=== PATIENT | male | born 1935 ===

== ENCOUNTER 2017-03-13 12:55 | Inpatient (IN) | payer MEDICARE, BC ==
[2017-03-13 12:55] VITALS: PULSE 80
[2017-03-13 13:01] VITALS: BMI 27.3
--- NOTE | 2017-03-13 13:16 | ED PDOC ---
Arrival/HPI - General Time Seen by Provider: 03/13/17 12:58 Historian: Patient - History of Present Illness Narrative History of Present Illness (Text): 03/13/17 13:10 A 82 year old male, whose past medical history includes diabetes, hypertension, hyperlipidemia, atrial fibrillation, pacemaker, CHF on lasix, CVA, GI bleeds and hypothyroidism, presents to the emergency department complaining of midsternal chest pain for approximately 45 minutes. Patient is unable to describe his pain and denies any radiation. Patient notes fatigue but denies any fever, chills, nausea, vomiting, abdominal pain, hematouria, hematochezia, shortness of breath, cough, numbness or any other complaints. Son notes constipation for 2 days. Denies any recent travel. Daughter reports patient was seen by urologist in [facility] yesterday for abdominal pain and urinary symptoms. Aspirin 325 mg was given by EMS prior to arrival. PMD: Dr. Hussein Time/Duration: Other (Approximately 45 minutes) Symptom Course: Unchanged Quality: Other Context: Home Past Medical History - Provider Review Nursing Documentation Reviewed: Yes - Infectious Disease Hx of Infectious Diseases: None - Tetanus Immunization Tetanus Immunization: Unknown - Cardiac Hx Cardiac Disorders: Yes Hx Hypertension: Yes Hx Internal Defibrillator: Yes Hx Pacemaker: Yes - Pulmonary Hx Respiratory Disorders: No - Neurological Hx Neurological Disorder: Yes HX Cerebrovascular Accident: Yes - HEENT Hx HEENT Disorder: Yes Hx Glaucoma: Yes - Renal Hx Renal Disorder: No - Endocrine/Metabolic Hx Endocrine Disorders: Yes Hx Diabetes Mellitus Type 1: Yes (using insulin pump) - Hematological/Oncological Hx Blood Disorders: Yes Hx Anemia: Yes - Integumentary Hx Dermatological Disorder: No - Musculoskeletal/Rheumatological Hx Musculoskeletal Disorders: Yes Hx Arthritis: Yes Hx Falls: No - Gastrointestinal Hx Gastrointestinal Disorders: Yes Other/Comment: recent nausea and diarrhea - Genitourinary/Gynecological Hx Genitourinary Disorders: No - Psychiatric Hx Psychophysiologic Disorder: No Hx Anxiety: No Hx Bipolar Disorder: No Hx Depression: No Hx Emotional Abuse: No Hx Hallucinations: No Hx Panic Disorder: No Hx Post Traumatic Stress Disorder: No Hx Psychosis: No Hx Physical Abuse: No Hx Schizophrenia: No Hx Sexual Abuse: No Hx Substance Use: No - Surgical History Other/Comment: cardiac stent, pacemaker - Anesthesia Hx Anesthesia: Yes Hx Anesthesia Reactions: No Hx Malignant Hyperthermia: No - Suicidal Assessment Feels Threatened In Home Enviroment: No Family/Social History - Physician Review Nursing Documentation Reviewed: Yes Family/Social History: No Known Family HX Smoking Status: Never Smoked Hx Alcohol Use: No Hx Substance Use: No Hx Substance Use Treatment: No Allergies/Home Meds Allergies/Adverse Reactions: Allergies No Known Allergies Allergy (Verified 12/10/16 18:43) Home Medications: Home Meds Medication Instructions Recorded Confirmed Allopurinol 300 mg PO DAILY 05/17/15 12/10/16 Carvedilol [Coreg] 12.5 mg PO BID 05/17/15 12/10/16 Furosemide [Lasix] 40 mg PO DAILY 05/17/15 12/10/16 Insulin Aspart, Recombinant 18 unit SC DAILY 05/17/15 12/10/16 [Novolog] Insulin Detemir [Levemir] 10 unit SC DAILY 05/17/15 12/10/16 Levothyroxine Sodium [Synthroid] 0.075 mg PO DAILY 05/17/15 12/10/16 Meclizine HCl [Meclizine] 25 mg PO TID 05/17/15 12/10/16 Nitroglycerin [Nitrostat] 0.4 mg SL PRN PRN 05/17/15 12/10/16 Cholecalciferol (Vitamin D3) 1,000 iu PO DAILY 07/30/15 12/10/16 [Vitamin D3] Aspirin [Adult Low Dose Aspirin EC] 81 mg PO DAILY 12/10/16 12/10/16 Atorvastatin [Lipitor] 20 mg PO DAILY 12/10/16 12/10/16 Digoxin [Lanoxin] 0.125 mg PO DAILY 12/10/16 12/10/16 Valsartan [Diovan] 80 mg PO DAILY 12/10/16 12/10/16 Review of Systems - Physician Review All systems were reviewed & negative as marked: Yes - Review of Systems Constitutional: Fatigue. absent: Fevers, Night Sweats Respiratory: absent: SOB, Cough Cardiovascular: Chest Pain Gastrointestinal: Constipation. absent: Abdominal Pain, Nausea, Vomiting, Hematochezia Genitourinary Male: absent: Hematuria Neurological: absent: Focal Weakness (/numbness) Physical Exam Vital Signs Reviewed: Yes Vital Signs Temp Pulse Resp BP Pulse Ox 03/13/17 15:03 79 18 121/90 98 03/13/17 13:31 98.1 F 75 16 132/70 99 03/13/17 13:26 98.1 F 75 16 132/70 99 03/13/17 13:01 98.2 F 75 18 109/70 97 Temperature: Afebrile Blood Pressure: Normal Pulse: Regular Respiratory Rate: Normal Appearance: Positive for: Non-Toxic, Comfortable, Other (Weak and pale appearing ) Pain Distress: None Mental Status: Positive for: Alert and Oriented X 3 - Systems Exam Head: Present: Atraumatic, Normocephalic Pupils: Present: PERRL Extroacular Muscles: Present: EOMI Conjunctiva: Present: Normal Mouth: Present: Moist Mucous Membranes Respiratory/Chest: Present: Clear to Auscultation, Good Air Exchange. No: Respiratory Distress, Accessory Muscle Use Cardiovascular: Present: Regular Rate and Rhythm, Normal S1, S2. No: Murmurs Abdomen: Present: Normal Bowel Sounds. No: Tenderness, Distention, Peritoneal Signs Rectal: Present: Normal Rectal Tone, Other (Brown stool, guaiac negative). No: Occult Blood, Rectal Tenderness, Gross Blood Upper Extremity: Present: Normal Inspection. No: Cyanosis, Edema Lower Extremity: Present: Normal Inspection, NORMAL PULSES. No: Edema, CALF TENDERNESS Neurological: Present: GCS=15, CN II-XII Intact, Speech Normal, Motor Func Grossly Intact, Normal Sensory Function, Normal Cerebellar Funct, Norm Deep Tendon Reflexes Skin: Present: Warm, Dry, Pale. No: Rashes Psychiatric: Present: Alert, Oriented x 3, Normal Insight, Normal Concentration Medical Decision Making ED Course and Treatment: 03/13/17 13:10 Impression: A 82 year old male with midsternal chest pain. Pale and weak on exam. Differential Diagnosis included but are not limited to: Chest pain, rule out ACS vs. Musculoskeletal vs. Anemia vs. Dissection Plan: -- Chest xray -- EKG -- Labs -- Urine culture and Urinalysis -- Aspirin -- Reassess and disposition Prior Visits: Notes and results from previous visits were reviewed. Patient last seen in the ED on 12/10/16 for YATES, abdominal pain and fatigue. Patient was hospitalized for abdominal pain and congestive heart failure. Progress Notes: EKG shows paced rhythm at 75 BPM with morphological changes compared to EKG from 12/10/16. Interpreted by me. 03/13/17 13:[address] Hi, who requested a copy of current EKG to compare to prior. Report Date : 03/13/2017 13:52:48 Procedure: Chest xray Dictator : Desmond Hernandez MD IMPRESSION: No active disease. 03/13/17 14:02 Rectal exam performed by me, chaperoned by EMT Amelie, showed normal tone, brown stool, guaiac negative. 03/13/17 14:[address] Hussein, who states to admit patient under the hospitalist. 03/13/17 14:[address] Hi, who recommends Nitroglycerin. States he will evaluate patient today. 03/13/17 15:16 Case handed off to Dr. Carrillo, hospitalist, to be admitted under his service. 03/13/17 15:35 Patient now complaining of feeling lightheaded but daughter also says he's been dizzy all week. Neuro exam repeat: No NFD; CN2-12intact, 5/5 MS, Sensation intact and equal; good finger to nose exam. Patient states at times he takes meclizine for this but it's not making him feel better. CT head ordered and case discussed again with Dr. Ulysses Gold who will f/u on CT results. - Critical Care Critical Care Minutes: 30 minutes - Lab Interpretations Lab Results: 03/13/17 13:00 03/13/17 13:00 Lab Results 03/13/17 13:40: Blood Type O POSITIVE, Antibody Screen Negative, BBK History Checked Patient has bt 03/13/17 13:21: Urine Color Yellow, Urine Appearance Sl cloudy, Urine pH 6.0, Ur Specific [place] >= 1.030, Urine Protein >=300 H, Urine Glucose (UA) 500 H, Urine Ketones Negative, Urine Blood Trace-intact H, Urine Nitrate Negative, Urine Bilirubin Negative, Urine Urobilinogen 1.0 H, Ur Leukocyte Esterase Negative, Urine RBC 0 - 2, Urine WBC 2 - 5, Ur Epithelial Cells 1 - 3, Urine Bacteria Mod 03/13/17 13:00: Digoxin 0.6 L 03/13/17 13:00: TSH 3rd Generation 4.81 H 03/13/17 13:00: PT 12.2 H, INR 1.13 H, APTT 24.7 03/13/17 13:00: Sodium 135, Potassium 4.9, Chloride 96 L, Carbon Dioxide 30, Anion Gap 14, BUN 27 H, Creatinine 1.2, Est GFR ( Amer) > 60, Est GFR ( Non-Af Amer) 58, Random Glucose 388 H* D, Calcium 9.2, Magnesium 2.3 H, Total Bilirubin 1.2, AST 39, ALT 43, Alkaline Phosphatase 164 H, Lactate Dehydrogenase 519, Total Creatine Kinase 81, Troponin I 0.06 D, NT-Pro-B Natriuret Pep 2620 H, Total Protein 7.0, Albumin 4.0, Globulin 3.1, Albumin/ Globulin Ratio 1.3 03/13/17 13:00: WBC 5.2 D, RBC 3.98, Hgb 11.9 L, Hct 36.9 L, MCV 92.7, MCH 29.9 , MCHC 32.2, RDW 15.0 H, Plt Count 105 L, MPV 11.2 H, Gran % 72.9 H, Lymph % ( Auto) 18.2 L, [place] % (Auto) 7.9 H, Eos % (Auto) 0.6 L, Baso % (Auto) 0.4, Gran # 3.81, Lymph # 1.0 L, [place] # 0.4, Eos # 0.0, Baso # 0.02 I have reviewed the lab results: Yes Interpretation: Abnormal lab values (glucose elevated and treated with insulin) - RAD Interpretation Radiology Orders: 03/13/17 13:11 CHEST PORTABLE [RAD] Stat Seed Specialist: Radiologist - Medication Orders Current Medication Orders: Discontinued Medications Aspirin (Aspirin) 325 mg PO STAT STA Stop: 03/13/17 13:10 Last Admin: 03/13/17 13:36 Dose: Insulin Human Regular (Humulin R) 7 units IVP STAT STA Stop: 03/13/17 14:05 Last Admin: 03/13/17 14:53 Dose: 7 units Nitroglycerin (Nitro-Bid 2% Oint) 1 ea TOP STAT STA Stop: 03/13/17 14:22 Last Admin: 03/13/17 15:00 Dose: 1 ea Ondansetron HCl (Zofran Inj) 4 mg IVP STAT STA Stop: 03/13/17 13:22 Last Admin: 03/13/17 15:01 Dose: 4 mg Ondansetron HCl (Zofran Inj) Confirm Administered Dose 4 mg .ROUTE .STK-MED ONE Stop: 03/13/17 13:24 Last Admin: 03/13/17 13:36 Dose: 4 mg Ondansetron HCl (Zofran Inj) 4 mg IVP STAT STA Stop: 03/13/17 14:47 Last Admin: 03/13/17 15:02 Dose: 4 mg NIHSS Scale ([place]) Time Performed: 12:59 - How Severe is the Stoke Baseline Level of Consciousness: 0=Alert LOC to Questions: 0=Both comments correct LOC to commands: 0=Obeys both correctly Best Gaze: 0=Normal Visual: 0=No visual loss Facial: 0=Normal Motor Arm - Left: 0=No drift Motor Arm - Right: 0=No drift Motor Leg - Left: 0=No drift Motor Leg - Right: 0=No drift Limb Ataxia: 0=Absent Sensory: 0=Normal Best Language: 0=No aphasia Dysarthia: 0=Normal articulation Extinction & Inattention (Neglect): 0=Normal, no object Score: 0 Risk Level: No Stroke Risk - Scribe Statement The provider has reviewed the documentation as recorded by the Shannon Quezada Provider Scribe Attestation: All medical record entries made by the Scribe were at my direction and personally dictated by me. I have reviewed the chart and agree that the record accurately reflects my personal performance of the history, physical exam, medical decision making, and the department course for this patient. I have also personally directed, reviewed, and agree with the discharge instructions and disposition. Disposition/Present on Arrival - Present on Arrival Any Indicators Present on Arrival: No History of DVT/PE: No History of Uncontrolled Diabetes: No Urinary Catheter: No History Surgical Site Infection Following: None - Disposition Have Diagnosis and Disposition been Completed?: Yes Diagnosis: Chest pain Disposition: HOSPITALIZED Disposition Time: 15:35 Patient Plan: Observation Condition: FAIR
[2017-03-13 13:30] LABS: ADD MANUAL DIFF? NO
[2017-03-13 13:40] LABS: BASO # 0.02 K/mm3 (0.0-2.0); BASO % 0.4 % (0.0-3.0); EOS % 0.6 % (1.5-5.0); GRAN # 3.81 (1.4-6.5); GRAN % 72.9 % (50.0-68.0); HEMATOCRIT 36.9 % (42.0-52.0); LYMPH % 18.2 % (22.0-35.0); MEAN CELL VOLUME 92.7 fL (80.0-105.0); MEAN CORPUSCULAR HEMOGLOBIN 29.9 pg (25.0-35.0); MEAN CORPUSCULAR HGB CONC 32.2 g/dl (31.0-37.0); MEAN PLATELET VOLUME 11.2 fl (7.0-11.0); MONO # 0.4 (0.1-0.6); MONO % 7.9 % (1.0-6.0); PLATELET COUNT 105 10^3/uL (120.0-450.0); WHITE BLOOD COUNT 5.2 10^3/ul (4.5-11.0)
[2017-03-13 13:46] LABS: ALB/GLOB RATIO 1.3 (1.1-1.8); ALKALINE PHOSPHATASE 164 U/L (38-133); ALT/SGPT 43 U/L (7-56); AST/SGOT 39 U/L (15-59); BILIRUBIN,TOTAL 1.2 mg/dL (0.2-1.3); BLOOD UREA NITROGEN 27 mg/dL (7-21); CALCIUM 9.2 mg/dL (8.4-10.5); CARBON DIOXIDE 30 mmol/L (21-33); CHLORIDE 96 mmol/L (98-107); GFR AFRICAN-AMERICAN > 60; INR 1.13 (0.93-1.08); MAGNESIUM 2.3 mg/dL (1.7-2.2); PARTIAL THROMBOPLASTIN TIME 24.7 Seconds (23.7-30.8); POTASSIUM 4.9 mmol/L (3.6-5.0); SODIUM 135 mmol/L (132-148)
--- NOTE | 2017-03-13 13:54 | RAD ---
HISTORY: chest pain COMPARISON: 12/08/2016 FINDINGS: LUNGS: No active pulmonary disease. PLEURA: No significant pleural effusion identified, no pneumothorax apparent. CARDIOVASCULAR: Moderate cardiomegaly. Single lead pacemaker OSSEOUS STRUCTURES: No significant abnormalities. VISUALIZED UPPER ABDOMEN: Normal. OTHER FINDINGS: Single lead pacemaker IMPRESSION: No active disease.
[2017-03-13 13:58] LABS: GLUCOSE,RANDOM 388 mg/dL (70-110); TROPONIN I 0.06 ng/mL
[2017-03-13 14:04] LABS: URINE BILIRUBIN NEGATIVE (NEGATIVE); URINE BLOOD TRACE-INTACT (NEGATIVE); URINE GLUCOSE (UA) 500 mg/dL (NEGATIVE); URINE KETONE NEGATIVE (NEGATIVE); URINE LEUKOCYTE ESTERASE NEGATIVE Leu/uL (NEGATIVE); URINE PROTEIN >=300 mg/dL (<30 mg/dL)
[2017-03-13] MEDS ORDERED: Insulin Regular 1 UNITS/0.01 ML ML IVP STA ×2 (14:04→16:14)
[2017-03-13 14:06] LABS: URINE APPEARANCE SL CLOUDY (CLEAR); URINE COLOR YELLOW (YELLOW)
[2017-03-13 14:14] LABS: URINE BACTERIA MOD (NEG); URINE RBC 0 - 2 /hpf (0-2)
[2017-03-13] MEDS ORDERED: Nitroglycerin 2% Ointment Foilpak UD TOP STA (14:21)
--- NOTE | 2017-03-13 17:00 | CT ---
PROCEDURE: CT HEAD WITHOUT CONTRAST. HISTORY: dizzy vs lightheaded for a week COMPARISON: Noncontrast head CT performed 12/12/16 TECHNIQUE: Axial computed tomography images were obtained through the head/brain without intravenous contrast. Radiation dose: Total exam DLP = 725.84 mGy-cm. This CT exam was performed using one or more of the following dose reduction techniques: Automated exposure control, adjustment of the mA and/or kV according to patient size, and/or use of iterative reconstruction technique. FINDINGS: HEMORRHAGE: No intracranial hemorrhage. BRAIN: Diffuse atrophy with prominence of the ventricles and sulci noted. No mass effect or edema. Dense intracranial atherosclerotic calcifications. Bilateral basal ganglia calcifications. Chronic right parietal occipital lobe encephalomalacia. Mild scattered white matter hypodensities, which are nonspecific, but often seen with chronic microvascular ischemic disease. Please note that MRI with diffusion imaging is more sensitive in the detection of acute ischemic event. VENTRICLES: No hydrocephalus. CALVARIUM: Unremarkable. PARANASAL SINUSES: Mucosal thickening left sphenoid sinus. Trace fluid/mucosal thickening, right maxillary sinus. MASTOID AIR CELLS: Unremarkable as visualized. No inflammatory changes. OTHER FINDINGS: None. IMPRESSION: Generalized atrophy. Dense intracranial atherosclerotic calcifications. Chronic right parieto-occipital lobe encephalomalacia. Mild scattered nonspecific white matter changes. Please note that MRI with diffusion imaging is more sensitive in the detection of acute ischemic event. Mucosal thickening of the left sphenoid sinus. Trace fluid/mucosal thickening, right maxillary sinus.
--- NOTE | 2017-03-13 17:31 | CP.PCM.HP ---
<Carlitos Angeles - Last Filed: 03/13/17 20:22> History of Present Illness - History of Present Illness History of Present Illness: A 82 year old male, whose past medical history includes diabetes, hypertension, hyperlipidemia, atrial fibrillation, pacemaker, CHF on lasix, CVA, GI bleeds and hypothyroidism, presents to the emergency department complaining of constant left and right sided, non-radiating 9/10 chest pain since this morning. Prior to to the chest pain, the pt. took Keflex for a UTI that had been diagnosed the previous day at [facility]. Pt. also complained of dizziness , nausea, vomiting, and consitpation from the previous day and dysuria. Pt. denies any fever, chills, hematouria, hematochezia, shortness of breath, cough, numbness or any other complaints. Daughter reports patient was seen by urologist in [facility] yesterday for abdominal pain and urinary symptoms. Aspirin 325 mg was given by EMS prior to arrival. PMD: Dr. Hussein Urologist: Dr. Hahn Telephoto Installer: Dr. Taylor PMH: Diabetes HTN HLD Afib, s/p pacemaker CHF CVA GI Bleeds Hypothyroidism Denies any recent travel Denies sick contacts Tob: denies Alc: denies Drug: denies All: NKDA Present on Admission - Present on Admission Any Indicators Present on Admission: No Review of Systems - EENT Eyes: absent: Change in Vision Ears: Dizziness Nose/Mouth/Throat: absent: Sore Throat, Neck Pain - Cardiovascular Cardiovascular: Chest Pain, Chest Pain at Rest. absent: Edema, Pain Radiating to Arm/Neck/Jaw, Leg Edema, Pedal Edema - Respiratory Respiratory: absent: Hemoptysis, Dyspnea on Exertion, Wheezing, Pain on Inspiration, Chest Congestion - Gastrointestinal Gastrointestinal: Abdominal Pain, Constipation, Nausea, Vomiting (Non Bloody). absent: Coffee Ground Emesis, Diarrhea, Dysphagia, Hematemesis, Hematochezia - Genitourinary Genitourinary: Dysuria. absent: Flank Pain - Integumentary Integumentary: absent: Rash, Skin Pain, Wounds - Neurological Neurological: Dizziness. absent: Abnormal Hearing, Abnormal Movements, Headaches - Psychiatric Psychiatric: Anxiety, Irritability - Endocrine Endocrine: Heat Intolorance. absent: Cold Intolorance, Polydipsia, Polyphagia, Polyuria Past Patient History - Infectious Disease Hx of Infectious Diseases: None - Tetanus Immunizations Tetanus Immunization: Unknown - Past Social History Smoking Status: Never Smoked Drugs: Denies Home Situation {Lives}: With Family - CARDIAC Hx Cardiac Disorders: Yes Hx Hypertension: Yes Hx Internal Defibrillator: Yes Hx Pacemaker: Yes - PULMONARY Hx Respiratory Disorders: No - NEUROLOGICAL Hx Neurological Disorder: Yes HX Cerebrovascular Accident: Yes - HEENT Hx HEENT Problems: Yes Hx Glaucoma: Yes - RENAL Hx Chronic Kidney Disease: No - ENDOCRINE/METABOLIC Hx Endocrine Disorders: Yes Hx Diabetes Mellitus Type 1: Yes (using insulin pump) - HEMATOLOGICAL/ONCOLOGICAL Hx Blood Disorders: Yes Hx Anemia: Yes - INTEGUMENTARY Hx Dermatological Problems: No - MUSCULOSKELETAL/RHEUMATOLOGICAL Hx Musculoskeletal Disorders: Yes Hx Arthritis: Yes Hx Falls: No - GASTROINTESTINAL Hx Gastrointestinal Disorders: Yes Other/Comment: recent nausea and diarrhea - GENITOURINARY/GYNECOLOGICAL Hx Genitourinary Disorders: No - PSYCHIATRIC Hx Psychophysiologic Disorder: No Hx Anxiety: No Hx Bipolar Disorder: No Hx Depression: No Hx Emotional Abuse: No Hx Hallucinations: No Hx Panic Symptoms: No Hx Post Traumatic Stress Disorder: No Hx Psychosis: No Hx Physical Abuse: No Hx Schizophrenia: No Hx Sexual Abuse: No Hx Substance Use: No - SURGICAL HISTORY Other/Comment: cardiac stent, pacemaker - ANESTHESIA Hx Anesthesia: Yes Hx Anesthesia Reactions: No Hx Malignant Hyperthermia: No Meds Home Medications: Home Medication List Medication Instructions Recorded Confirmed Type Cholecalciferol [Vitamin D 1000 IU] 1,000 iu PO DAILY tab 03/15/17 Rx Insulin Human Regular-MED [HumuLIN 0 units SC ACHS ml 03/15/17 Rx R MED] Zolpidem [Ambien] 5 mg PO HS PRN tab 03/15/17 Rx Allergies/Adverse Reactions: Allergies Allergy/AdvReac Type Severity Reaction Status Date / Time No Known Allergies Allergy Verified 12/10/16 18:43 Physical Exam - Constitutional Appears: Non-toxic, No Acute Distress - Head Exam Head Exam: ATRAUMATIC, NORMOCEPHALIC - Eye Exam Eye Exam: EOMI, Normal appearance - ENT Exam ENT Exam: Mucous Membranes Moist - Neck Exam Neck exam: Positive for: Normal Inspection - Respiratory Exam Respiratory Exam: Clear to Auscultation Bilateral, NORMAL BREATHING PATTERN - Cardiovascular Exam Cardiovascular Exam: REGULAR RHYTHM, RRR, +S1, +S2. absent: Systolic Murmur - GI/Abdominal Exam GI & Abdominal Exam: Hypoactive Bowel Sounds, Normal Bowel Sounds, Soft. absent : Distended, Firm, Guarding, Rebound, Rigid, Tenderness - Extremities Exam Extremities exam: Positive for: full ROM, pedal pulses present. Negative for: joint swelling - Back Exam Back exam: NORMAL INSPECTION. absent: CVA tenderness (L), CVA tenderness (R), rash noted, tenderness, vertebral tenderness - Neurological Exam Neurological exam: Alert, CN II-XII Intact, Oriented x3 - Psychiatric Exam Psychiatric exam: Agitated, Normal Affect - Skin Skin Exam: Dry, Intact, Normal Color, Warm Results - Vital Signs Recent Vital Signs: Last Vital Signs Temp 98.1 F 03/13/17 13:31 Pulse 76 03/13/17 15:54 Resp 16 03/13/17 15:54 BP 94/50 L 03/13/17 15:54 Pulse Ox 100 03/13/17 15:54 - Labs Result Diagrams: 03/13/17 13:00 03/13/17 13:00 Assessment & Plan - Assessment and Plan (Free Text) Assessment: 82M with complaints of chest pain, dizziness, and UTI Plan: Chest Pain Trop #1 negative at .06 Trop #2 positive at 1.16 EKG shows paced rhythm at 75 BPM with morphological changes compared to EKG from 12/10/16. -needs official read CXR No Active Disease, Moderate Cardiomegaly Cardiology Consult - Dr. Taylor - appreciate recs Nitroglycerin prn ASA 81mg daily Lipitor 20mg daily Coreg 12.5 BID CHF(systolic) Continue Digoxin .125mg Continue Lasix 40mg Echo 11/2016 shows EF 30% BNP 2620 UTI diagnosed at [facility] 1 day prior to admission UA positive for protein, glucose possible adverse reaction to Keflex 1gm IV Ceftriaxone given ID Consult - Dr. Vasques - appreciate recs Dizziness Meclizine 25mg CT Head - please read full report -Gen atrophy, dense intracranial atherosclerotic calcifications -Chronic right parieto-occipital lobe encephalomalacia Diabetes ISS Med HgA1C ordered Hypothyroidism TSH 4.81 mildly elevated continue Synthroid 75mcg Hx of GI Bleed Stool Guaiac negative - Date & Time Date: 03/13/17 Time: 15:00 <Mehrdad Gold - Last Filed: 03/15/17 13:49> Results - Vital Signs Recent Vital Signs: Last Vital Signs Temp 97.7 F 03/15/17 06:00 Pulse 75 03/15/17 09:05 Resp 18 03/15/17 06:00 BP 119/77 03/15/17 09:05 Pulse Ox 98 03/15/17 06:00 - Labs Result Diagrams: 03/15/17 07:00 03/15/17 07:00 Labs: Laboratory Results - last 24 hr 03/14/17 03/14/17 03/14/17 16:13 18:47 19:00 WBC RBC Hgb Hct MCV MCH MCHC RDW Plt Count MPV Gran % Lymph % (Auto) [place] % (Auto) Eos % (Auto) Baso % (Auto) Gran # Lymph # [place] # Eos # Baso # APTT 48.5 H Sodium Potassium Chloride Carbon Dioxide Anion Gap BUN Creatinine Est GFR ( Amer) Est GFR (Non-Af Amer) POC Glucose (mg/dL) 269 H Random Glucose Calcium Total Bilirubin AST ALT Alkaline Phosphatase Total Protein Albumin Globulin Albumin/Globulin Ratio Ur Random Creatinine 135 Ur Random Sodium 13 Ur Random Potassium 91.4 Ur Random Urea Nitrogn 363 03/14/17 03/15/17 03/15/17 21:06 02:45 07:00 WBC 14.1 H D RBC 4.14 Hgb 12.2 L Hct 37.4 L MCV 90.3 MCH 29.5 MCHC 32.6 RDW 15.4 H Plt Count 119 L MPV 12.6 H Gran % 82.7 H Lymph % (Auto) 7.6 L [place] % (Auto) 9.6 H Eos % (Auto) 0.0 L Baso % (Auto) 0.1 Gran # 11.69 H Lymph # 1.1 L [place] # 1.4 H Eos # 0.0 Baso # 0.01 APTT 85.7 H* Sodium Potassium Chloride Carbon Dioxide Anion Gap BUN Creatinine Est GFR ( Amer) Est GFR (Non-Af Amer) POC Glucose (mg/dL) 189 H Random Glucose Calcium Total Bilirubin AST ALT Alkaline Phosphatase Total Protein Albumin Globulin Albumin/Globulin Ratio Ur Random Creatinine Ur Random Sodium Ur Random Potassium Ur Random Urea Nitrogn 03/15/17 07:00 WBC RBC Hgb Hct MCV MCH MCHC RDW Plt Count MPV Gran % Lymph % (Auto) [place] % (Auto) Eos % (Auto) Baso % (Auto) Gran # Lymph # [place] # Eos # Baso # APTT Sodium 132 Potassium 4.4 Chloride 99 Carbon Dioxide 17 L Anion Gap 20 BUN 67 H Creatinine 2.7 H Est GFR ( Amer) 28 Est GFR (Non-Af Amer) 23 POC Glucose (mg/dL) Random Glucose 183 H Calcium 8.3 L Total Bilirubin 1.2 AST 1194 H ALT 886 H Alkaline Phosphatase 162 H Total Protein 6.6 Albumin 3.9 Globulin 2.8 Albumin/Globulin Ratio 1.4 Ur Random Creatinine Ur Random Sodium Ur Random Potassium Ur Random Urea Nitrogn Attending/Attestation - Attestation I have personally seen and examined this patient.: Yes I have fully participated in the care of the patient.: Yes I have reviewed all pertinent clinical information: Yes Notes (Text): I have seen and examined patient at bedside. Agree with the above note with the following additions/ exceptions: This is 82 year old male with history of DM-2 hypertension, hyperlipidemia, chronic atrial fibrillation, pacemaker, CHF due to systolic dysfunction (EF~30%) on lasix, CVA, GI bleeds and hypothyroidism, recently diagnosed with UTI on keflex who came for evaluation of chest pain and found to have IA. EKG showed paced rhythm. Initial trop borderline however second trop was elevated. Telephoto Installer on board. He was started on lovenox. CXR negative. Patient also has partially treated UTI. Will give one dose of rocephin and will consult ID. One of the BP reading was low. Will hold his bp meds today and will give IVF for few hours. Patient reports that at home he was dizzy and his packaging materials inspector recommended to stop taking valsartan. He didnt take any bp meds today and still BP is on the lower side. He appears volume depleted. Urine output also low. Dr Mehrdad Gold
[2017-03-13] MEDS ORDERED: cefTRIAXone 1 gm 1 GM/100 ML BAG IVPB STA (17:44)
[2017-03-13] MEDS: Sodium Chloride 0.9% 100 ML IV SCH ×2 (18:56→22:31)
--- NOTE | 2017-03-13 20:18 | CARD ---
APPROVED REPORT EKG Measurement Heart [id number] <Conclusion> Electronic ventricular pacemaker
[2017-03-13] MEDS ORDERED: Pneumococcal 23-Valent Vaccine IM ONE (21:20)
[2017-03-13] MEDS: Insulin Reg-MEDIUM-Coverage SC SCH (22:07)
[2017-03-13] MEDS: Enoxaparin 80 mg Syringe SC SCH (22:08)
[2017-03-14 06:57] LABS: ADD MANUAL DIFF? NO
[2017-03-14 07:06] LABS: BASO # 0.01 K/mm3 (0.0-2.0); BASO % 0.1 % (0.0-3.0); GRAN # 8.35 (1.4-6.5); GRAN % 80.3 % (50.0-68.0); HEMATOCRIT 40.3 % (42.0-52.0); LYMPH # 1.1 (1.2-3.4); MEAN CORPUSCULAR HEMOGLOBIN 29.5 pg (25.0-35.0); MEAN PLATELET VOLUME 11.9 fl (7.0-11.0); MONO # 0.9 (0.1-0.6); MONO % 8.6 % (1.0-6.0); PLATELET COUNT 114 10^3/uL (120.0-450.0); WHITE BLOOD COUNT 10.4 10^3/ul (4.5-11.0)
[2017-03-14 07:14] LABS: ALB/GLOB RATIO 1.5 (1.1-1.8); BILIRUBIN,TOTAL 1.6 mg/dL (0.2-1.3); CALCIUM 8.9 mg/dL (8.4-10.5)
[2017-03-14 07:37] LABS: POTASSIUM 6.2 mmol/L (3.6-5.0)
[2017-03-14] MEDS ORDERED: Sodium Chloride 0.9% 1,000 ML IV SCH ×3 (07:45→15:53)
[2017-03-14] MEDS ORDERED: Insulin Lispro (humaLOG) MEDIUM Coverage SC STA (08:01)
[2017-03-14] MEDS ORDERED: Dextrose 50% SYRINGE Inj (50 ml) IVP ONE (08:03)
[2017-03-14] MEDS: Insulin Reg-MEDIUM-Coverage SC SCH ×4 (08:22→21:28)
--- NOTE | 2017-03-14 09:46 | CP.PCM.PN ---
<Carlitos Angeles - Last Filed: 03/14/17 20:29> Subjective - Date & Time of Evaluation Date of Evaluation: 03/14/17 Time of Evaluation: 07:00 - Subjective Subjective: 82 year old male, whose pmh includes recent UTI, DM, HTN, CAD, HLD, Afib w/ pacemaker, CHF on lasix, CVA, GI bleeds and hypothyroidism presented to the ED complaining of constant left and right sided, non-radiating 9/10 chest pain. Today, he still complains of chest pain, but denies any other symptoms including headache, fever, chills, shortness of breath, N/V/D, or any dysuria. Objective - Vital Signs/Intake and Output Vital Signs (last 24 hours): Temp Pulse Resp BP Pulse Ox 97 F L 75 20 129/82 97 03/14/17 06:00 03/14/17 06:00 03/14/17 06:00 03/14/17 06:00 03/14/17 06:00 Intake and Output: 03/14/17 03/14/17 06:59 18:59 Intake Total 380 Output Total 400 Balance -20 - Medications Medications: Current Medications Aspirin (Ecotrin) 81 mg PO DAILY [facility] Last Admin: 03/13/17 17:43 Dose: Not Given Atorvastatin Calcium (Lipitor) 20 mg PO DAILY [facility] Last Admin: 03/13/17 22:08 Dose: 20 mg Carvedilol (Coreg) 12.5 mg PO BID [facility] Cholecalciferol (Vitamin D) 1,000 iu PO DAILY [facility] Digoxin (Lanoxin) 0.125 mg PO 1400 [facility] Enoxaparin Sodium (Lovenox) 70 mg SC Q12H [facility] PRN Reason: Protocol Last Admin: 03/13/17 22:08 Dose: 70 mg Furosemide (Lasix) 40 mg PO DAILY [facility] Sodium Chloride (Sodium Chloride 0.9%) 1,000 mls @ 100 mls/hr IV .Q10H [facility] Last Admin: 03/14/17 08:49 Dose: 100 mls/hr Insulin Human Regular (Humulin R Med) 0 units SC ACHS [facility] PRN Reason: Protocol Last Admin: 03/14/17 08:22 Dose: 8 units Levothyroxine Sodium (Synthroid) 75 mcg PO DAILY [facility] Lorazepam (Ativan) 0.5 mg IVP Q6 PRN; Protocol PRN Reason: Anxiety Last Admin: 03/13/17 20:26 Dose: 0.5 mg Meclizine HCl (Antivert) 25 mg PO TID PRN PRN Reason: Dizziness Last Admin: 03/13/17 17:49 Dose: 25 mg Nitroglycerin (Nitrostat Sl Tab) 0.4 mg SL Q5M PRN PRN Reason: CHEST PAIN - Labs Labs: 03/14/17 06:15 03/14/17 06:15 PT 12.2 Seconds (9.9-11.8) H 03/13/17 13:00 INR 1.13 (0.93-1.08) H 03/13/17 13:00 APTT 24.7 Seconds (23.7-30.8) 03/13/17 13:00 - Constitutional Appears: Non-toxic, No Acute Distress - Head Exam Head Exam: ATRAUMATIC, NORMOCEPHALIC - Eye Exam Eye Exam: EOMI - ENT Exam ENT Exam: Mucous Membranes Dry - Neck Exam Neck Exam: Full ROM, Normal Inspection. absent: Lymphadenopathy - Respiratory Exam Respiratory Exam: Clear to Ausculation Bilateral, NORMAL BREATHING PATTERN. absent: Rhonchi, Wheezes - Cardiovascular Exam Cardiovascular Exam: REGULAR RHYTHM, RRR - GI/Abdominal Exam GI & Abdominal Exam: Soft, Normal Bowel Sounds. absent: Tenderness - Extremities Exam Extremities Exam: Full ROM, Normal Capillary Refill. absent: Joint Swelling - Back Exam Back Exam: Full ROM, NORMAL INSPECTION. absent: CVA tenderness (L), CVA tenderness (R), rash noted, tenderness - Neurological Exam Neurological Exam: Alert, Awake, CN II-XII Intact, Oriented x3 - Psychiatric Exam Psychiatric exam: Normal Affect, Normal Mood - Skin Skin Exam: Dry, Intact, Normal Color, Warm Assessment and Plan - Assessment and Plan (Free Text) Assessment: 82 year old male, presented to the emergency department complaining of constant left and right sided, non-radiating 9/10 chest pain with acute renal failure. Plan: Chest Pain Trop #1 negative at .06 Trop #2 positive at 1.16 Trop #3 positive at 18.30 Trop #4 positive at 36.20 EKG shows paced rhythm at 75 BPM Electronic ventricular pacemaker CXR No Active Disease, Moderate Cardiomegaly Nitroglycerin prn ASA 81mg daily Lipitor 20mg daily ON HOLD due to elevated LFTs Coreg 12.5 BID Cardiology Consult - Dr. Taylor - appreciate recs -ECHO - needs official read preliminary reading EF of 27% -possible transfer to [facility] -HOLD Digoxin -HOLD Lasix Acute Renal Failure BUN/Cr 55/2.3 Pt. did not make urine last night Pt. appears dehydrated and has dry mucuos membranes Renal Consult -Dr. Jalloh, appreciate recs -currently oliguric in the setting of decreased PO intake and having been on renin-angiotensin system blockade which inhibit renal autoregulation and predispose to prerenal azotemia. -IV fluids 100ml/hr, however monitor respiratory status, will stop fluids if pt. becomes congested -one dose of Kaexylate due to K+ of 6.2 -one dose of Lasix 40mg -Urine Studies to confirm prerenal etiology Na 13 K+ 91.4 Urea 363 Cr 135 -Renal Ultrasound to assess renalvascular disease -please see full report -1.9cm left upper pole renal cortical cyst. Otherwise unremarkable Serum BUN(55) & Cr (2.3) is high, BUN/Cr >20 (24), FeNA < 1 (.16), Ur/Serum Cr ( 59) >40, which increases likelihood of prerenal azotemia CHF(systolic) Digoxin .125mg HOLD per cardio Lasix 40mg HOLD per cardio but received one dose per Renal Echo 11/2016 shows EF 30% BNP 2620 UTI diagnosed at [place] 1 day prior to admission UA positive for protein, glucose possible adverse reaction to Keflex 1gm IV Ceftriaxone given ID Consult - Dr. Vasques - appreciate recs cont IV Ceftrixone PSA levels Follow urine cultures Dizziness Meclizine 25mg CT Head - please read full report -Gen atrophy, dense intracranial atherosclerotic calcifications -Chronic right parieto-occipital lobe encephalomalacia Diabetes ISS Med HgA1C 7.7 Hypothyroidism TSH 4.81 mildly elevated continue Synthroid 75mcg Hx of GI Bleed Stool Guaiac negative <Mehrdad Gold - Last Filed: 03/18/17 10:49> Objective - Vital Signs/Intake and Output Vital Signs (last 24 hours): Temp Pulse Resp BP Pulse Ox 97.7 F 75 18 119/77 98 03/15/17 06:00 03/15/17 09:05 03/15/17 06:00 03/15/17 09:05 03/15/17 06:00 - Labs Labs: 03/15/17 07:00 03/15/17 07:00 PT 12.2 Seconds (9.9-11.8) H 03/13/17 13:00 INR 1.13 (0.93-1.08) H 03/13/17 13:00 APTT 85.7 Seconds (23.7-30.8) H* 03/15/17 02:45 Attending/Attestation - Attestation I have personally seen and examined this patient.: Yes I have fully participated in the care of the patient.: Yes I have reviewed all pertinent clinical information, including history, physical exam and plan: Yes Notes (Text): I have seen and examined patient at bedside. 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 EKG showed paced rhythm. Troponins are elevated. Kier Pleater on board. He was started on heparin and stopped lovenox due to renal insufficiency. CXR negative. Echo showed EF of 27%. Also has worsening of acute renal failure currently oliguric in the setting of decrease PO intake and was on valsartan which was stopped. Continue IVF for now. Will carefully monitor patient clinically for any fluid overload. For hyperkalemia, insulin and kayexelate was given. Renal ultrasound showed cortical cyst. Digoxin and lasix on hold for now. Patient also has partially treated UTI. Will continue rocephin as per ID. Also has transaminitis which is also most likely due to hypoperfusion. Will like to obtain GI consult however patient is being transferred to [facility] for further care. Dr Mehrdad Gold
[2017-03-14] MEDS: Levothyroxine 75 MCG TAB PO SCH (10:37)
[2017-03-14] MEDS ORDERED: Heparin25000 units/250ml 1/2NS 25,000 UNITS/250 ML BAG IV PRN (10:46)
[2017-03-14] MEDS ORDERED: Sod Polystyrene Sulf 15 gm/60 ml Oral Susp PO ONE ×2 (11:07→19:53)
--- NOTE | 2017-03-14 11:11 | CON ---
DATE: 03/14/2017 INDICATIONS: Chest pain, myocardial infarction. HISTORY OF PRESENT ILLNESS: This is an 82-year-old man, known to our practice, admitted yesterday through the Emergency Room when he complained of chest discomfort which was severe. It was present for several hours. It was associated with nausea and dizziness, subsequently admitted and has positive troponins. He is on telemetry. His creatinine bumped to 2.0. His potassium is 6.2 this morning. He is being evaluated by renal. He has been given IV insulin. He is resting comfortably in bed. There is a milder form of residual chest discomfort, but it is not severe. There is no shortness of breath, orthopnea, PND, syncope, presyncope, vertigo, edema or claudication. There is no fever, chills, cough, sputum production, hemoptysis. There is no abdominal pain reported. PAST MEDICAL HISTORY: Complex. He has known coronary artery disease with a remote myocardial infarction many years ago with severe LV dysfunction. He has undergone an ICD implant more recently and at that time, a cardiac catheterization disclosed coronary artery disease and he was treated medically. He has a history of atrial fibrillation and GI bleeding, so he is not on anticoagulation chronically. He has a history of diabetes, hypertension, hyperlipidemia, mitral regurgitation, hypothyroidism, gout, cataracts gallstones. His platelet count is low. There is no history of rheumatic fever, stroke, TIA. MEDICATIONS: At the time of admission included aspirin, allopurinol, Coreg, Keflex, digoxin, furosemide, Lipitor, meclizine, nitroglycerin p.r.n., insulin, and thyroid replacement. ALLERGIES: There are no medication allergies. SOCIAL HISTORY: He lives at home. He does not smoke. He does not drink. FAMILY HISTORY: Noncontributory. REVIEW OF SYSTEMS: A 10-point review of systems is otherwise unremarkable except as noted above. PHYSICAL EXAMINATION: GENERAL: He is a well-developed elderly male lying in bed in no acute distress. His rhythm is V-paced. VITAL SIGNS: He is afebrile. Blood pressure 129/82. Earlier, he had systolic blood pressures in the 90s. IV fluids were given. Respirations 20, O2 sat 97- 100% on nasal cannula. HEENT: Reveals no neck vein distention, thyromegaly, or carotid bruits. Mucous membranes moist. Conjunctivae are pink. NECK: Supple. CHEST: Lung greene clear. HEART: Revealed normal first and second heart sounds. There is a soft systolic murmur along the left sternal border. PMI is laterally displaced. ABDOMEN: Soft. Bowel sounds are present. No mass, organomegaly, tenderness, rebound, guarding, CVA tenderness or palpable abdominal aortic aneurysm. EXTREMITIES: Revealed no cyanosis, clubbing, or edema. NEUROLOGIC: He was awake, alert and oriented. PSYCHIATRIC: Normal as to mood and affect. SKIN: Warm and dry. No rash or cellulitis. LABORATORY AND IMAGING: A chest x-ray reveals no active disease. A CT scan of the head reveals generalized atrophy, dense intracranial atherosclerotic calcifications, chronic right parietooccipital lobe encephalomalacia. White count normal, platelet count low at 114,000, hemoglobin 12.9, hematocrit 40.3, PT 12.2, INR 1.13, PTT 24.7. Electrolytes initially unremarkable. Repeat potassium 6.2, BUN 27, creatinine 1.2, repeat 48 and 2.0, blood sugar is in the 300 range. LFTs elevated. CK 81 initially. Troponin 0.06 initially, repeat 1.16 and 18.3. BNP 2620. TSH 4.81. Digoxin level 0.6. IMPRESSION: The patient is an 82-year-old man who suffered a myocardial infarction, probably yesterday morning. His troponins are elevated. EKG is a paced rhythm. This morning, his labs are abnormal as noted above. His creatinine has risen to 2.0. His potassium to 6.2. This is being addressed. A renal consultation is underway. He got IV fluids for a short period of hypotension. He is getting aspirin, Coreg and Lipitor. I would hold digoxin and Lasix for the time being. He got nitro paste and Rocephin. He is on Synthroid, vitamin D. I have discussed his case with Dr. Taylor who follows him in the office. He is discussing with the family whether or not a transfer to [facility] would be appropriate. In the meantime, he is being evaluated by renal. He is on telemetry. We will monitor I's and O's, stool for occult blood and labs. I advise a dose of Kayexalate if renal agrees. I would be cautious with IV fluids given his known LV dysfunction and current acute myocardial infarction. He is on telemetry. He can be out of bed to a chair. I would start him on a heparin drip. I will follow along with you. I will make additional recommendations based on his clinical course. I have also ordered an echocardiogram. Ramakrishna Weiner MD cc: [id number] TT: 03/14/2017 11:10:25 Confirmation # [id number] Dictation # [id number] tn MTDD
--- NOTE | 2017-03-14 12:14 | CON ---
DATE: 03/14/2017 An 82-year-old male with past medical history of diabetes, hypertension, hyperlipidemia, AFib, not on anticoagulation, status post pacemaker, CHF with systolic dysfunction, status post CVA and status po st GI bleeds and hypothyroidism. Presented yesterday with chest pain since yesterday morning, found to have acute [place]. Labs done today consistent with acute renal failure with hyperkalemia. Nephrology being consulted for the same. Per patient and family, who are at bedside, patient started having decreased urine output last week a long with some mild dysuria and pain in right abdomen. He denies any foul-smelling urine. However, family took him to [facility], where he was diagnosed with a UTI 2 days ago . The patient was given a dose of IV antibiotics (name unknown) and discharged on cephalexin. The p atient's urine output only mildly improved, has been having decreased p.o. intake with poor appetite over these past few days. Otherwise, also reports vertigo that is chronic. Denies any shortness of breath or palpitations. Denies any leg swelling. The patient is usually very active, going to the [facility] every day and walking slowly on treadmill without any shortness of breath. Denies any chronic ach es or pains and denies using any pain medications. PAST MEDICAL HISTORY: As above. SOCIAL HISTORY: Denies smoking. FAMILY HISTORY: . REVIEW OF SYSTEMS: GENERAL: Decreased appetite as noted above, otherwise previous to recent UTI, had been feeling well, eating well. HEENT: Reports visual disturbance that is chronic. Reports being told that diabetes affected his ey es. Denies any cold-like symptoms. Denies any difficulty swallowing. CARDIOVASCULAR: As mentioned in HPI. RESPIRATORY: No dyspnea on exertion. GASTROINTESTINAL: Denies any nausea, vomiting, but has been having constipation lately. Denies any blood in stool. GENITOURINARY: As mentioned in HPI. Denies any flank pain. SKIN: Denies any itching or rashes. NEUROLOGIC: Vertigo. Denies any headaches. PSYCHIATRIC: Denies any depression or anxiety. HEMATOLOGIC: Denies any easy bruising or bleeding. PHYSICAL EXAMINATION: VITAL SIGNS: This morning, blood pressure 129/82, heart rate 75, respirations 20, O2 sat 97% via arlin al cannula, temperature 97 degrees. Lowest reported blood pressure yesterday 94/50 at about 4 p.m. GENERAL: No distress, conversing coherently, in full sentences. HEENT: Moist mucous membranes, nonicteric. NECK: Normal neck inspection. RESPIRATORY: Lungs clear to auscultation bilaterally, no rales, no rhonchi, no wheezes. CARDIOVASCULAR: S1, S2 normal, no murmurs, no gallops, no rubs. Peripheral pulses: Good bilateral dorsalis pedis pulses. No femoral bruit, no abdominal bruit, no carotid bruit. GASTROINTESTINAL: Abdomen soft, nontender, nondistended. GENITOURINARY: No bladder distention. No flank tenderness. EXTREMITIES: Mild bilateral lower leg edema. SKIN: Warm, no cyanosis. Good capillary refill. MUSCULOSKELETAL: No spinal tenderness. PSYCHIATRIC: Normal mood, normal affect. NEUROLOGIC: 5/5 bilateral upper and lower extremity motor strength. LABORATORIES: This morning, CBC: WBC 10.4, hemoglobin 12.9, hematocrit 40.3, platelets 114. Chemis try panel: Sodium 135, potassium 6.2, chloride 97, bicarb 23, BUN 48, creatinine 2.0, glucose 305, c alcium 8.9, magnesium 1.6, AST 300, ALT 187, alk phos 188, albumin 4.2. Troponin 18.3. UA from yest erday: Specific gravity greater than 1.030, urine protein greater than 300 mg/dL, glucose 500, trace blood, 0-2 RBCs, 2-5 WBCs per high power field, moderate bacteria. Chest x-ray, directly visualized, no pulmonary vascular congestion noted. ASSESSMENT: 1. Acute renal failure, acute kidney injury on chronic kidney disease stage IIIA. The patient curre ntly oliguric in the setting of decreased p.o. intake and having been on renin-angiotensin system blo ckade, which would inhibit renal autoregulation and predispose to prerenal azotemia, which is the mos t likely cause of patient's acute renal failure. However, cannot rule out superimposed progression t o acute tubular necrosis, which can occur with prolonged prerenal state and especially with patient alexandro welsh dropped his blood pressure on 1 occasion yesterday as well as with underlying background of sep sis from urinary tract infection. Currently with moderate hyperkalemia, which has been treated medic ally with insulin and dextrose. However, so long as patient remains oliguric, will need not simply t o shift potassium into cells, but to remove from his body. Therefore, will give 1 dose of Kayexalate 30 grams stat. Recommend to continue IV fluids for now and monitor carefully. Will check urine krystina ro once available. Agree with obtaining urine lytes, urine sodium, urea and creatinine to help to co nfirm prerenal etiology. Obtain renal ultrasound to look for any possible hydronephrosis and obstruc tion. Obtain CT abdomen/pelvis report from [facility] (per patient's son, this was done with only p.o. contrast, but should be confirmed). 2. Hyperkalemia. As mentioned above, in the setting of oligoanuria. Until patient starts urinating , need to treat with removal via exchange resin. 3. Acute myocardial infarction. The patient showing no signs of being in cardiogenic shock, no sign s of cyanosis or impaired organ perfusion. However, he did suffer mild hypotension yesterday. Saima nue to monitor. Follow up with cardiology. At this point, if cath is not considered urgent, would h old off in the setting of acute renal failure in order to avoid further renal insults. 4. Congestive heart failure with systolic dysfunction. No signs of being in failure currently. Nee d to achieve volume repletion with IV fluids. Need to monitor respiratory status carefully and stop IV fluids if patient shows signs of getting volume overloaded and is not urinating. 5. Chronic kidney disease. Etiology appears to be nonproteinuric disease with previous urinalyses s howing no proteinuria earlier this year. Therefore, most likely etiology is likely renovascular dise ase. Renal ultrasound may help for better evaluation. Yohan Jalloh MD cc: [id number] TT: 03/14/2017 12:14:06 Confirmation # [id number] Dictation # [id number]
--- NOTE | 2017-03-14 13:11 | US ---
PROCEDURE: Ultrasound of the Kidneys HISTORY: Acute renal failure, r/o hydronephrosis COMPARISON: None available. TECHNIQUE: Sonogram of the kidneys. FINDINGS: RIGHT KIDNEY: Measures: 10.7 cm. Normal in size, contour and echogenicity. No stone, solid mass lesion or hydronephrosis visualized. LEFT KIDNEY: Measures: 11.4 cm. Normal in size, contour and echogenicity. Upper pole simple cortical cyst, 1.6 x 1.8 x 1.9 cm. No solid mass. No calculus or hydronephrosis. OTHER FINDINGS: None. IMPRESSION: 1.9 cm simple left upper pole renal cortical cyst. Otherwise unremarkable.
[2017-03-14 13:30] LABS: ALB/GLOB RATIO 1.4 (1.1-1.8); BILIRUBIN,TOTAL 1.4 mg/dL (0.2-1.3); CALCIUM 9.2 mg/dL (8.4-10.5); POTASSIUM 5.4 mmol/L (3.6-5.0); TOTAL PROTEIN 7.1 g/dL (5.8-8.3)
[2017-03-14 13:37] LABS: TROPONIN I 36.2 ng/mL
[2017-03-14] MEDS ORDERED: Digoxin 125 mcg (0.125 mg) Tab PO SCH (14:00)
--- NOTE | 2017-03-14 14:37 | CP.PCM.CON ---
History of Present Illness - History of Present Illness History of Present Illness: 82 year old male with PMH of HTN, DM, dyslipidemia, atrial fibrillation, CAD, chronic CHF, S/P pacemaker placement, history of CVA, S/P GI bleed, hypothyroidism was recently in [facility] because of complaints of burning on urination. He was started on unrecalled antibiotics at the hospital and then was discharged on Keflex, which he has only taken a dose of. A day after discharge, he started complaining of chest pain with associated shortness of breath. He denies fever or chills, no nausea or vomiting, no headache or dizziness, no abdominal pain, has some fatigue, no rhinorrhea, no sore throat, no dysphagia. He is noted to have acute renal failure as well as elevation in Troponins. Infectious Diseases consult is requeste to manage the patient's probable UTI. Review of Systems - Review of Systems All systems: reviewed and no additional remarkable complaints except (as per HPI ) Past Patient History - Infectious Disease Hx of Infectious Diseases: None - Tetanus Immunizations Tetanus Immunization: Unknown - Past Social History Smoking Status: Never Smoked - CARDIAC Hx Cardiac Disorders: Yes (cad) Hx Cardia Arrhythmia: Yes Hx Hypercholesterolemia: Yes Hx Hypertension: Yes Hx Internal Defibrillator: Yes Hx Pacemaker: Yes - PULMONARY Hx Respiratory Disorders: No - NEUROLOGICAL Hx Neurological Disorder: Yes HX Cerebrovascular Accident: Yes Hx Dizziness: Yes (vertigo) - HEENT Hx HEENT Problems: Yes Hx Glaucoma: Yes - RENAL Hx Chronic Kidney Disease: No - ENDOCRINE/METABOLIC Hx Endocrine Disorders: Yes Hx Diabetes Mellitus Type 1: Yes - HEMATOLOGICAL/ONCOLOGICAL Hx Blood Disorders: Yes Hx Anemia: Yes - INTEGUMENTARY Hx Dermatological Problems: No - MUSCULOSKELETAL/RHEUMATOLOGICAL Hx Falls: No - GASTROINTESTINAL Hx Gastrointestinal Disorders: Yes (gi bleed) Other/Comment: recent nausea and diarrhea - GENITOURINARY/GYNECOLOGICAL Hx Genitourinary Disorders: No - PSYCHIATRIC Hx Substance Use: No - SURGICAL HISTORY Hx Coronary Stent: Yes Other/Comment: cardiac stent, pacemaker - ANESTHESIA Hx Anesthesia: Yes Hx Anesthesia Reactions: No Hx Malignant Hyperthermia: No Meds Allergies/Adverse Reactions: Allergies Allergy/AdvReac Type Severity Reaction Status Date / Time No Known Allergies Allergy Verified 12/10/16 18:43 - Medications Medications: Current Medications Aspirin (Ecotrin) 81 mg PO DAILY [facility] Last Admin: 03/13/17 17:43 Dose: Not Given Atorvastatin Calcium (Lipitor) 20 mg PO DAILY [facility] Last Admin: 03/13/17 22:08 Dose: 20 mg Carvedilol (Coreg) 12.5 mg PO BID [facility] Cholecalciferol (Vitamin D) 1,000 iu PO DAILY [facility] Digoxin (Lanoxin) 0.125 mg PO 1400 [facility] Enoxaparin Sodium (Lovenox) 70 mg SC Q12H [facility] PRN Reason: Protocol Last Admin: 03/13/17 22:08 Dose: 70 mg Furosemide (Lasix) 40 mg PO DAILY [facility] Insulin Human Regular (Humulin R Med) 0 units SC ACHS [facility] PRN Reason: Protocol Last Admin: 03/13/17 22:07 Dose: 2 units Levothyroxine Sodium (Synthroid) 75 mcg PO DAILY [facility] Lorazepam (Ativan) 0.5 mg IVP Q6 PRN; Protocol PRN Reason: Anxiety Last Admin: 03/13/17 20:26 Dose: 0.5 mg Meclizine HCl (Antivert) 25 mg PO TID PRN PRN Reason: Dizziness Last Admin: 03/13/17 17:49 Dose: 25 mg Nitroglycerin (Nitrostat Sl Tab) 0.4 mg SL Q5M PRN PRN Reason: CHEST PAIN Physical Exam - Constitutional Appears: Non-toxic, No Acute Distress - Head Exam Head Exam: NORMAL INSPECTION - ENT Exam ENT Exam: Mucous Membranes Moist - Neck Exam Neck exam: Negative for: Lymphadenopathy, Meningismus - Respiratory Exam Respiratory Exam: Decreased Breath Sounds - Cardiovascular Exam Cardiovascular Exam: +S1, +S2 - GI/Abdominal Exam GI & Abdominal Exam: Soft. absent: Tenderness Results - Vital Signs Recent Vital Signs: Last Vital Signs Temp 97 F L 03/14/17 06:00 Pulse 75 03/14/17 06:00 Resp 20 03/14/17 06:00 BP 129/82 03/14/17 06:00 Pulse Ox 97 03/14/17 06:00 - Labs Result Diagrams: 03/14/17 06:15 03/14/17 12:45 Labs: Laboratory Results - last 24 hr 03/13/17 19:32 Troponin I 1.16 H* D Assessment & Plan - Assessment and Plan (Free Text) Plan: Assessment Consider lower urinary tract infection Probable acute myocardial infarction HTN DM dyslipidemia atrial fibrillation CAD chronic CHF S/P pacemaker placement history of CVA S/P GI bleed hypothyroidism Plan Started patient on Rocephin; check urine cx although it may be cleared because the patient had been on Keflex; will check PSA levels Will follow clinically and follow Cardiology plans
[2017-03-14] MEDS: cefTRIAXone 1 gm 1 GM/100 ML BAG IVPB SCH (15:01)
[2017-03-14] MEDS: Heparin25000 units/250ml 1/2NS 25,000 UNITS/250 ML BAG IV PRN (20:26)
[2017-03-14] MEDS: Enoxaparin 80 mg Syringe SC SCH (21:03)
[2017-03-14] MEDS: Sodium Chloride 0.9% 1,000 ML IV SCH (22:50)
[2017-03-15 00:52] VITALS: RESP 18
[2017-03-15] MEDS: Sodium Chloride 0.9% 1,000 ML IV SCH (02:00)
[2017-03-15 06:12] VITALS: TEMP 97.7; O2SAT 98
[2017-03-15 07:45] LABS: ADD MANUAL DIFF? NO
[2017-03-15 07:57] LABS: BASO # 0.01 K/mm3 (0.0-2.0); BASO % 0.1 % (0.0-3.0); GRAN # 11.69 (1.4-6.5); GRAN % 82.7 % (50.0-68.0); HEMATOCRIT 37.4 % (42.0-52.0); LYMPH # 1.1 (1.2-3.4); LYMPH % 7.6 % (22.0-35.0); MEAN CELL VOLUME 90.3 fL (80.0-105.0); MEAN CORPUSCULAR HEMOGLOBIN 29.5 pg (25.0-35.0); MEAN CORPUSCULAR HGB CONC 32.6 g/dl (31.0-37.0); MEAN PLATELET VOLUME 12.6 fl (7.0-11.0); MONO # 1.4 (0.1-0.6); MONO % 9.6 % (1.0-6.0); PLATELET COUNT 119 10^3/uL (120.0-450.0); RED CELL DISTRIBUTION WIDTH 15.4 % (11.5-14.5); WHITE BLOOD COUNT 14.1 10^3/ul (4.5-11.0)
[2017-03-15] MEDS: Insulin Reg-MEDIUM-Coverage SC SCH (08:01)
[2017-03-15 08:11] LABS: ALB/GLOB RATIO 1.4 (1.1-1.8); BILIRUBIN,TOTAL 1.2 mg/dL (0.2-1.3); CALCIUM 8.3 mg/dL (8.4-10.5); POTASSIUM 4.4 mmol/L (3.6-5.0); TOTAL PROTEIN 6.6 g/dL (5.8-8.3)
[2017-03-15] MEDS ORDERED: Sodium Chloride 0.9% 1,000 ML IV SCH (09:00)
[2017-03-15] MEDS: Levothyroxine 75 MCG TAB PO SCH (09:05)
[2017-03-15 09:08] VITALS: BP 119/77; PULSE 75
[2017-03-15] MEDS: Heparin25000 units/250ml 1/2NS 25,000 UNITS/250 ML BAG IV PRN (09:08)
--- NOTE | 2017-03-15 09:20 | CP.PCM.DIS ---
<Mehrdad Gold - Last Filed: 03/18/17 10:51> Provider - Provider Date of Admission: 03/14/17 14:40 Attending physician: Mehrdad Gold MD Primary care physician: Moy Hussein MD [facility] Course - Lab Results Lab Results: Most Recent Lab Values WBC 14.1 10^3/ul (4.5-11.0) H D 03/15/17 07:00 RBC 4.14 10^6/uL (3.5-6.1) 03/15/17 07:00 Hgb 12.2 gm/dL (14.0-18.0) L 03/15/17 07:00 Hct 37.4 % (42.0-52.0) L 03/15/17 07:00 MCV 90.3 fL (80.0-105.0) 03/15/17 07:00 MCH 29.5 pg (25.0-35.0) 03/15/17 07:00 MCHC 32.6 g/dl (31.0-37.0) 03/15/17 07:00 RDW 15.4 % (11.5-14.5) H 03/15/17 07:00 Plt Count 119 10^3/uL (120.0-450.0) L 03/15/17 07:00 MPV 12.6 fl (7.0-11.0) H 03/15/17 07:00 Gran % 82.7 % (50.0-68.0) H 03/15/17 07:00 Lymph % (Auto) 7.6 % (22.0-35.0) L 03/15/17 07:00 Robertson % (Auto) 9.6 % (1.0-6.0) H 03/15/17 07:00 Eos % (Auto) 0.0 % (1.5-5.0) L 03/15/17 07:00 Baso % (Auto) 0.1 % (0.0-3.0) 03/15/17 07:00 Gran # 11.69 (1.4-6.5) H 03/15/17 07:00 Lymph # 1.1 (1.2-3.4) L 03/15/17 07:00 Robertson # 1.4 (0.1-0.6) H 03/15/17 07:00 Eos # 0.0 (0.0-0.7) 03/15/17 07:00 Baso # 0.01 K/mm3 (0.0-2.0) 03/15/17 07:00 PT 12.2 Seconds (9.9-11.8) H 03/13/17 13:00 INR 1.13 (0.93-1.08) H 03/13/17 13:00 APTT 85.7 Seconds (23.7-30.8) H* 03/15/17 02:45 Sodium 132 mmol/L (132-148) 03/15/17 07:00 Potassium 4.4 mmol/L (3.6-5.0) 03/15/17 07:00 Chloride 99 mmol/L (95-110) 03/15/17 07:00 Carbon Dioxide 17 mmol/L (21-33) L 03/15/17 07:00 Anion Gap 20 (10-20) 03/15/17 07:00 BUN 67 mg/dL (7-21) H 03/15/17 07:00 Creatinine 2.7 mg/dL (0.5-1.4) H 03/15/17 07:00 Est GFR ( Amer) 28 03/15/17 07:00 Est GFR (Non-Af Amer) 23 03/15/17 07:00 POC Glucose (mg/dL) 202 mg/dL (65-110) H 03/15/17 07:26 Random Glucose 183 mg/dL (70-110) H 03/15/17 07:00 Hemoglobin A1c 7.7 % (4.2-6.5) H 03/14/17 06:15 Calcium 8.3 mg/dL (8.4-10.5) L 03/15/17 07:00 Magnesium 2.3 mg/dL (1.7-2.2) H 03/13/17 13:00 Total Bilirubin 1.2 mg/dL (0.2-1.3) 03/15/17 07:00 AST 1194 U/L (15-59) H 03/15/17 07:00 ALT 886 U/L (7-56) H 03/15/17 07:00 Alkaline Phosphatase 162 U/L (38-133) H 03/15/17 07:00 Lactate Dehydrogenase 519 U/L (333-699) 03/13/17 13:00 Total Creatine Kinase 81 U/L (35-230) 03/13/17 13:00 Troponin I 36.20 ng/mL H* D 03/14/17 12:45 NT-Pro-B Natriuret Pep 2620 pg/mL (0-450) H 03/13/17 13:00 Total Protein 6.6 g/dL (5.8-8.3) 03/15/17 07:00 Albumin 3.9 g/dL (3.0-4.8) 03/15/17 07:00 Globulin 2.8 gm/dL 03/15/17 07:00 Albumin/Globulin Ratio 1.4 (1.1-1.8) 03/15/17 07:00 Procalcitonin 0.34 NG/ML (0.19-0.49) 03/14/17 06:15 TSH 3rd Generation 4.81 mIU/mL (0.46-4.68) H 03/13/17 13:00 Urine Color Yellow (YELLOW) 03/13/17 13:21 Urine Appearance Sl cloudy (CLEAR) 03/13/17 13:21 Urine pH 6.0 (4.7-8.0) 03/13/17 13:21 Ur Specific [place] >= 1.030 (1.005-1.035) 03/13/17 13:21 Urine Protein >=300 mg/dL (<30 mg/dL) H 03/13/17 13:21 Urine Glucose (UA) 500 mg/dL (NEGATIVE) H 03/13/17 13:21 Urine Ketones Negative mg/dL (NEGATIVE) 03/13/17 13:21 Urine Blood Trace-intact (NEGATIVE) H 03/13/17 13:21 Urine Nitrate Negative (NEGATIVE) 03/13/17 13:21 Urine Bilirubin Negative (NEGATIVE) 03/13/17 13:21 Urine Urobilinogen 1.0 E.U./dL (<1 E.U./dL) H 03/13/17 13:21 Ur Leukocyte Esterase Negative Fartun/uL (NEGATIVE) 03/13/17 13:21 Urine RBC 0 - 2 /hpf (0-2) 03/13/17 13:21 Urine WBC 2 - 5 /hpf (0-6) 03/13/17 13:21 Ur Epithelial Cells 1 - 3 /hpf (0-5) 03/13/17 13:21 Urine Bacteria Mod (NEG) 03/13/17 13:21 Ur Random Creatinine 135 mg/dL 03/14/17 19:00 Ur Random Sodium 13 meq/L 03/14/17 19:00 Ur Random Potassium 91.4 meq/L 03/14/17 19:00 Ur Random Urea Nitrogn 363 mg/dL 03/14/17 19:00 Digoxin 0.6 ng/mL (0.8-2.0) L 03/13/17 13:00 Blood Type O POSITIVE 03/13/17 13:40 Antibody Screen Negative 03/13/17 13:40 BBK History Checked Patient has bt 03/13/17 13:40 Discharge Plan - Follow Up Plan Condition: FAIR Disposition: Trans to Other Acute Care Hosp Instructions: Heart Failure (DC), Heart Failure (GEN), Chest Pain (ED), Chest Pain (DC), Chest Pain (GEN), Pacemaker (DC), Pacemaker (GEN), Pulmonary Edema ( DC), Pulmonary Edema (GEN), Acute Kidney Injury (DC), Ascites (DC), Ascites (GEN ) Additional Instructions: Patient is medically stable for discharge to [facility] for higher level of care. Thank you for allowing us to take part in your care. Referrals: Moy Hussein MD [Primary Care Provider] - Ramakrishna Weiner MD [Staff Provider] - Attending/Attestation - Attestation I have personally seen and examined this patient.: Yes I have fully participated in the care of the patient.: Yes I have reviewed all pertinent clinical information, including history, physical exam and plan: Yes Notes (Text): I have seen and examined patient at bedside. 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 EKG showed paced rhythm. Troponins are elevated. Tread Cutter on board. He was started on heparin and stopped lovenox due to renal insufficiency. CXR negative. Echo showed EF of 27%. Also has worsening of acute renal failure currently oliguric in the setting of decrease PO intake and was on valsartan and lasix which was stopped. Continue IVF for now. Gave IV lasix one time dose yesterday. Will carefully monitor patient clinically for any fluid overload. For hyperkalemia, insulin and kayexelate was given which resulted in diarrhea. Renal ultrasound showed cortical cyst. Digoxin is on hold for now. Patient also has partially treated UTI. Will continue rocephin as per ID. Also has transaminitis which is also most likely due to hypoperfusion. Will like to obtain GI consult however patient is being transferred to [facility] for higher level of care. Upon discharge patient will follow up with Dr Hussein. Dr Mehrdad Gold <Carlitos Angeles - Last Filed: 03/18/17 16:51> Provider - Provider Date of Admission: 03/14/17 14:40 Attending physician: Mehrdad Gold MD Primary care physician: Moy Hussein MD Time Spent in preparation of Discharge (in minutes): 35 Diagnosis - Discharge Diagnosis (1) Acute kidney failure Status: Acute (2) Chest pain Status: Acute (3) Congestive heart failure (CHF) Status: Acute Hospital Course - Lab Results Lab Results: Most Recent Lab Values WBC 14.1 10^3/ul (4.5-11.0) H D 03/15/17 07:00 RBC 4.14 10^6/uL (3.5-6.1) 03/15/17 07:00 Hgb 12.2 gm/dL (14.0-18.0) L 03/15/17 07:00 Hct 37.4 % (42.0-52.0) L 03/15/17 07:00 MCV 90.3 fL (80.0-105.0) 03/15/17 07:00 MCH 29.5 pg (25.0-35.0) 03/15/17 07:00 MCHC 32.6 g/dl (31.0-37.0) 03/15/17 07:00 RDW 15.4 % (11.5-14.5) H 03/15/17 07:00 Plt Count 119 10^3/uL (120.0-450.0) L 03/15/17 07:00 MPV 12.6 fl (7.0-11.0) H 03/15/17 07:00 Gran % 82.7 % (50.0-68.0) H 03/15/17 07:00 Lymph % (Auto) 7.6 % (22.0-35.0) L 03/15/17 07:00 Robertson % (Auto) 9.6 % (1.0-6.0) H 03/15/17 07:00 Eos % (Auto) 0.0 % (1.5-5.0) L 03/15/17 07:00 Baso % (Auto) 0.1 % (0.0-3.0) 03/15/17 07:00 Gran # 11.69 (1.4-6.5) H 03/15/17 07:00 Lymph # 1.1 (1.2-3.4) L 03/15/17 07:00 Robertson # 1.4 (0.1-0.6) H 03/15/17 07:00 Eos # 0.0 (0.0-0.7) 03/15/17 07:00 Baso # 0.01 K/mm3 (0.0-2.0) 03/15/17 07:00 PT 12.2 Seconds (9.9-11.8) H 03/13/17 13:00 INR 1.13 (0.93-1.08) H 03/13/17 13:00 APTT 85.7 Seconds (23.7-30.8) H* 03/15/17 02:45 Sodium 132 mmol/L (132-148) 03/15/17 07:00 Potassium 4.4 mmol/L (3.6-5.0) 03/15/17 07:00 Chloride 99 mmol/L (95-110) 03/15/17 07:00 Carbon Dioxide 17 mmol/L (21-33) L 03/15/17 07:00 Anion Gap 20 (10-20) 03/15/17 07:00 BUN 67 mg/dL (7-21) H 03/15/17 07:00 Creatinine 2.7 mg/dL (0.5-1.4) H 03/15/17 07:00 Est GFR ( Amer) 28 03/15/17 07:00 Est GFR (Non-Af Amer) 23 /24/17 07:00 POC Glucose (mg/dL) 189 mg/dL (65-110) H 03/14/17 21:06 Random Glucose 183 mg/dL (70-110) H 03/15/17 07:00 Hemoglobin A1c 7.7 % (4.2-6.5) H 03/14/17 06:15 Calcium 8.3 mg/dL (8.4-10.5) L 03/15/17 07:00 Magnesium 2.3 mg/dL (1.7-2.2) H 03/13/17 13:00 Total Bilirubin 1.2 mg/dL (0.2-1.3) 03/15/17 07:00 AST 1194 U/L (15-59) H 03/15/17 07:00 ALT 886 U/L (7-56) H 03/15/17 07:00 Alkaline Phosphatase 162 U/L (38-133) H 03/15/17 07:00 Lactate Dehydrogenase 519 U/L (333-699) 03/13/17 13:00 Total Creatine Kinase 81 U/L (35-230) 03/13/17 13:00 Troponin I 36.20 ng/mL H* D 03/14/17 12:45 NT-Pro-B Natriuret Pep 2620 pg/mL (0-450) H 03/13/17 13:00 Total Protein 6.6 g/dL (5.8-8.3) 03/15/17 07:00 Albumin 3.9 g/dL (3.0-4.8) 03/15/17 07:00 Globulin 2.8 gm/dL 03/15/17 07:00 Albumin/Globulin Ratio 1.4 (1.1-1.8) 03/15/17 07:00 Procalcitonin 0.34 NG/ML (0.19-0.49) 03/14/17 06:15 TSH 3rd Generation 4.81 mIU/mL (0.46-4.68) H 03/13/17 13:00 Urine Color Yellow (YELLOW) 03/13/17 13:21 Urine Appearance Sl cloudy (CLEAR) 03/13/17 13:21 Urine pH 6.0 (4.7-8.0) 03/13/17 13:21 Ur Specific [place] >= 1.030 (1.005-1.035) 03/13/17 13:21 Urine Protein >=300 mg/dL (<30 mg/dL) H 03/13/17 13:21 Urine Glucose (UA) 500 mg/dL (NEGATIVE) H 03/13/17 13:21 Urine Ketones Negative mg/dL (NEGATIVE) 03/13/17 13:21 Urine Blood Trace-intact (NEGATIVE) H 03/13/17 13:21 Urine Nitrate Negative (NEGATIVE) 03/13/17 13:21 Urine Bilirubin Negative (NEGATIVE) 03/13/17 13:21 Urine Urobilinogen 1.0 E.U./dL (<1 E.U./dL) H 03/13/17 13:21 Ur Leukocyte Esterase Negative Fartun/uL (NEGATIVE) 03/13/17 13:21 Urine RBC 0 - 2 /hpf (0-2) 03/13/17 13:21 Urine WBC 2 - 5 /hpf (0-6) 03/13/17 13:21 Ur Epithelial Cells 1 - 3 /hpf (0-5) 03/13/17 13:21 Urine Bacteria Mod (NEG) 03/13/17 13:21 Ur Random Creatinine 135 mg/dL 03/14/17 19:00 Ur Random Sodium 13 meq/L 03/14/17 19:00 Ur Random Potassium 91.4 meq/L 03/14/17 19:00 Ur Random Urea Nitrogn 363 mg/dL 03/14/17 19:00 Digoxin 0.6 ng/mL (0.8-2.0) L 03/13/17 13:00 Blood Type O POSITIVE 03/13/17 13:40 Antibody Screen Negative 03/13/17 13:40 BBK History Checked Patient has bt 03/13/17 13:40 - Hospital Course Hospital Course: A 82 year old male, whose past medical history includes diabetes, hypertension, hyperlipidemia, atrial fibrillation, pacemaker, CHF on lasix, CVA, GI bleeds and hypothyroidism, presented to the emergency department complaining of constant left and right sided, non-radiating 9/10 chest pain since this morning. Prior to to the chest pain, the pt. took Keflex for a UTI that had been diagnosed the previous day at [place]. Cardiology was consulted. EKG showed electronic ventricular pacemaker, initial troponin was negative, subsequent troponins were positive, and chest xray showed moderate cardiomegaly. ECHO showed EF of 27%. Pt. also looked dehydrated and likely had prerenal azotemia. Renal was consulted. Pt. was given fluids, lasix and Kaexylate for hyperkalemia. Pt. was transferred to another hospital for a higher level of care. Pt. was asymptomatic and had improved chest pain on transfer. This is a brief account of his stay. For more information, please see his chart. - Date & Time of H&P Date of H&P: 03/15/17 Time of H&P: 07:00 Discharge Exam - Head Exam Head Exam: ATRAUMATIC, NORMOCEPHALIC - Eye Exam Eye Exam: EOMI, Normal appearance - ENT Exam ENT Exam: Mucous Membranes Dry - Respiratory Exam Respiratory Exam: Clear to PA & Lateral, NORMAL BREATHING PATTERN, UNREMARKABLE. absent: Rales, Rhonchi - Cardiovascular Exam Cardiovascular Exam: REGULAR RHYTHM. absent: JVD - GI/Abdominal Exam GI & Abdominal Exam: Normal Bowel Sounds, Soft, Unremarkable. absent: Tenderness - Back Exam Back exam: absent: CVA tenderness (L), CVA tenderness (R), paraspinal tenderness , rash noted - Neurological Exam Neurological exam: Alert, CN II-XII Intact, Oriented x3 - Psychiatric Exam Psychiatric exam: Normal Affect, Normal Mood - Skin Skin Exam: Dry, Intact, Pallor, Warm
[2017-03-15] MEDS: cefTRIAXone 1 gm 1 GM/100 ML BAG IVPB SCH (09:26)
--- NOTE | 2017-03-15 09:39 | RAD ---
HISTORY: CHF COMPARISON: 03/13/2017 FINDINGS: LUNGS: No active pulmonary disease. PLEURA: No significant pleural effusion identified, no pneumothorax apparent. CARDIOVASCULAR: Moderate cardiomegaly. Single lead pacemaker OSSEOUS STRUCTURES: No significant abnormalities. VISUALIZED UPPER ABDOMEN: Normal. OTHER FINDINGS: None. IMPRESSION: Moderate cardiomegaly. Single lead pacemaker
--- NOTE | 2017-03-15 18:55 | CP.PCM.PN ---
Subjective - Date & Time of Evaluation Date of Evaluation: 03/15/17 Time of Evaluation: 09:15 - Subjective Subjective: Patient seen just before being transferred to [facility] reports having diarrhea last night after getting kayexelate; otherwise urinated 5-6 times but only small amounts each time; denies shortness of breath; Objective - Vital Signs/Intake and Output Vital Signs (last 24 hours): Temp Pulse Resp BP Pulse Ox 97.7 F 75 18 119/77 98 03/15/17 06:00 03/15/17 09:05 03/15/17 06:00 03/15/17 09:05 03/15/17 06:00 Intake and Output: 03/15/17 03/15/17 06:59 18:59 Intake Total 1744 50 Output Total 175 Balance 1569 50 - Labs Labs: 03/15/17 07:00 03/15/17 07:00 PT 12.2 Seconds (9.9-11.8) H 03/13/17 13:00 INR 1.13 (0.93-1.08) H 03/13/17 13:00 APTT 85.7 Seconds (23.7-30.8) H* 03/15/17 02:45 - Constitutional Appears: Well, No Acute Distress - Head Exam Head Exam: NORMAL INSPECTION - Eye Exam Eye Exam: Normal appearance. absent: Scleral icterus - ENT Exam ENT Exam: Mucous Membranes Moist - Respiratory Exam Respiratory Exam: NORMAL BREATHING PATTERN Additional comments: minimal rhales present; - Cardiovascular Exam Cardiovascular Exam: REGULAR RHYTHM, +S1, +S2 - GI/Abdominal Exam GI & Abdominal Exam: Soft. absent: Distended - Extremities Exam Additional comments: Minimal leg edema; - Neurological Exam Neurological Exam: Alert, Awake - Psychiatric Exam Psychiatric exam: Normal Affect, Normal Mood - Skin Skin Exam: Warm. 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, however, may soon be needed; Status: Acute (2) NSTEMI (non-ST elevated myocardial infarction) Assessment & Plan: Markedly elevated troponin levels; being transferred for possible higher level of care; Status: Acute (3) Hyperkalemia Assessment & Plan: Treated with kayexalate x 2 yesterday; improved; may need [employer]PERATIONS AND MAINTENANCE SUPERVISOR as noted above; Status: Acute (4) CKD (chronic kidney disease) Assessment & Plan: Non-proteinuric kidney disease per previous UA this year; no renal asymmetry on US but may still have underlying renovascular disease that makes his kidneys particularly susceptable to hemodynamic changes; Status: Acute (5) Congestive heart failure (CHF) Assessment & Plan: With systolic dysfunction; lungs relatively clear and so IVF continued yesterday although with no improvement in SALUD as noted above; Status: Acute
--- NOTE | 2017-03-18 08:23 | CARD ---
APPROVED REPORT EXAM: Two-dimensional and M-mode echocardiogram with Doppler and color Doppler. Other Information Quality : FairRhythm : INDICATION Dyspnea , ACUTE FL 2D DIMENSIONS Left Atrium (2D)4.5 (1.6-4.0cm)IVSd1.2 (0.7-1.1cm) LVDd5.7 (3.9-5.9cm)PWd1.4 (0.7-1.1cm) LVDs5.1 (2.5-4.0cm)LVEF (%)25.0 (>50%) M-Mode DIMENSIONS Aortic Root3.00 (2.2-3.7cm)Aortic Cusp Exc.1.70 (1.5-2.0cm) Aortic Valve AoV Peak Vunolllo07.2cm/s Mitral Valve E/A ratio0.0 TDI E/Lateral E'0.0E/Medial E'0.0 Tricuspid Valve TR Peak [id number] [id number] Peak Gr.2mmHg [id number] LEFT VENTRICLE The left ventricle is normal size. There is normal left ventricular wall thickness. Left ventricle systolic function is severely impaired. The Ejection Fraction is 20-25%. There is severe global hypokinesis. The septum is dykinetic. RIGHT VENTRICLE The right ventricle is normal size. ATRIA The left atrium is mildly dilated. The right atrium size is normal. AORTIC VALVE The aortic valve is normal in structure. There is trace aortic regurgitation. MITRAL VALVE The mitral valve is normal in structure. Mitral regurgitation is mild. TRICUSPID VALVE The tricuspid valve is normal in structure. There is trace tricuspid regurgitation. GREAT VESSELS The aortic root is normal in size. PERICARDIAL EFFUSION There is no pericardial effusion. <Conclusion> Limited study. The left ventricle is normal size. There is normal left ventricular wall thickness. Left ventricle systolic function is severely impaired. The Ejection Fraction is 20-25%. There is severe global hypokinesis. The septum is dykinetic. Mitral regurgitation is mild.
== END 2017-03-15 09:58 | disposition short-term general hospital (02) | DRG 280 ==
LOC: ED 12:55 → ERH 14:16 → 2RSO 16:45 → OBSVTOIN 03-14 14:40
PROVIDERS: ADMIT Internal Medicine; ATTEND Hospitalist
DX: I21.4 Non-ST elevation (NSTEMI) myocardial infarction (principal); N17.0 Acute kidney failure with tubular necrosis; I13.0 Hypertensive heart and chronic kidney disease with heart failure and stage 1 through stage 4 chronic kidney disease, or unspecified chronic kidney disease; I50.22 Chronic systolic (congestive) heart failure; N39.0 Urinary tract infection, site not specified; E10.22 Type 1 diabetes mellitus with diabetic chronic kidney disease; N18.3 Chronic kidney disease, stage 3 (moderate); E87.5 Hyperkalemia; I48.2 Chronic atrial fibrillation; E86.0 Dehydration; E03.9 Hypothyroidism, unspecified; E78.5 Hyperlipidemia, unspecified; Z96.41 Presence of insulin pump (external) (internal); R42 Dizziness and giddiness; Z95.5 Presence of coronary angioplasty implant and graft; Z86.73 Personal history of transient ischemic attack (TIA), and cerebral infarction without residual deficits; Z95.0 Presence of cardiac pacemaker; Z79.82 Long term (current) use of aspirin

== ENCOUNTER 2017-08-14 03:19 | Inpatient (IN) | payer MEDICARE, BC ==
[2017-08-14] MEDS ORDERED: Morphine 2 mg/ml ISec IVP STA (03:58)
--- NOTE | 2017-08-14 03:59 | ED PDOC ---
Arrival/HPI - General Chief Complaint: Abdominal Pain Time Seen by Provider: 08/14/17 03:25 Historian: Patient - History of Present Illness Narrative History of Present Illness (Text): 08/14/17 03:30 Chase Foley is an 82 year old male, whose past medical history includes CHF, myocardial infarction, defibrillator, coronary artery disease, prior "TIAs", and diabetes, who presents to the emergency department complaining of upper abdominal pain and chest pain for 2 days. Patient states that his pain starts from his abdomen and radiates up into his chest. Patient notes to experiences associated diarrhea, slight shortness of breath, and lack of appetite. Patient denies any fever, chills, urinary symptoms, back pain, neck pain, headache, dizziness, trauma/injury, suicidal/homicidal ideation or any other complaints. PMD: Dr. Hussein Time/Duration: < week Symptom Onset: Gradual Symptom Course: Unchanged Activities at Onset: Rest Context: Home Past Medical History - Provider Review Nursing Documentation Reviewed: Yes - Infectious Disease Hx of Infectious Diseases: None - Tetanus Immunization Tetanus Immunization: Unknown - Cardiac Hx Cardiac Disorders: Yes (cad) Hx Cardiac Arrhythmia: Yes Hx Hypertension: Yes Hx Internal Defibrillator: Yes Hx Pacemaker: Yes (Left Chest) - Pulmonary Hx Respiratory Disorders: No - Neurological Hx Neurological Disorder: Yes HX Cerebrovascular Accident: Yes Hx Dizziness: Yes (vertigo) - HEENT Hx HEENT Disorder: Yes Hx Glaucoma: Yes - Renal Hx Renal Disorder: No - Endocrine/Metabolic Hx Endocrine Disorders: Yes Hx Diabetes Mellitus Type 1: Yes - Hematological/Oncological Hx Blood Disorders: Yes Hx Anemia: Yes - Integumentary Hx Dermatological Disorder: No - Musculoskeletal/Rheumatological Hx Falls: No - Gastrointestinal Hx Gastrointestinal Disorders: Yes (gi bleed) Other/Comment: recent nausea and diarrhea - Genitourinary/Gynecological Hx Genitourinary Disorders: No - Psychiatric Hx Psychophysiologic Disorder: No Hx Anxiety: No Hx Bipolar Disorder: No Hx Depression: No Hx Emotional Abuse: No Hx Hallucinations: No Hx Panic Disorder: No Hx Post Traumatic Stress Disorder: No Hx Psychosis: No Hx Physical Abuse: No Hx Schizophrenia: No Hx Sexual Abuse: No Hx Substance Use: No - Surgical History Hx Coronary Stent: Yes Other/Comment: cardiac stent, pacemaker - Anesthesia Hx Anesthesia: Yes Hx Anesthesia Reactions: No Hx Malignant Hyperthermia: No - Suicidal Assessment Feels Threatened In Home Enviroment: No Family/Social History - Physician Review Nursing Documentation Reviewed: Yes Family/Social History: No Known Family HX Smoking Status: Never Smoked Hx Alcohol Use: No Hx Substance Use: No Hx Substance Use Treatment: No Allergies/Home Meds Allergies/Adverse Reactions: Allergies No Known Allergies Allergy (Verified 08/14/17 03:23) Home Medications: Home Meds Medication Instructions Recorded Confirmed Carvedilol [Coreg] 6.5 mg PO BID 05/17/15 08/14/17 Levothyroxine Sodium [Synthroid] 0.075 mg PO DAILY 05/17/15 08/14/17 Nitroglycerin [Nitrostat] 0.4 mg SL PRN PRN 05/17/15 08/14/17 Aspirin [Adult Low Dose Aspirin EC] 81 mg PO DAILY 12/10/16 08/14/17 Atorvastatin [Lipitor] 20 mg PO DAILY 06/15/17 08/14/17 Clopidogrel [Plavix] 75 mg PO DAILY 06/15/17 08/14/17 Digoxin [Lanoxin] 0.125 mg PO DAILY 06/15/17 08/14/17 Pantoprazole [Protonix EC Tab] 40 mg PO DAILY 06/15/17 08/14/17 Spironolactone [Aldactone] 25 mg PO DAILY 06/15/17 08/14/17 Review of Systems - Physician Review All systems were reviewed & negative as marked: Yes - Review of Systems Constitutional: absent: Fevers, Night Sweats Eyes: absent: Vision Changes ENT: absent: Hearing Changes Respiratory: absent: SOB, Cough Cardiovascular: Chest Pain Gastrointestinal: Abdominal Pain, Diarrhea, Appetite Changes Genitourinary Male: absent: Urinary Output Changes Musculoskeletal: absent: Arthralgias, Back Pain Skin: absent: Rash, Pruritis Neurological: absent: Headache, Dizziness Endocrine: absent: Diaphoresis Hemo/Lymphatic: absent: Adenopathy Psychiatric: absent: Depression Physical Exam Vital Signs Reviewed: Yes Vital Signs Temp Pulse Resp BP Pulse Ox 08/14/17 05:51 98.1 F 77 16 128/67 99 08/14/17 03:46 98.3 F 78 16 133/73 99 08/14/17 03:23 98.6 F 79 19 133/73 99 Temperature: Afebrile Blood Pressure: Normal Pulse: Regular Respiratory Rate: Normal Appearance: Positive for: Well-Appearing, Non-Toxic, Comfortable Pain Distress: None Mental Status: Positive for: Alert and Oriented X 3 - Systems Exam Head: Present: Atraumatic, Normocephalic Pupils: Present: PERRL Extroacular Muscles: Present: EOMI Conjunctiva: Present: Normal Mouth: Present: Moist Mucous Membranes Neck: Present: Normal Range of Motion Respiratory/Chest: Present: Clear to Auscultation, Good Air Exchange. No: Respiratory Distress, Accessory Muscle Use Cardiovascular: Present: Regular Rate and Rhythm, Normal S1, S2. No: Murmurs Abdomen: Present: Normal Bowel Sounds. No: Tenderness, Distention, Peritoneal Signs Back: Present: Normal Inspection Upper Extremity: Present: Normal Inspection. No: Cyanosis, Edema Lower Extremity: Present: Normal Inspection. No: Edema Neurological: Present: GCS=15, CN II-XII Intact, Speech Normal Skin: Present: Warm, Dry, Normal Color. No: Rashes Psychiatric: Present: Alert, Oriented x 3, Normal Insight, Normal Concentration Medical Decision Making ED Course and Treatment: 08/14/17 03:59 Impression: 82 year old male complaining of upper abdominal pain and chest pain with associated diarrhea and lack of appetite for 2 days. Differential Diagnosis included but are not limited to: Plan: -- EKG -- Chest X-ray -- Chest, Abdomen, and Pelvis CT -- Labs -- Zofran, Morphine, and IV fluids -- Reassess and disposition Prior Visits: Notes and results from previous visits were reviewed. Patient last seen in the ED on 06/15/17 for dizziness associated with what the family has perceived as episodes of disorientation where the patient appears intermittently confused for 3-4 days. Patient was admitted to Telemetry for further evaluation. Progress Notes: EKG: Ordered, reviewed, and independently interpreted the EKG. Rate : 78 BPM Rhythm : Demand Pacemaker, A Fib Interpretation : Inferior infarct. ST-T changes, laterally. Comparison : No change from previous on 05/201708/14/17 05:53 Case discussed with medical scribe and Dr. Gold, who accepts patient to hospitalist service. - Lab Interpretations Lab Results: 08/14/17 04:15 08/14/17 04:15 Lab Results 08/14/17 04:15: Sodium 139, Potassium 4.3, Chloride 102, Carbon Dioxide 28, Anion Gap 13, BUN 27 H, Creatinine 1.2, Est GFR ( Amer) > 60, Est GFR ( Non-Af Amer) 58, Random Glucose 88, Calcium 9.4, Total Bilirubin 1.2, AST 41, ALT 38, Alkaline Phosphatase 170 H, Lactate Dehydrogenase 600, Total Creatine Kinase 77, Troponin I 0.10, Total Protein 7.1, Albumin 4.1, Globulin 3.0, Albumin/Globulin Ratio 1.4, Lipase 71 08/14/17 04:15: WBC 9.7 D, RBC 3.80, Hgb 11.1 L, Hct 34.3 L, MCV 90.3, MCH 29.2 , MCHC 32.4, RDW 16.2 H, Plt Count 131, MPV 10.4 08/14/17 04:15: PT 15.8 H, INR 1.43 H, APTT 34.1 I have reviewed the lab results: Yes - RAD Interpretation Radiology Orders: 08/14/17 03:56 CHEST PORTABLE [RAD] Stat 08/14/17 03:58 CHEST,ABDOMEN, PELVIS W/O CONT [CT] Stat - Medication Orders Current Medication Orders: Aspirin (Ecotrin) 81 mg PO DAILY [facility] Atorvastatin Calcium (Lipitor) 20 mg PO DAILY [facility] Carvedilol (Coreg) 6.25 mg PO BID [facility] Last Admin: 08/14/17 18:11 Dose: 6.25 mg MAR Pulse and Blood Pressure Document 08/14/17 18:11 VALENTE (Rec: 08/14/17 18:11 VALNETE [id number]) Pulse Pulse Rate (60-90) 72 Blood Pressure Blood Pressure (100/60-150/90) 131/73 Cholecalciferol (Vitamin D) 1,000 iu PO DAILY [facility] Clopidogrel Bisulfate (Plavix) 75 mg PO DAILY [facility] Digoxin (Lanoxin) 0.125 mg PO DAILY [facility] Furosemide (Lasix) 40 mg PO DAILY [facility] Heparin Sodium (Porcine) (Heparin) 5,000 units SC Q12 MUKUL PRN Reason: Protocol Levothyroxine Sodium (Synthroid) 75 mcg PO DAILY [facility] Ondansetron HCl (Zofran Inj) 4 mg IVP Q4H PRN PRN Reason: Nausea/Vomiting Pantoprazole Sodium (Protonix Ec Tab) 40 mg PO DAILY [facility] Spironolactone (Aldactone) 25 mg PO DAILY [facility] Last Admin: 08/14/17 18:11 Dose: 25 mg Discontinued Medications Sodium Chloride (Sodium Chloride 0.9%) 1,000 mls @ 100 mls/hr IV .Q10H [facility] Last Admin: 08/14/17 04:21 Dose: 100 mls/hr eMAR Start Stop Document 08/14/17 04:21 SC (Rec: 08/14/17 04:22 SC [id number]) Intravenous Solution Start Date 08/14/17 Start Time 04:22 Sodium Chloride (Sodium Chloride 0.45%) 1,000 mls @ 125 mls/hr IV .Q8H [facility] Last Admin: 08/14/17 17:48 Dose: 125 mls/hr eMAR Start Stop Document 08/14/17 17:48 VALENTE (Rec: 08/14/17 17:49 VALENTE [id number]) Intravenous Solution Start Date 08/14/17 Start Time 17:49 Morphine Sulfate (Morphine) 2 mg IVP STAT STA Stop: 08/14/17 03:59 Last Admin: 08/14/17 04:21 Dose: 2 mg MAR Pain Assessment Document 08/14/17 04:21 SC (Rec: 08/14/17 04:21 SC [id number]) Pain Reassessment Is this a pain reassessment? No Sleep Is patient sleeping during reassessment? No Presence of Pain Presence of Pain Yes Pain Scale Used Pain Scale Used Numeric Description Intensity of Pain at present 5 IVP Administration Document 08/14/17 04:21 SC (Rec: 08/14/17 04:21 SC [id number]) Charges for Administration # of IVP Administrations 1 Re-Assess: ELLE Pain Assessment Document 08/14/17 05:21 SC (Rec: 08/14/17 06:26 SC [id number]) Pain Reassessment Is this a pain reassessment? Yes Sleep Is patient sleeping during reassessment? No Presence of Pain Presence of Pain No Ondansetron HCl (Zofran Inj) 4 mg IVP ONCE ONE Stop: 08/14/17 03:59 Last Admin: 08/14/17 04:21 Dose: 4 mg IVP Administration Document 08/14/17 04:21 SC (Rec: 08/14/17 04:21 SC [id number]) Charges for Administration # of IVP Administrations 1 - Scribe Statement The provider has reviewed the documentation as recorded by the Scribe Guillermina Raul Provider Scribe Attestation: All medical record entries made by the Shannon were at my direction and personally dictated by me. I have reviewed the chart and agree that the record accurately reflects my personal performance of the history, physical exam, medical decision making, and the department course for this patient. I have also personally directed, reviewed, and agree with the discharge instructions and disposition. Disposition/Present on Arrival - Present on Arrival Any Indicators Present on Arrival: No History of DVT/PE: No History of Uncontrolled Diabetes: Yes Urinary Catheter: No History of Decub. Ulcer: No History Surgical Site Infection Following: None - Disposition Have Diagnosis and Disposition been Completed?: Yes Diagnosis: Abdominal pain, Chest pain, Cholelithiasis Disposition: HOSPITALIZED Disposition Time: 05:45 Patient Plan: Observation Patient Problems: Current Active Problems Problem Status Onset Abdominal pain Acute Chest pain Acute Cholelithiasis Acute Condition: STABLE
[2017-08-14] MEDS ORDERED: Sodium Chloride 0.9% 1,000 ML IV SCH (04:00)
[2017-08-14 04:36] LABS: INR 1.43 (0.93-1.08); PARTIAL THROMBOPLASTIN TIME 34.1 Seconds (25.1-36.5)
[2017-08-14 04:37] LABS: ALB/GLOB RATIO 1.4 (1.1-1.8); ALKALINE PHOSPHATASE 170 U/L (38-126); ALT/SGPT 38 U/L (7-56); AST/SGOT 41 U/L (17-59); BILIRUBIN,TOTAL 1.2 mg/dL (0.2-1.3); BLOOD UREA NITROGEN 27 mg/dL (7-21); CALCIUM 9.4 mg/dL (8.4-10.5); CARBON DIOXIDE 28 mmol/L (21-33); CHLORIDE 102 mmol/L (98-107); GFR AFRICAN-AMERICAN > 60; GLUCOSE,RANDOM 88 mg/dL (70-110); HEMATOCRIT 34.3 % (42.0-52.0); LIPASE 71 U/L (23-300); MEAN CELL VOLUME 90.3 fl (80.0-105.0); MEAN CORPUSCULAR HEMOGLOBIN 29.2 pg (25.0-35.0); MEAN CORPUSCULAR HGB CONC 32.4 g/dl (31.0-37.0); MEAN PLATELET VOLUME 10.4 fl (7.0-11.0); POTASSIUM 4.3 mmol/L (3.6-5.0); RED CELL DISTRIBUTION WIDTH 16.2 % (11.5-14.5); SODIUM 139 mmol/L (132-148); TOTAL PROTEIN 7.1 g/dL (5.8-8.3); WHITE BLOOD COUNT 9.7 10^3/ul (4.5-11.0)
--- NOTE | 2017-08-14 05:47 | CP.PCM.HP ---
History of Present Illness - History of Present Illness History of Present Illness: This is a 82 year old male with a past medical history of CHF, [place], defibrillator , CAD, TIA's, and Type II Diabetes Mellitus who reports diffuse abdominal pain and a decrease in appetite for one day. The patient states that it started while at rest and and denies any association with food intake. The patient describes the pain as sharp in nature and states that the abdominal pain sometimes radiates the epigastrium area. The patient also reports one episode of non-bloody diarrhea in conjunction with the abdominal pain. The patient denies any shortness of breath, chest pain, sick contacts, sore throat, fevers, chills, or any other complaints. PMD: Cardiology: Dr. Hi Past medical history: See HPI Medications: Nitroglycerin, Novolog, Spironolactone, Synthroid, Senna, Furosemide, Digoxin, Aspirin, Lipitor, Carvedilol, Plavix Past surgical history: Denies Allergies: NKDA Social hx: Denies smoking or illicit drug use. Occasionally drinks (less than once a month). Present on Admission - Present on Admission Any Indicators Present on Admission: No Review of Systems - Constitutional Constitutional: As Per HPI - EENT Eyes: As Per HPI Ears: As Per HPI Nose/Mouth/Throat: As Per HPI - Cardiovascular Cardiovascular: As Per HPI - Respiratory Respiratory: As Per HPI - Gastrointestinal Gastrointestinal: As Per HPI - Genitourinary Genitourinary: As Per HPI - Reproductive: Male Reproductive:Male: As Per HPI - Musculoskeletal Musculoskeletal: As Per HPI - Integumentary Integumentary: As Per HPI - Neurological Neurological: As Per HPI - Psychiatric Psychiatric: As Per HPI - Endocrine Endocrine: As Per HPI - Hematologic/Lymphatic Hematologic: As Per HPI Past Patient History - Infectious Disease Hx of Infectious Diseases: None - Tetanus Immunizations Tetanus Immunization: Unknown - Past Social History Smoking Status: Never Smoked - CARDIAC Hx Cardiac Disorders: Yes (cad) Hx Cardia Arrhythmia: Yes Hx Hypertension: Yes Hx Internal Defibrillator: Yes Hx Pacemaker: Yes (Left Chest) - PULMONARY Hx Respiratory Disorders: No - NEUROLOGICAL Hx Neurological Disorder: Yes HX Cerebrovascular Accident: Yes Hx Dizziness: Yes (vertigo) - HEENT Hx HEENT Problems: Yes Hx Glaucoma: Yes - RENAL Hx Chronic Kidney Disease: No - ENDOCRINE/METABOLIC Hx Endocrine Disorders: Yes Hx Diabetes Mellitus Type 1: Yes - HEMATOLOGICAL/ONCOLOGICAL Hx Blood Disorders: Yes Hx Anemia: Yes - INTEGUMENTARY Hx Dermatological Problems: No - MUSCULOSKELETAL/RHEUMATOLOGICAL Hx Falls: No - GASTROINTESTINAL Hx Gastrointestinal Disorders: Yes (gi bleed) Other/Comment: recent nausea and diarrhea - GENITOURINARY/GYNECOLOGICAL Hx Genitourinary Disorders: No - PSYCHIATRIC Hx Psychophysiologic Disorder: No Hx Anxiety: No Hx Bipolar Disorder: No Hx Depression: No Hx Emotional Abuse: No Hx Hallucinations: No Hx Panic Symptoms: No Hx Post Traumatic Stress Disorder: No Hx Psychosis: No Hx Physical Abuse: No Hx Schizophrenia: No Hx Sexual Abuse: No Hx Substance Use: No - SURGICAL HISTORY Hx Coronary Stent: Yes Other/Comment: cardiac stent, pacemaker - ANESTHESIA Hx Anesthesia: Yes Hx Anesthesia Reactions: No Hx Malignant Hyperthermia: No Meds Allergies/Adverse Reactions: Allergies Allergy/AdvReac Type Severity Reaction Status Date / Time No Known Allergies Allergy Verified 08/14/17 03:23 Physical Exam - Head Exam Head Exam: ATRAUMATIC, NORMAL INSPECTION, NORMOCEPHALIC - Eye Exam Eye Exam: EOMI, Normal appearance, PERRL. absent: Periorbital tenderness Pupil Exam: NORMAL ACCOMODATION, PERRL. absent: Irregular, Unequal - ENT Exam ENT Exam: Mucous Membranes Moist, Normal Exam. absent: Normal Oropharynx, TM's Normal Bilaterally - Neck Exam Neck exam: Positive for: Normal Inspection. Negative for: Lymphadenopathy, Thyromegaly - Respiratory Exam Respiratory Exam: Clear to Auscultation Bilateral, NORMAL BREATHING PATTERN. absent: Chest Wall Tenderness, Prolonged Expiratory Phase, Respiratory Distress - Cardiovascular Exam Cardiovascular Exam: REGULAR RHYTHM. absent: JVD, RRR, Systolic Murmur - GI/Abdominal Exam GI & Abdominal Exam: Normal Bowel Sounds, Soft, Tenderness - Back Exam Back exam: NORMAL INSPECTION. absent: CVA tenderness (L), CVA tenderness (R), paraspinal tenderness - Neurological Exam Neurological exam: Alert, CN II-XII Intact, Oriented x3 - Psychiatric Exam Psychiatric exam: Normal Affect, Normal Mood - Skin Skin Exam: Dry, Intact Results - Vital Signs Recent Vital Signs: Last Vital Signs Temp 98.3 F 08/14/17 03:46 Pulse 78 08/14/17 03:46 Resp 16 08/14/17 03:46 BP 133/73 08/14/17 03:46 Pulse Ox 99 08/14/17 03:46 - Labs Result Diagrams: 08/14/17 04:15 08/14/17 04:15 Labs: Laboratory Results - last 24 hr 08/14/17 08/14/17 08/14/17 04:15 04:15 04:15 WBC 9.7 D RBC 3.80 Hgb 11.1 L Hct 34.3 L MCV 90.3 MCH 29.2 MCHC 32.4 RDW 16.2 H Plt Count 131 MPV 10.4 PT 15.8 H INR 1.43 H APTT 34.1 Sodium 139 Potassium 4.3 Chloride 102 Carbon Dioxide 28 Anion Gap 13 BUN 27 H Creatinine 1.2 Est GFR ( Amer) > 60 Est GFR (Non-Af Amer) 58 Random Glucose 88 Calcium 9.4 Total Bilirubin 1.2 AST 41 ALT 38 Alkaline Phosphatase 170 H Lactate Dehydrogenase 600 Total Creatine Kinase 77 Troponin I 0.10 Total Protein 7.1 Albumin 4.1 Globulin 3.0 Albumin/Globulin Ratio 1.4 Lipase 71 Assessment & Plan - Assessment and Plan (Free Text) Assessment: This is a 82 year old male with a past medical history of CHF, [place], defibrillation, CAD, TIA's, DM who was admitted for diffuse abdominal pain and decrease in appetite. Plan: 1. Abdominal pain -Abdomen and pelvis CT: Show multiple gallstones including a large stone in the neck of the gallbladder. -GI consulted. Will f/u with recs's. -NPO -IV fluids (1/2 NS) 2.CHF -Last Echo done in 02/2017 showed an EF of 20-25% -Restart home med's. 3.Type II Mellitus -ISS -Accuchecks ACHS GI ppx -Protonix DVT ppx -SCD's
--- NOTE | 2017-08-14 05:47 | CT ---
EXAM: CT Chest Without Intravenous Contrast CT Abdomen and Pelvis Without Intravenous Contrast EXAM DATE/TIME: 08/14/2017 3:58 AM CLINICAL HISTORY: 82 years old, male; Pain; Abdominal pain; Generalized; Chest pain; Additional info: Abd/chest pain TECHNIQUE: Axial computed tomography images of the chest, abdomen and pelvis without intravenous contrast. All CT scans at this facility use one or more dose reduction techniques, viz.: automated exposure control; ma/kV adjustment per patient size (including targeted exams where dose is matched to indication; i.e. head); or iterative reconstruction technique. All CT scans at this facility use one or more dose reduction techniques, viz.: automated exposure control; ma/kV adjustment per patient size (including targeted exams where dose is matched to indication; i.e. head); or iterative reconstruction technique. Coronal and sagittal reformatted images were created and reviewed. COMPARISON: Prior CT abdomen and pelvis of 2016-12-10 FINDINGS: CHEST: LUNGS:No evidence of significant focal consolidation/infiltrate in the lungs. No evidence of diffuse pulmonary vascular congestion. PLEURAL SPACE: Small right pleural effusion. No pneumothorax is seen. HEART: Heart appears moderately enlarged. Small to moderate pericardial effusion. Coronary artery calcification. MEDIASTINUM: Esophagus is mildly, diffusely dilated and is filled with fluid and air. ABDOMEN: LIVER: No acute abnormality of the liver identified. GALLBLADDER AND BILE DUCTS: Multiple gallstones, including a large stone in the gallbladder neck. Small amount of fluid is seen adjacent to the gallbladder. This is most likely related to the generalized abdominal free fluid rather than representing pericholecystic fluid secondary to acute cholecystitis. No evidence of significant pericholecystic inflammatory changes. No evidence of significant biliary ductal dilatation. PANCREAS: No CT evidence of acute pancreatitis. SPLEEN: No acute abnormality of the spleen identified. ADRENALS: 1.8 cm left adrenal lesion, having a CT attenuation of less than 10 Hounsfield units on this noncontrast exam, most compatible with a a benign adenoma. KIDNEYS AND URETERS: Low density lesion in the left kidney, most likely a cyst. This measures 2.2 cm. No acute abnormality of the kidneys identified. STOMACH AND BOWEL: Duodenal diverticulum noted. Colonic diverticulosis, with no evidence of acute diverticulitis. Otherwise, no significant abnormality of the bowel is identified. No evidence of bowel obstruction. ABDOMINAL/PELVIC WALL: Bilateral fat-containing inguinal hernias.No evidence of bowel herniation. APPENDIX: Appendix is seen, and is within normal limits in appearance. PELVIS: BLADDER: Moderate diverticulosis, highly suggestive of chronic bladder outlet obstruction. REPRODUCTIVE: No acute abnormality of the reproductive organs is seen. CHEST, ABDOMEN and PELVIS: INTRAPERITONEAL SPACE: Small amount of abdominal and pelvic free fluid. No evidence of free air. BONES/JOINTS: Multilevel degenerative disc disease of the spine. SOFT TISSUES: Bilateral gynecomastia. VASCULATURE: Aortic root and ascending thoracic aorta are dilated, measuring up to 4.5 cm in diameter, without ayaan aneurysmal dilatation (greater than 5 cm is considered aneurysmal dilatation). Exam is nondiagnostic for aortic dissection, secondary to unenhanced technique. No evidence of abdominal aortic aneurysm. LYMPH NODES: No evidence of diffuse lymphadenopathy. TUBES, LINES AND DEVICES: Implantable cardioverter defibrillator (AICD) in place. IMPRESSION: - Small amount of abdominal and pelvic free fluid. - Cardiomegaly, with a small moderate pericardial effusion. - Small right pleural effusion. - Otherwise, no evidence of significant acute process on this unenhanced exam. - Gallstones. - Bladder diverticulosis. - See above for remaining findings.
--- NOTE | 2017-08-14 09:04 | RAD ---
HISTORY: Chest pain COMPARISON: 03/15/2017. FINDINGS: LUNGS: The lungs are clear. PLEURA: No significant pleural effusion identified, no pneumothorax apparent. CARDIOVASCULAR: There is persistent severe cardiomegaly. There is stable position of a left-sided unipolar transvenous permanent pacing device. OSSEOUS STRUCTURES: No significant abnormalities. VISUALIZED UPPER ABDOMEN: Normal. OTHER FINDINGS: None. IMPRESSION: No acute findings. Severe cardiomegaly.
--- NOTE | 2017-08-14 09:36 | CARD ---
APPROVED REPORT EKG Measurement Heart [id number] <Conclusion> Probably a. flutter with V. pacing - in a bigeminal pattern LAD PRWP ASMI, old STTW changes c/w ischemia No change
[2017-08-14 10:38] LABS: TROPONIN I 0.11 ng/mL
[2017-08-14] MEDS: Sodium Chloride 0.45% 1,000 ML IV SCH ×2 (11:31→17:48)
--- NOTE | 2017-08-14 12:54 | CP.PCM.CON ---
<Dia Williamson - Last Filed: 08/14/17 12:55> History of Present Illness - History of Present Illness History of Present Illness: Seen and examined at the bedside earlier today, the chart was reviewed. Request for GI consult is for abdominal pain. HPI: This is a 82-year-old male with a past medical history of CHF, coronary artery disease, AICD, diabetes mellitus type 2 came to the emergency room complaints of diffuse abdominal pain and complaints of epigastric discomfort 1 day. The patient didn't complain of nausea, had episode of diarrhea denies any hematemesis or any melena or bright red blood per rectum. This morning on exam the patient denies abdominal pain, he endorses that he had an endoscopy many years ago, unsure of any history of peptic ulcer disease. On admission he was found to have positive troponins and irregular cardiac rhythm. He did have a CT scan of the chest abdomen and pelvis on admission found to have gallstones, pleural effusion, small abdominal/pelvic ascites and cardiomegaly. No current complaints of shortness of breath or chest pain. No current nausea, vomiting, abdominal pain, weight loss or loss of appetite. Past medical history: CHF, SC, CAD, TIA, diabetes mellitus type 2 AICD Surgical history: AICD, endoscopy greater than 5 years ago Family history: Noncontributory at this time Allergies: No known drug allergies Medications: Reviewed as per MAR, significant for Plavix Social history: Denies smoking, EtOH, or substance abuse ROS: Systems reviewed positive findings see HPI Past Patient History - Infectious Disease Hx of Infectious Diseases: None - Tetanus Immunizations Tetanus Immunization: Unknown - Past Social History Smoking Status: Never Smoked - CARDIAC Hx Cardiac Disorders: Yes (cad) Hx Cardia Arrhythmia: Yes Hx Hypertension: Yes Hx Internal Defibrillator: Yes Hx Pacemaker: Yes (Left Chest) - PULMONARY Hx Respiratory Disorders: No - NEUROLOGICAL Hx Neurological Disorder: Yes HX Cerebrovascular Accident: Yes Hx Dizziness: Yes (vertigo) - HEENT Hx HEENT Problems: Yes Hx Glaucoma: Yes - RENAL Hx Chronic Kidney Disease: No - ENDOCRINE/METABOLIC Hx Endocrine Disorders: Yes Hx Diabetes Mellitus Type 1: Yes - HEMATOLOGICAL/ONCOLOGICAL Hx Blood Disorders: Yes Hx Anemia: Yes - INTEGUMENTARY Hx Dermatological Problems: No - MUSCULOSKELETAL/RHEUMATOLOGICAL Hx Falls: No - GASTROINTESTINAL Hx Gastrointestinal Disorders: Yes (gi bleed) Other/Comment: recent nausea and diarrhea - GENITOURINARY/GYNECOLOGICAL Hx Genitourinary Disorders: No - PSYCHIATRIC Hx Psychophysiologic Disorder: No Hx Anxiety: No Hx Bipolar Disorder: No Hx Depression: No Hx Emotional Abuse: No Hx Hallucinations: No Hx Panic Symptoms: No Hx Post Traumatic Stress Disorder: No Hx Psychosis: No Hx Physical Abuse: No Hx Schizophrenia: No Hx Sexual Abuse: No Hx Substance Use: No - SURGICAL HISTORY Hx Coronary Stent: Yes Other/Comment: cardiac stent, pacemaker - ANESTHESIA Hx Anesthesia: Yes Hx Anesthesia Reactions: No Hx Malignant Hyperthermia: No Meds Allergies/Adverse Reactions: Allergies Allergy/AdvReac Type Severity Reaction Status Date / Time No Known Allergies Allergy Verified 08/14/17 03:23 - Medications Medications: Current Medications Sodium Chloride (Sodium Chloride 0.45%) 1,000 mls @ 125 mls/hr IV .Q8H [facility] Last Admin: 08/14/17 11:31 Dose: 125 mls/hr Physical Exam - Constitutional Appears: No Acute Distress - Head Exam Head Exam: NORMOCEPHALIC - Eye Exam Eye Exam: Normal appearance. absent: Scleral icterus - ENT Exam ENT Exam: Mucous Membranes Moist - Neck Exam Neck exam: Positive for: Normal Inspection - Respiratory Exam Respiratory Exam: Decreased Breath Sounds, NORMAL BREATHING PATTERN. absent: Respiratory Distress - Cardiovascular Exam Cardiovascular Exam: +S1, +S2 - GI/Abdominal Exam GI & Abdominal Exam: Normal Bowel Sounds, Soft. absent: Distended, Guarding, Rebound, Tenderness - Extremities Exam Extremities exam: Positive for: pedal pulses present. Negative for: calf tenderness, pedal edema - Neurological Exam Neurological exam: Alert, Oriented x3 - Skin Skin Exam: Dry, Warm Results - Vital Signs Recent Vital Signs: Last Vital Signs Temp 98.1 F 08/14/17 05:51 Pulse 79 08/14/17 10:00 Resp 16 08/14/17 05:51 BP 128/67 08/14/17 05:51 Pulse Ox 99 08/14/17 05:51 - Labs Result Diagrams: 08/14/17 04:15 08/14/17 04:15 Labs: Laboratory Results - last 24 hr 08/14/17 08/14/17 10:05 11:28 POC Glucose (mg/dL) 61 L Lactate Dehydrogenase 480 Total Creatine Kinase 60 Troponin I 0.11 NT-Pro-B Natriuret Pep 2980 H Assessment & Plan - Assessment and Plan (Free Text) Assessment: Assessment: Abdominal pain / Epigastric, differential to consider, gallstones, hepatic congestion, PUD Elevated troponins History of AICD Multiple gallstones seen on CT Diabetes mellitus type 2 Elevated BNP, history of CHF Plan: NPO, continue IV fluids cardiac evaluation Request for abdominal ultrasound Continue Protonix On Plavix and Aspirin On Aldactone DVT:SCD Thank you for this consult and following this a participate in your patient's care, we'll make further recommendations based upon clinical course. Seen and discussed with Dr. Baker <Shaun Baker V - Last Filed: 08/15/17 00:21> Meds - Medications Medications: Current Medications Aspirin (Ecotrin) 81 mg PO DAILY [facility] Atorvastatin Calcium (Lipitor) 20 mg PO DAILY [facility] Carvedilol (Coreg) 6.25 mg PO BID [facility] Last Admin: 08/14/17 18:11 Dose: 6.25 mg Cholecalciferol (Vitamin D) 1,000 iu PO DAILY [facility] Clopidogrel Bisulfate (Plavix) 75 mg PO DAILY [facility] Digoxin (Lanoxin) 0.125 mg PO DAILY [facility] Furosemide (Lasix) 40 mg PO DAILY [facility] Heparin Sodium (Porcine) (Heparin) 5,000 units SC Q12 [facility] PRN Reason: Protocol Last Admin: 08/14/17 21:08 Dose: 5,000 units Levothyroxine Sodium (Synthroid) 75 mcg PO DAILY [facility] Ondansetron HCl (Zofran Inj) 4 mg IVP Q4H PRN PRN Reason: Nausea/Vomiting Pantoprazole Sodium (Protonix Ec Tab) 40 mg PO DAILY [facility] Spironolactone (Aldactone) 25 mg PO DAILY [facility] Last Admin: 08/14/17 18:11 Dose: 25 mg Results - Vital Signs Recent Vital Signs: Last Vital Signs Temp 100.8 F H 08/15/17 00:01 Pulse 81 08/14/17 22:00 Resp 20 08/14/17 18:00 BP 131/73 08/14/17 18:11 Pulse Ox 98 08/14/17 18:00 - Labs Result Diagrams: 08/14/17 04:15 08/14/17 04:15 Labs: Laboratory Results - last 24 hr 08/14/17 08/14/17 08/14/17 10:05 11:28 15:50 POC Glucose (mg/dL) 61 L Lactate Dehydrogenase 480 487 Total Creatine Kinase 60 55 Troponin I 0.11 0.10 NT-Pro-B Natriuret Pep 2980 H 08/14/17 08/14/17 08/14/17 16:08 21:24 21:41 POC Glucose (mg/dL) 88 250 H Lactate Dehydrogenase 440 Total Creatine Kinase 51 Troponin I 0.12 NT-Pro-B Natriuret Pep Attending/Attestation - Attestation I have personally seen and examined this patient.: Yes I have fully participated in the care of the patient.: Yes I have reviewed all pertinent clinical information: Yes Notes (Text): This is an addendum to GI progress report dictated by Dia Williamson APN.The patient was seen and examined earlier. Medical records, lab studies, imagings were reviewed. Last 24 hours events reviewed. Agreed with the above treatment plan as outlined in Dia Williamson APN's notes with the addition of the following imaging studies reviewed Abdomen soft mild tenderness in the epigastric area and the palpation Differential diagnoses include biliary colic but a condition and ulcer disease was started on clear liquid diet and then once it as patient tolerates If any recurrence of the pain will consider HIDA scan 08/15/17 00:08 08/15/17 00:16
[2017-08-14 16:22] LABS: TROPONIN I 0.1 ng/mL
--- NOTE | 2017-08-14 16:35 | US ---
HISTORY: Abdominal pain, gb on ct COMPARISON: CT scan of the abdomen performed the same day TECHNIQUE: Sonographic evaluation of the abdomen. FINDINGS: LIVER: Measures 18.2 cm. Normal echogenicity of the liver parenchyma. No mass. No intrahepatic bile duct dilatation. GALLBLADDER: There are multiple gallstones. No wall thickening or pericholecystic fluid. There is layering sludge in the gallbladder. The sonographic Walters's sign is negative. COMMON BILE DUCT: Measures 6.0 mm. No stones. No dilatation. PANCREAS: Unremarkable as visualized. No mass. No ductal dilatation. RIGHT KIDNEY: Measures 10.4cm. Normal echogenicity. No calculus, mass, or hydronephrosis. LEFT KIDNEY: Measures 11.3cm. Normal echogenicity. No calculus, mass, or hydronephrosis. There is a 2.2 x 1.8 x 2.1 cm cyst in the upper pole. SPLEEN: Normal in size and contour. No mass. AORTA: No aneurysmal dilatation. IVC: Unremarkable. OTHER FINDINGS: There is small amount of free fluid in the left upper quadrant. IMPRESSION: 1. Cholelithiasis. No sonographic evidence for acute cholecystitis. 2. Small left upper quadrant ascites.
[2017-08-14 17:06] VITALS: BMI 24.0
[2017-08-14 22:07] LABS: TROPONIN I 0.12 ng/mL
[2017-08-15 07:11] LABS: ALB/GLOB RATIO 1.4 (1.1-1.8); ALKALINE PHOSPHATASE 134 U/L (38-126); ALT/SGPT 38 U/L (7-56); AST/SGOT 30 U/L (17-59); BILIRUBIN,TOTAL 2.1 mg/dL (0.2-1.3); BLOOD UREA NITROGEN 26 mg/dL (7-21); CALCIUM 8.9 mg/dL (8.4-10.5); CARBON DIOXIDE 29 mmol/L (21-33); CHLORIDE 101 mmol/L (95-110); GFR AFRICAN-AMERICAN > 60; GLUCOSE,RANDOM 170 mg/dL (70-110); PHOSPHOROUS 3.5 mg/dL (2.5-4.5); POTASSIUM 4.5 mmol/L (3.6-5.0); SODIUM 138 mmol/L (132-148); TOTAL PROTEIN 6.5 g/dL (5.8-8.3)
[2017-08-15 07:12] LABS: BASO # 0.02 K/mm3 (0.0-2.0); BASO % 0.2 % (0.0-3.0); EOS # 0.1 (0.0-0.7); EOS % 0.7 % (1.5-5.0); GRAN # 5.9 (1.4-6.5); GRAN % 71.4 % (50.0-68.0); HEMATOCRIT 32.2 % (42.0-52.0); LYMPH # 1.3 (1.2-3.4); LYMPH % 15.2 % (22.0-35.0); MEAN CELL VOLUME 91.2 fl (80.0-105.0); MEAN CORPUSCULAR HEMOGLOBIN 29.2 pg (25.0-35.0); MEAN PLATELET VOLUME 10.2 fl (7.0-11.0); MONO % 12.5 % (1.0-6.0); RED CELL DISTRIBUTION WIDTH 16.3 % (11.5-14.5); WHITE BLOOD COUNT 8.3 10^3/ul (4.5-11.0)
[2017-08-15 07:44] LABS: URINE APPEARANCE CLEAR (CLEAR); URINE BILIRUBIN NEGATIVE (NEGATIVE); URINE BLOOD NEGATIVE (NEGATIVE); URINE COLOR YELLOW (YELLOW); URINE GLUCOSE (UA) NEGATIVE (NEGATIVE); URINE KETONE 15 mg/dL (NEGATIVE); URINE LEUKOCYTE ESTERASE NEGATIVE Leu/uL (NEGATIVE); URINE PROTEIN 30 mg/dL (<30 mg/dL)
[2017-08-15 07:45] LABS: URINE BACTERIA FEW (NEG); URINE RBC 0 - 2 /hpf (0-2)
[2017-08-15] MEDS: Levothyroxine 75 MCG TAB PO SCH (09:17)
[2017-08-15] MEDS: Pantoprazole 40 mg EC Tab PO SCH (09:17)
[2017-08-15] MEDS: Digoxin 125 mcg (0.125 mg) Tab PO SCH (09:18)
--- NOTE | 2017-08-15 10:31 | CARD ---
APPROVED REPORT EKG Measurement Heart [id number] <Conclusion> A. Flutter with int. V. Pacing in a begeminal pattern LAD STTW changes c/w ischemia No change
--- NOTE | 2017-08-15 11:01 | RAD ---
HISTORY: fever COMPARISON: 08/14/2017 FINDINGS: LUNGS: No active pulmonary disease. PLEURA: No significant pleural effusion identified, no pneumothorax apparent. CARDIOVASCULAR: Mild cardiomegaly. Single lead pacemaker OSSEOUS STRUCTURES: No significant abnormalities. VISUALIZED UPPER ABDOMEN: Normal. OTHER FINDINGS: None. IMPRESSION: No active disease.
--- NOTE | 2017-08-15 13:30 | CON ---
DATE: 08/15/2017 INDICATIONS: Abdominal and chest discomfort. HISTORY OF PRESENT ILLNESS: This is an 82-year-old man well known to our practice admitted to the emergency room yesterday. When he complained of diffuse abdominal pain sometimes radiating into the chest with loss of appetite and diarrhea, also reported. He has had diminished appetite as well. He has chronic dyspnea on exertion with no orthopnea, PND, syncope, presyncope, palpitations, edema, claudication, fever, chills, cough, sputum production, hemoptysis, nausea, vomiting, or melena. PAST MEDICAL HISTORY: Complex, he has coronary artery disease with remote myocardial infarction, severe LV dysfunction, ejection fraction about 25% on most recent echocardiography with mild mitral regurgitation. He has a defibrillator in place. He has congestive heart failure, atrial fibrillation, not anticoagulated because of prior GI bleeding. He has diabetes, hypertension, hyperlipidemia, TIAs, gout, cataracts, thrombocytopenia, cerebrovascular disease which was mild on the right and moderate on the left recently. He had admission for altered mental status recently and a possible TIA. Workup with CAT scan and abdominal ultrasound demonstrated gallstones, but no evidence of cholecystitis. There is a small amount of ascitic fluid noticed as well. MEDICATIONS AT THE TIME OF ADMISSION: Included aspirin, Aldactone, Coreg, insulin, digoxin, Lasix, Lipitor, Plavix, Protonix, Synthroid, vitamin D. ALLERGIES: THERE WERE NO KNOWN MEDICATION ALLERGIES REPORTED. SOCIAL HISTORY: He lives at home. He does not smoke. He does not drink except on rare occasions. REVIEW OF SYSTEMS: Otherwise unremarkable. FAMILY HISTORY: Noncontributory. PHYSICAL EXAMINATION: GENERAL: An elderly male, lying in bed on telemetry, in no acute distress. VITAL SIGNS: Notable for ventricular pacing at about 70-80 beats per minute. He is afebrile. Blood pressure 108/59, respirations 20, O2 sat 97% on room air. HEENT: Reveals no neck vein distention, thyromegaly, or carotid bruits. Mucous membranes are moist. Conjunctivae pink. NECK: Supple. LUNGS: Lung greene a few scattered rhonchi. HEART: Revealed normal first and second heart sounds. There is a systolic murmur along the left sternal border. PMI is laterally displaced. ABDOMEN: Soft. Bowel sounds are present. No mass, organomegaly, tenderness, rebound, guarding or CVA tenderness. No palpable abdominal aortic aneurysm. EXTREMITIES: Revealed no cyanosis, clubbing, or edema. NEUROLOGIC: He was awake, alert, and oriented. PSYCHIATRIC: Normal as to mood and affect. SKIN: Warm and dry. No rash or cellulitis. LABORATORY AND IMAGING: A portable chest x-ray revealed cardiomegaly, defibrillator in place with a portable study, it is read as no acute findings. EKG demonstrates atrial flutter with intermittent ventricular pacing. CT scan of the abdomen and pelvis reveals gallstones, bladder diverticula, ascitic fluid. Abdominal ultrasound reveals cholelithiasis. No sonographic evidence for acute cholecystitis, small left upper quadrant, ascites. White count normal, platelet count low at 114,000, hemoglobin 10.3, hematocrit 32.2. PT 15.8, INR 1.43, PTT 34.1. Electrolytes, BUN, creatinine, blood sugars unremarkable. Total bilirubin normal. AST and ALT normal. Alkaline phos elevated at 170. CK is negative x3, troponin negative x5, BNP 2980. Urinalysis is noted. ASSESSMENT: Chase Foley is an 82-year-old man complaining of abdominal pain found to have gallstones but no evidence of cholecystitis. He also had some chest pain and some chronic dyspnea as well as diarrhea and loss of appetite. PLAN: At this time, he is on telemetry. He is undergoing GI workup by Dr. Baker. I will review his old records. He is ruled out for myocardial infarction. He has chronic CHF, which is not decompensated at this time. I will continue his usual cardiac medications including aspirin, spironolactone, Coreg, digoxin, Lasix, Lipitor, Plavix. He is getting subcutaneous heparin. I will check a digoxin level. He is getting Synthroid, vitamin D and Zofran as needed. We will monitor Is and Os. Check stool for occult blood. I will review his fairly recent echocardiogram. We will follow along with you and make additional recommendations based on his clinical course. Ramakrishna Weiner MD [facility]
--- NOTE | 2017-08-15 13:48 | CP.PCM.PN ---
<Micheal Barksdale - Last Filed: 08/15/17 15:38> Subjective - Date & Time of Evaluation Date of Evaluation: 08/15/17 Time of Evaluation: 06:00 - Subjective Subjective: Patient seen and evaluated bedside. Patient had 100.8 fever overnight for which he was given tylenol. He said his abdominal pain improved greatly. He ate and was able to tolerate well. He denied any Chest pain, SOB, nausea, vomiting, chills, sore throat or any other complaints. Objective - Vital Signs/Intake and Output Vital Signs (last 24 hours): Temp Pulse Resp BP Pulse Ox 98 F 68 20 101/45 L 97 08/15/17 11:36 08/15/17 11:36 08/15/17 11:36 08/15/17 11:36 08/15/17 06:00 - Medications Medications: Current Medications Aspirin (Ecotrin) 81 mg PO DAILY [facility] Last Admin: 08/15/17 09:17 Dose: 81 mg Atorvastatin Calcium (Lipitor) 20 mg PO DAILY [facility] Last Admin: 08/15/17 09:17 Dose: 20 mg Carvedilol (Coreg) 6.25 mg PO BID [facility] Last Admin: 08/15/17 09:18 Dose: 6.25 mg Cholecalciferol (Vitamin D) 1,000 iu PO DAILY [facility] Last Admin: 08/15/17 09:17 Dose: 1,000 iu Clopidogrel Bisulfate (Plavix) 75 mg PO DAILY [facility] Last Admin: 08/15/17 09:17 Dose: 75 mg Digoxin (Lanoxin) 0.125 mg PO DAILY [facility] Last Admin: 08/15/17 09:18 Dose: 0.125 mg Docusate Sodium (Colace) 100 mg PO BID [facility] Last Admin: 08/15/17 12:38 Dose: Not Given Furosemide (Lasix) 40 mg PO DAILY [facility] Last Admin: 08/15/17 09:17 Dose: 40 mg Heparin Sodium (Porcine) (Heparin) 5,000 units SC Q12 [facility] PRN Reason: Protocol Last Admin: 08/15/17 09:17 Dose: 5,000 units Insulin Human Regular (Humulin R Low) 0 units SC ACHS [facility] PRN Reason: Protocol Levothyroxine Sodium (Synthroid) 75 mcg PO DAILY [facility] Last Admin: 08/15/17 09:17 Dose: 75 mcg Ondansetron HCl (Zofran Inj) 4 mg IVP Q4H PRN PRN Reason: Nausea/Vomiting Pantoprazole Sodium (Protonix Ec Tab) 40 mg PO DAILY [facility] Last Admin: 08/15/17 09:17 Dose: 40 mg Spironolactone (Aldactone) 25 mg PO DAILY [facility] Last Admin: 08/15/17 09:17 Dose: 25 mg - Labs Labs: 08/15/17 06:57 08/15/17 06:57 PT 15.8 SECONDS (9.4-12.5) H 08/14/17 04:15 INR 1.43 (0.93-1.08) H 08/14/17 04:15 APTT 34.1 Seconds (25.1-36.5) 08/14/17 04:15 - Constitutional Appears: Non-toxic, No Acute Distress - Head Exam Head Exam: ATRAUMATIC, NORMAL INSPECTION, NORMOCEPHALIC - Eye Exam Eye Exam: EOMI, Normal appearance, PERRL Pupil Exam: NORMAL ACCOMODATION, PERRL - ENT Exam ENT Exam: Mucous Membranes Moist, Normal Exam - Neck Exam Neck Exam: Full ROM, Normal Inspection. absent: Tenderness - Respiratory Exam Respiratory Exam: Clear to Ausculation Bilateral, NORMAL BREATHING PATTERN - Cardiovascular Exam Cardiovascular Exam: REGULAR RHYTHM, +S1, +S2 - GI/Abdominal Exam GI & Abdominal Exam: Soft, Normal Bowel Sounds. absent: Guarding, Tenderness, Rebound Additional comments: very minimal tenderness in right upper quadrant - Extremities Exam Extremities Exam: Full ROM, Normal Capillary Refill, Normal Inspection - Back Exam Back Exam: NORMAL INSPECTION - Neurological Exam Neurological Exam: Alert, Awake, Oriented x3 - Skin Skin Exam: Normal Color, Warm Assessment and Plan - Assessment and Plan (Free Text) Assessment: This is a 82 year old male with a past medical history of CHF, ID, defibrillation, CAD, TIA's, DM who was admitted for diffuse abdominal pain and decrease in appetite. He is being evaluated for abdominal pain. Plan: 1. Abdominal pain -Abdomen and pelvis CT: Show multiple gallstones including a large stone in the neck of the gallbladder. -GI consulted: no plan for surgery at this time -Abdominal U/S: cholelithiasis, no evidence of cholecystectomy, small left upper quadrant ascites -follow up C diff toxin 2. Fever-overnight -Temp was 100.8, currently afebrile 98 -no leukocytosis -Lower Extremity U/S ordered will follow up -follow up blood cultures -Procalcitoin ordered, follow up 3.CHF -Last Echo done in 02/2017 showed an EF of 20-25% -continue home medications -troponin trended x3 .10, .11 , .10, .12 (likely chronic) -repeat EKG no change -BNP 2980 -Cardiology Consulted Hefferen: no intervention at this time, hold aspirin, continue plavix 4. A-fib -Cont home medications -continue plavix, hold aspirin 5.Type II Mellitus -ISS -Accuchecks ACHS 6. GI ppx -Protonix 7. DVT ppx -Heparin <Mehrdad Gold - Last Filed: 08/15/17 17:47> Objective - Vital Signs/Intake and Output Vital Signs (last 24 hours): Temp Pulse Resp BP Pulse Ox 98.3 F 70 19 106/71 97 08/15/17 16:55 08/15/17 17:04 08/15/17 16:55 08/15/17 17:04 08/15/17 06:00 - Medications Medications: Current Medications Aspirin (Ecotrin) 81 mg PO DAILY [facility] Last Admin: 08/15/17 09:17 Dose: 81 mg Atorvastatin Calcium (Lipitor) 20 mg PO DAILY [facility] Last Admin: 08/15/17 09:17 Dose: 20 mg Carvedilol (Coreg) 6.25 mg PO BID [facility] Last Admin: 08/15/17 17:04 Dose: 6.25 mg Cholecalciferol (Vitamin D) 1,000 iu PO DAILY [facility] Last Admin: 08/15/17 09:17 Dose: 1,000 iu Clopidogrel Bisulfate (Plavix) 75 mg PO DAILY [facility] Last Admin: 08/15/17 09:17 Dose: 75 mg Digoxin (Lanoxin) 0.125 mg PO DAILY [facility] Last Admin: 08/15/17 09:18 Dose: 0.125 mg Docusate Sodium (Colace) 100 mg PO BID [facility] Last Admin: 08/15/17 17:04 Dose: 100 mg Furosemide (Lasix) 40 mg PO DAILY [facility] Last Admin: 08/15/17 09:17 Dose: 40 mg Heparin Sodium (Porcine) (Heparin) 5,000 units SC Q12 [facility] PRN Reason: Protocol Last Admin: 08/15/17 09:17 Dose: 5,000 units Insulin Human Regular (Humulin R Low) 0 units SC ACHS [facility] PRN Reason: Protocol Last Admin: 08/15/17 17:03 Dose: 3 units Levothyroxine Sodium (Synthroid) 75 mcg PO DAILY [facility] Last Admin: 08/15/17 09:17 Dose: 75 mcg Ondansetron HCl (Zofran Inj) 4 mg IVP Q4H PRN PRN Reason: Nausea/Vomiting Pantoprazole Sodium (Protonix Ec Tab) 40 mg PO DAILY [facility] Last Admin: 08/15/17 09:17 Dose: 40 mg Spironolactone (Aldactone) 25 mg PO DAILY [facility] Last Admin: 08/15/17 09:17 Dose: 25 mg - Labs Labs: PT 15.8 SECONDS (9.4-12.5) H 08/14/17 04:15 INR 1.43 (0.93-1.08) H 08/14/17 04:15 APTT 34.1 Seconds (25.1-36.5) 08/14/17 04:15 Attending/Attestation - Attestation I have personally seen and examined this patient.: Yes I have fully participated in the care of the patient.: Yes I have reviewed all pertinent clinical information, including history, physical exam and plan: Yes Notes (Text): I have seen and examined the patient at bedside. Agree with the above note with the following additions/ exceptions: Briefly this is 82 year old male with history of CAD s/p stent, CKD, 60-79% left ICA stenosis and 20-39% right ICA stenosis, CHF secondary to systolic dysfunction (EF~20-25%), AICD, DM-2, glaucoma, chronic atrial fibrillation not on anti cogulation due to GI bleed who was brought for evaluation of abdominal pain most likely due to biliary colic. Today abdominal pain has resolved. He had temp of 100.8 overnight. Cultures obtained which is pending. Procal pending. CXR did not show any infiltrate. LE US pending to r/o DVT. Patient overall feels well and denies any complaints. I had a detailed discussion with patients daughter who informed me that patient was scheduled for watchman's procedure on 08/17/2017 and he was advised to hold plavix and start eliquis prior to procedure. Patient got todays dose of asa and plavix. Will discuss with Dr Hi tomorrow. I had a detailed discussion with Dr Weiner who advised to discontinue telemetry. No further cardiac inpatient work up planned. Patient has stable CKD. Upon discharge patient will follow up with Dr Hobson. Dr Mehrdad Gold
[2017-08-15] MEDS: Insulin Reg-LOW-Coverage SC SCH ×2 (17:03→21:34)
--- NOTE | 2017-08-15 17:45 | US ---
HISTORY: Leg pain and swelling. Evaluate for DVT PHYSICIAN(S): Payam Avila MD. TECHNIQUE: Duplex sonography and color-flow Doppler with graded compression were used to evaluate the deep venous systems of both lower extremities. FINDINGS: The visualized deep venous systems of both lower extremities are sonographically normal and compressible. Normal wave forms and augmentation are seen. There is no sonographic evidence for deep venous thrombosis in the visualized segments of both lower extremities. IMPRESSION: No sonographic evidence for deep venous thrombosis in the visualized segments of both lower extremities.
--- NOTE | 2017-08-15 18:45 | CP.PCM.PN ---
<Dia Williamson - Last Filed: 08/15/17 20:22> Subjective - Date & Time of Evaluation Date of Evaluation: 08/15/17 Time of Evaluation: 10:15 - Subjective Subjective: Seen and examined at the bedside earlier today, patient denies nausea, vomiting , shortness of breath or chest pain. Patient had fever last night Tmax 100.8. Non this am. Patient denies abdominal pain. No episodes of diarrhea, or overt GI bleed. Patient went for an abdominal ultrasound yesterday which did show multiple gallstones with layer of sludge, no cholecystitis, CBD measures 6.0 mm. Also reported left upper quadrant ascites. Objective - Vital Signs/Intake and Output Vital Signs (last 24 hours): Temp Pulse Resp BP Pulse Ox 98.3 F 70 19 106/71 97 08/15/17 18:00 08/15/17 17:04 08/15/17 18:00 08/15/17 18:00 08/15/17 06:00 - Medications Medications: Current Medications Aspirin (Ecotrin) 81 mg PO DAILY [facility] Last Admin: 08/15/17 09:17 Dose: 81 mg Atorvastatin Calcium (Lipitor) 20 mg PO DAILY [facility] Last Admin: 08/15/17 09:17 Dose: 20 mg Carvedilol (Coreg) 6.25 mg PO BID [facility] Last Admin: 08/15/17 17:04 Dose: 6.25 mg Cholecalciferol (Vitamin D) 1,000 iu PO DAILY [facility] Last Admin: 08/15/17 09:17 Dose: 1,000 iu Clopidogrel Bisulfate (Plavix) 75 mg PO DAILY [facility] Last Admin: 08/15/17 09:17 Dose: 75 mg Digoxin (Lanoxin) 0.125 mg PO DAILY [facility] Last Admin: 08/15/17 09:18 Dose: 0.125 mg Docusate Sodium (Colace) 100 mg PO BID [facility] Last Admin: 08/15/17 17:04 Dose: 100 mg Furosemide (Lasix) 40 mg PO DAILY [facility] Last Admin: 08/15/17 09:17 Dose: 40 mg Heparin Sodium (Porcine) (Heparin) 5,000 units SC Q12 [facility] PRN Reason: Protocol Last Admin: 08/15/17 09:17 Dose: 5,000 units Insulin Human Regular (Humulin R Low) 0 units SC ACHS [facility] PRN Reason: Protocol Last Admin: 08/15/17 17:03 Dose: 3 units Levothyroxine Sodium (Synthroid) 75 mcg PO DAILY [facility] Last Admin: 08/15/17 09:17 Dose: 75 mcg Ondansetron HCl (Zofran Inj) 4 mg IVP Q4H PRN PRN Reason: Nausea/Vomiting Pantoprazole Sodium (Protonix Ec Tab) 40 mg PO DAILY [facility] Last Admin: 08/15/17 09:17 Dose: 40 mg Spironolactone (Aldactone) 25 mg PO DAILY [facility] Last Admin: 08/15/17 09:17 Dose: 25 mg - Labs Labs: PT 15.8 SECONDS (9.4-12.5) H 08/14/17 04:15 INR 1.43 (0.93-1.08) H 08/14/17 04:15 APTT 34.1 Seconds (25.1-36.5) 08/14/17 04:15 - Constitutional Appears: No Acute Distress - Head Exam Head Exam: NORMOCEPHALIC - Eye Exam Eye Exam: Normal appearance. absent: Scleral icterus - ENT Exam ENT Exam: Mucous Membranes Moist - Neck Exam Neck Exam: Normal Inspection - Respiratory Exam Respiratory Exam: Decreased Breath Sounds, NORMAL BREATHING PATTERN. absent: Rales, Wheezes, Respiratory Distress - Cardiovascular Exam Cardiovascular Exam: +S1, +S2 - GI/Abdominal Exam GI & Abdominal Exam: Soft, Normal Bowel Sounds. absent: Guarding, Tenderness, Organomegaly, Rebound - Extremities Exam Extremities Exam: Normal Capillary Refill. absent: Calf Tenderness, Pedal Edema - Neurological Exam Neurological Exam: Alert, Awake, Oriented x3 - Skin Skin Exam: Dry, Warm Assessment and Plan - Assessment and Plan (Free Text) Assessment: Assessment: Abdominal pain / Epigastric, differential to consider, gallstones, hepatic congestion, PUD Elevated troponins Elevated LFT, differentials to consider is hepatic congestion, poor EF 25%, CHF vs CBD stone, patient w/ elevated TB/ALk phos, patient had abdominal US, CBD not dilated on evidence of cholecystitis. History of AICD Multiple gallstones w/ sludge, no evidence of cholecystitis Diabetes mellitus type 2 Elevated BNP, history of CHF Plan: on full liquids, advance as tolerated. Continue Protonix On Plavix and Aspirin On Aldactone, lasix DVT:SCD trend lft as per cardiology pending stool studies, no current diarrhea now Will trend LFT, if show an upward trend would consider EUS for further evaluation, pateint w/ AICD, not candidate for MRCP. Seen and discussed with Dr. Baker <Shaun Baker V - Last Filed: 08/15/17 22:41> Objective - Vital Signs/Intake and Output Vital Signs (last 24 hours): Temp Pulse Resp BP Pulse Ox 98.3 F 70 19 106/71 97 08/15/17 18:00 08/15/17 17:04 08/15/17 18:00 08/15/17 18:00 08/15/17 06:00 - Medications Medications: Current Medications Aspirin (Ecotrin) 81 mg PO DAILY [facility] Last Admin: 08/15/17 09:17 Dose: 81 mg Atorvastatin Calcium (Lipitor) 20 mg PO DAILY [facility] Last Admin: 08/15/17 09:17 Dose: 20 mg Carvedilol (Coreg) 6.25 mg PO BID [facility] Last Admin: 08/15/17 17:04 Dose: 6.25 mg Cholecalciferol (Vitamin D) 1,000 iu PO DAILY [facility] Last Admin: 08/15/17 09:17 Dose: 1,000 iu Clopidogrel Bisulfate (Plavix) 75 mg PO DAILY [facility] Last Admin: 08/15/17 09:17 Dose: 75 mg Digoxin (Lanoxin) 0.125 mg PO DAILY [facility] Last Admin: 08/15/17 09:18 Dose: 0.125 mg Docusate Sodium (Colace) 100 mg PO BID [facility] Last Admin: 08/15/17 17:04 Dose: 100 mg Furosemide (Lasix) 40 mg PO DAILY [facility] Last Admin: 08/15/17 09:17 Dose: 40 mg Heparin Sodium (Porcine) (Heparin) 5,000 units SC Q12 [facility] PRN Reason: Protocol Last Admin: 08/15/17 21:38 Dose: 5,000 units Insulin Human Regular (Humulin R Low) 0 units SC ACHS [facility] PRN Reason: Protocol Last Admin: 08/15/17 21:34 Dose: Not Given Levothyroxine Sodium (Synthroid) 75 mcg PO DAILY [facility] Last Admin: 08/15/17 09:17 Dose: 75 mcg Ondansetron HCl (Zofran Inj) 4 mg IVP Q4H PRN PRN Reason: Nausea/Vomiting Pantoprazole Sodium (Protonix Ec Tab) 40 mg PO DAILY [facility] Last Admin: 08/15/17 09:17 Dose: 40 mg Spironolactone (Aldactone) 25 mg PO DAILY [facility] Last Admin: 08/15/17 09:17 Dose: 25 mg - Labs Labs: PT 15.8 SECONDS (9.4-12.5) H 08/14/17 04:15 INR 1.43 (0.93-1.08) H 08/14/17 04:15 APTT 34.1 Seconds (25.1-36.5) 08/14/17 04:15 Attending/Attestation - Attestation I have personally seen and examined this patient.: Yes I have fully participated in the care of the patient.: Yes I have reviewed all pertinent clinical information, including history, physical exam and plan: Yes Notes (Text): This is an addendum to GI progress report dictated by Dia Williamson APN.The patient was seen and examined earlier. Medical records, lab studies, imagings were reviewed. Last 24 hours events reviewed. Agreed with the above treatment plan as outlined in Dia Williamson APN's notes the with the addition of the following On examination abdomen soft, tenderness This 82-year-old. Has a low-grade fever ultrasound revealed gallstones with no wall thickening or pericholecystic edema or other features suggestive active cholecystitis. tHE mildly elevated LFT could be due to hepatic congestion. Patient's common bile duct normal. Patient does have poor cardiac function Ef of 25% The radial concern is low-grade fever source is unclear Would recommend follow-up LFT, cultures, Cardiology follow-up Would consider EUS if the LFT shows upward trend and fever 08/15/17 22:30
[2017-08-16 06:33] LABS: BASO # 0.02 K/mm3 (0.0-2.0); BASO % 0.3 % (0.0-3.0); EOS # 0.1 (0.0-0.7); EOS % 1.2 % (1.5-5.0); GRAN # 3.78 (1.4-6.5); GRAN % 65.9 % (50.0-68.0); HEMATOCRIT 30.6 % (42.0-52.0); LYMPH # 1.3 (1.2-3.4); LYMPH % 23.2 % (22.0-35.0); MEAN CELL VOLUME 91.1 fl (80.0-105.0); MEAN CORPUSCULAR HEMOGLOBIN 29.2 pg (25.0-35.0); MEAN PLATELET VOLUME 10.5 fl (7.0-11.0); MONO # 0.5 (0.1-0.6); MONO % 9.4 % (1.0-6.0); RED CELL DISTRIBUTION WIDTH 16.1 % (11.5-14.5); WHITE BLOOD COUNT 5.7 10^3/ul (4.5-11.0)
[2017-08-16 06:55] LABS: ALB/GLOB RATIO 1.2 (1.1-1.8); BILIRUBIN,TOTAL 1.2 mg/dL (0.2-1.3); CALCIUM 8.8 mg/dL (8.4-10.5); POTASSIUM 4.3 mmol/L (3.6-5.0); TOTAL PROTEIN 6.4 g/dL (5.8-8.3)
[2017-08-16] MEDS: Insulin Reg-LOW-Coverage SC SCH ×2 (08:13→13:16)
--- NOTE | 2017-08-16 11:04 | CP.PCM.DIS ---
<Micheal Barksdale - Last Filed: 08/16/17 13:38> Provider - Provider Date of Admission: 08/15/17 13:47 Attending physician: Mehrdad Gold MD Primary care physician: Moy Hussein MD Time Spent in preparation of Discharge (in minutes): 70 Hospital Course - Lab Results Lab Results: Most Recent Lab Values WBC 5.7 10^3/ul (4.5-11.0) D 08/16/17 06:00 RBC 3.36 10^6/uL (3.5-6.1) L 08/16/17 06:00 Hgb 9.8 g/dL (14.0-18.0) L 08/16/17 06:00 Hct 30.6 % (42.0-52.0) L 08/16/17 06:00 MCV 91.1 fl (80.0-105.0) 08/16/17 06:00 MCH 29.2 pg (25.0-35.0) 08/16/17 06:00 MCHC 32.0 g/dl (31.0-37.0) 08/16/17 06:00 RDW 16.1 % (11.5-14.5) H 08/16/17 06:00 Plt Count 105 10^3/uL (120.0-450.0) L 08/16/17 06:00 MPV 10.5 fl (7.0-11.0) 08/16/17 06:00 Gran % 65.9 % (50.0-68.0) 08/16/17 06:00 Lymph % (Auto) 23.2 % (22.0-35.0) 08/16/17 06:00 Bulloch % (Auto) 9.4 % (1.0-6.0) H 08/16/17 06:00 Eos % (Auto) 1.2 % (1.5-5.0) L 08/16/17 06:00 Baso % (Auto) 0.3 % (0.0-3.0) 08/16/17 06:00 Gran # 3.78 (1.4-6.5) 08/16/17 06:00 Lymph # 1.3 (1.2-3.4) 08/16/17 06:00 Bulloch # 0.5 (0.1-0.6) 08/16/17 06:00 Eos # 0.1 (0.0-0.7) 08/16/17 06:00 Baso # 0.02 K/mm3 (0.0-2.0) 08/16/17 06:00 PT 15.8 SECONDS (9.4-12.5) H 08/14/17 04:15 INR 1.43 (0.93-1.08) H 08/14/17 04:15 APTT 34.1 Seconds (25.1-36.5) 08/14/17 04:15 Sodium 135 mmol/L (132-148) 08/16/17 06:00 Potassium 4.3 mmol/L (3.6-5.0) 08/16/17 06:00 Chloride 100 mmol/L (95-110) 08/16/17 06:00 Carbon Dioxide 30 mmol/L (21-33) 08/16/17 06:00 Anion Gap 9 (10-20) L 08/16/17 06:00 BUN 32 mg/dL (7-21) H 08/16/17 06:00 Creatinine 1.4 mg/dL (0.8-1.5) 08/16/17 06:00 Est GFR ( Amer) 59 08/16/17 06:00 Est GFR (Non-Af Amer) 49 08/16/17 06:00 POC Glucose (mg/dL) 250 mg/dL (65-110) H 08/16/17 07:21 Random Glucose 207 mg/dL (70-110) H 08/16/17 06:00 Calcium 8.8 mg/dL (8.4-10.5) 08/16/17 06:00 Phosphorus 3.0 mg/dL (2.5-4.5) 08/16/17 06:00 Magnesium 2.0 mg/dL (1.7-2.2) 08/16/17 06:00 Total Bilirubin 1.2 mg/dL (0.2-1.3) 08/16/17 06:00 AST 28 U/L (17-59) 08/16/17 06:00 ALT 37 U/L (7-56) 08/16/17 06:00 Alkaline Phosphatase 132 U/L (38-126) H 08/16/17 06:00 Lactate Dehydrogenase 440 U/L (333-699) 08/14/17 21:41 Total Creatine Kinase 51 U/L (35-230) 08/14/17 21:41 Troponin I 0.12 ng/mL 08/14/17 21:41 NT-Pro-B Natriuret Pep 2980 pg/mL (0-450) H 08/14/17 10:05 Total Protein 6.4 g/dL (5.8-8.3) 08/16/17 06:00 Albumin 3.5 g/dL (3.0-4.8) 08/16/17 06:00 Globulin 2.9 gm/dL 08/16/17 06:00 Albumin/Globulin Ratio 1.2 (1.1-1.8) 08/16/17 06:00 Lipase 71 U/L (23-300) 08/14/17 04:15 Procalcitonin 0.14 NG/ML (0.19-0.49) L 08/15/17 08:00 Urine Color Yellow (YELLOW) 08/15/17 03:00 Urine Appearance Clear (CLEAR) 08/15/17 03:00 Urine pH 6.0 (4.7-8.0) 08/15/17 03:00 Ur Specific Mark 1.025 (1.005-1.035) 08/15/17 03:00 Urine Protein 30 mg/dL (<30 mg/dL) H 08/15/17 03:00 Urine Glucose (UA) Negative mg/dL (NEGATIVE) 08/15/17 03:00 Urine Ketones 15 mg/dL (NEGATIVE) H 08/15/17 03:00 Urine Blood Negative (NEGATIVE) 08/15/17 03:00 Urine Nitrate Negative (NEGATIVE) 08/15/17 03:00 Urine Bilirubin Negative (NEGATIVE) 08/15/17 03:00 Urine Urobilinogen 1.0 E.U./dL (<1 E.U./dL) H 08/15/17 03:00 Ur Leukocyte Esterase Negative Fartun/uL (NEGATIVE) 08/15/17 03:00 Urine RBC 0 - 2 /hpf (0-2) 08/15/17 03:00 Urine WBC 1 - 3 /hpf (0-6) 08/15/17 03:00 Ur Epithelial Cells 1 - 3 /hpf (0-5) 08/15/17 03:00 Urine Bacteria Few (NEG) 08/15/17 03:00 Digoxin 0.9 ng/mL (0.8-2.0) 08/16/17 06:00 - Hospital Course Hospital Course: This is a 82 year old male with a past medical history of CHF, TX, defibrillation, CAD, TIA's, DM who was admitted for diffuse abdominal pain and decrease in appetite. He is being evaluated for abdominal pain. GI was consulted , patient was started on home medications. CT abdomen and Pelvis was done and showed multiple gallstones including a large stone in the neck of the gallbladder. GI did not think an intervention was warranted. Abdominal U/S was done showing cholelithiasis, no evidence of cholecystitis , small left upper quadrant ascites. Patient also developed a fever overnight during the stay for which tylenol was given. Blood ciultures were ordered and came back negative, LE Ultrasound was done and also came back negative. Procalcitonin also came back low. Troponin trended, cardiology Dr. Porter was consulted who decided no intervention at this time. GI and DVT prophylaxis were given. Patients abdominal pain resolved and was disharged to home. At discharge patient and son were told to stop the aspirin and plavix and to start eliquis at home 5mg BID. They were aware of the plan and to follow up with the PMD and Dr. Porter. Discharge Exam - Head Exam Head Exam: ATRAUMATIC, NORMAL INSPECTION, NORMOCEPHALIC - Eye Exam Eye Exam: Normal appearance, PERRL Pupil Exam: PERRL - ENT Exam ENT Exam: Normal Exam - Respiratory Exam Respiratory Exam: Clear to PA & Lateral, NORMAL BREATHING PATTERN - Cardiovascular Exam Cardiovascular Exam: REGULAR RHYTHM - GI/Abdominal Exam GI & Abdominal Exam: Normal Bowel Sounds - Neurological Exam Neurological exam: Alert, Oriented x3 - Psychiatric Exam Psychiatric exam: Normal Affect - Skin Skin Exam: Normal Color, Warm Discharge Plan - Follow Up Plan Condition: STABLE Disposition: HOME/ ROUTINE Instructions: Chest Pain (ED), Abdominal Pain in Children (DC), Gallstones (DC) Additional Instructions: Stop asprin and plavix, please start eliquis 5 mg twice a day, startiing tonight when you get home. Continue insulin pump at home as previusly being used. Follow up with Primary medial doctor and Dr. Porter. Patient free to come back to the ED if symptoms arise again. Referrals: Moy Hussein MD [Primary Care Provider] - Yogi Taylor MD [Staff Provider] - <Mehrdad Gold - Last Filed: 08/16/17 17:54> Provider - Provider Date of Admission: 08/15/17 13:47 Attending physician: Mehrdad Gold MD Primary care physician: Moy Hussein MD Hospital Course - Lab Results Lab Results: Most Recent Lab Values WBC 5.7 10^3/ul (4.5-11.0) D 08/16/17 06:00 RBC 3.36 10^6/uL (3.5-6.1) L 08/16/17 06:00 Hgb 9.8 g/dL (14.0-18.0) L 08/16/17 06:00 Hct 30.6 % (42.0-52.0) L 08/16/17 06:00 MCV 91.1 fl (80.0-105.0) 08/16/17 06:00 MCH 29.2 pg (25.0-35.0) 08/16/17 06:00 MCHC 32.0 g/dl (31.0-37.0) 08/16/17 06:00 RDW 16.1 % (11.5-14.5) H 08/16/17 06:00 Plt Count 105 10^3/uL (120.0-450.0) L 08/16/17 06:00 MPV 10.5 fl (7.0-11.0) 08/16/17 06:00 Gran % 65.9 % (50.0-68.0) 08/16/17 06:00 Lymph % (Auto) 23.2 % (22.0-35.0) 08/16/17 06:00 Bulloch % (Auto) 9.4 % (1.0-6.0) H 08/16/17 06:00 Eos % (Auto) 1.2 % (1.5-5.0) L 08/16/17 06:00 Baso % (Auto) 0.3 % (0.0-3.0) 08/16/17 06:00 Gran # 3.78 (1.4-6.5) 08/16/17 06:00 Lymph # 1.3 (1.2-3.4) 08/16/17 06:00 Bulloch # 0.5 (0.1-0.6) 08/16/17 06:00 Eos # 0.1 (0.0-0.7) 08/16/17 06:00 Baso # 0.02 K/mm3 (0.0-2.0) 08/16/17 06:00 PT 15.8 SECONDS (9.4-12.5) H 08/14/17 04:15 INR 1.43 (0.93-1.08) H 08/14/17 04:15 APTT 34.1 Seconds (25.1-36.5) 08/14/17 04:15 Sodium 135 mmol/L (132-148) 08/16/17 06:00 Potassium 4.3 mmol/L (3.6-5.0) 08/16/17 06:00 Chloride 100 mmol/L (95-110) 08/16/17 06:00 Carbon Dioxide 30 mmol/L (21-33) 08/16/17 06:00 Anion Gap 9 (10-20) L 08/16/17 06:00 BUN 32 mg/dL (7-21) H 08/16/17 06:00 Creatinine 1.4 mg/dL (0.8-1.5) 08/16/17 06:00 Est GFR ( Amer) 59 08/16/17 06:00 Est GFR (Non-Af Amer) 49 08/16/17 06:00 POC Glucose (mg/dL) 268 mg/dL (65-110) H 08/16/17 13:07 Random Glucose 207 mg/dL (70-110) H 08/16/17 06:00 Calcium 8.8 mg/dL (8.4-10.5) 08/16/17 06:00 Phosphorus 3.0 mg/dL (2.5-4.5) 08/16/17 06:00 Magnesium 2.0 mg/dL (1.7-2.2) 08/16/17 06:00 Total Bilirubin 1.2 mg/dL (0.2-1.3) 08/16/17 06:00 AST 28 U/L (17-59) 08/16/17 06:00 ALT 37 U/L (7-56) 08/16/17 06:00 Alkaline Phosphatase 132 U/L (38-126) H 08/16/17 06:00 Lactate Dehydrogenase 440 U/L (333-699) 08/14/17 21:41 Total Creatine Kinase 51 U/L (35-230) 08/14/17 21:41 Troponin I 0.12 ng/mL 08/14/17 21:41 NT-Pro-B Natriuret Pep 2980 pg/mL (0-450) H 08/14/17 10:05 Total Protein 6.4 g/dL (5.8-8.3) 08/16/17 06:00 Albumin 3.5 g/dL (3.0-4.8) 08/16/17 06:00 Globulin 2.9 gm/dL 08/16/17 06:00 Albumin/Globulin Ratio 1.2 (1.1-1.8) 08/16/17 06:00 Lipase 71 U/L (23-300) 08/14/17 04:15 Procalcitonin 0.14 NG/ML (0.19-0.49) L 08/15/17 08:00 Urine Color Yellow (YELLOW) 08/15/17 03:00 Urine Appearance Clear (CLEAR) 08/15/17 03:00 Urine pH 6.0 (4.7-8.0) 08/15/17 03:00 Ur Specific Mark 1.025 (1.005-1.035) 08/15/17 03:00 Urine Protein 30 mg/dL (<30 mg/dL) H 08/15/17 03:00 Urine Glucose (UA) Negative mg/dL (NEGATIVE) 08/15/17 03:00 Urine Ketones 15 mg/dL (NEGATIVE) H 08/15/17 03:00 Urine Blood Negative (NEGATIVE) 08/15/17 03:00 Urine Nitrate Negative (NEGATIVE) 08/15/17 03:00 Urine Bilirubin Negative (NEGATIVE) 08/15/17 03:00 Urine Urobilinogen 1.0 E.U./dL (<1 E.U./dL) H 08/15/17 03:00 Ur Leukocyte Esterase Negative Fartun/uL (NEGATIVE) 08/15/17 03:00 Urine RBC 0 - 2 /hpf (0-2) 08/15/17 03:00 Urine WBC 1 - 3 /hpf (0-6) 08/15/17 03:00 Ur Epithelial Cells 1 - 3 /hpf (0-5) 08/15/17 03:00 Urine Bacteria Few (NEG) 08/15/17 03:00 Digoxin 0.9 ng/mL (0.8-2.0) 08/16/17 06:00 Attending/Attestation - Attestation I have personally seen and examined this patient.: Yes I have fully participated in the care of the patient.: Yes I have reviewed all pertinent clinical information, including history, physical exam and plan: Yes Notes (Text): I have seen and examined the patient at bedside. Agree with the above note with the following additions/ exceptions: Briefly this is 82 year old male with history of CAD s/p stent, CKD, 60-79% left ICA stenosis and 20-39% right ICA stenosis, CHF secondary to systolic dysfunction (EF~20-25%), AICD, DM-2, glaucoma, chronic atrial fibrillation not on anti cogulation due to GI bleed who was brought for evaluation of abdominal pain most likely due to biliary colic. Today abdominal pain has resolved. He had temp of 100.8 2 days ago. Cultures obtained which have been negative. Procal is low. CXR did not show any infiltrate. LE US negative . Patient overall feels well and denies any complaints. Discussed with Dr Hi who recommended to hold aspirin and plavix. Start eliquis today for watchman's procedure. Patient has stable CKD. Upon discharge patient will follow up with Dr Keenan Gold
[2017-08-16] MEDS: Digoxin 125 mcg (0.125 mg) Tab PO SCH (13:15)
[2017-08-16] MEDS: Levothyroxine 75 MCG TAB PO SCH (13:15)
[2017-08-16] MEDS: Pantoprazole 40 mg EC Tab PO SCH (13:15)
[2017-08-16 13:24] VITALS: PULSE 76
--- NOTE | 2017-08-16 13:29 | PN ---
DATE: 08/16/2017 SUBJECTIVE: The patient is seen lying in bed on 5R. He is feeling more comfortable. He denies any abdominal pain. He denies any dyspnea at rest. CURRENT MEDICATIONS: Include, Aldactone 25 mg daily, carvedilol 6.25 mg b.i.d., aspirin 81 mg daily, insulin coverage, digoxin 0.125 mg daily, Lasix 40 mg daily, Lipitor 20 mg daily, Protonix 40 mg daily and Synthroid 75 mcg daily. PHYSICAL EXAMINATION GENERAL: He is an elderly man who appears comfortable at rest. VITAL SIGNS: His blood pressure is 106/64 with pulse of 76, and irregularly irregular, and respirations are 14. HEENT: No JVD. CHEST: Bilateral scattered rhonchi. HEART: PMI displaced laterally with soft tones noted. Systolic murmur in the left sternal border and apex. ABDOMEN: Soft and mildly distended with normoactive bowel sounds. EXTREMITIES: Trace ankle edema. DIAGNOSTIC DATA: Potassium of 4.3 and BUN and creatinine are 32 and 1.4. White count is 5.7, hemoglobin and hematocrit are 9.8 and 30.6 with a platelet count of 105,000. IMPRESSION: 1. Abdominal pain, improved, possibly secondary to cholelithiasis. 2. Severe left ventricular systolic dysfunction secondary to ischemic cardiomyopathy, clinically stable at present. 3. Persistent atrial fibrillation being evaluated for placement of a Watchman device. 4. Inability to tolerate chronic anticoagulation because of recurrent gastrointestinal bleeding. 5. Rest of problems as noted. RECOMMENDATIONS: From a cardiac standpoint, he appears stable for discharge at this time. As no further invasive procedures are planned, he will began on Eliquis 5 mg b.i.d. Aspirin and Plavix will be withheld. He was tentatively scheduled for transesophageal echocardiogram within next several days in preparation for placement of the Watchman device. These plans will be modified and arranged as quickly as possible to limit his time on anticoagulant therapy. Close outpatient followup will be arranged as well. Yogi Taylor MD
--- NOTE | 2017-08-16 16:59 | CP.PCM.PN ---
Subjective - Date & Time of Evaluation Date of Evaluation: 08/16/17 Time of Evaluation: 11:20 - Subjective Subjective: Seen and examined at the bedside earlier today.patient denies nausea, vomiting, or abdominal pain. Tolerating oral intake. Denies shortness of breath or chest pain. Objective - Vital Signs/Intake and Output Vital Signs (last 24 hours): Temp Pulse Resp BP Pulse Ox 97.9 F 75 16 109/64 99 08/16/17 06:00 08/16/17 13:13 08/16/17 06:00 08/16/17 13:13 08/16/17 06:00 Intake and Output: 08/16/17 08/16/17 06:59 18:59 Intake Total 337 480 Balance 337 480 - Medications Medications: Current Medications Apixaban (Eliquis) 5 mg PO BID [facility] PRN Reason: Protocol Aspirin (Ecotrin) 81 mg PO DAILY [facility] Last Admin: 08/15/17 09:17 Dose: 81 mg Atorvastatin Calcium (Lipitor) 20 mg PO DAILY [facility] Last Admin: 08/16/17 13:16 Dose: 20 mg Carvedilol (Coreg) 6.25 mg PO BID [facility] Last Admin: 08/16/17 13:13 Dose: 6.25 mg Cholecalciferol (Vitamin D) 1,000 iu PO DAILY [facility] Last Admin: 08/16/17 13:15 Dose: 1,000 iu Digoxin (Lanoxin) 0.125 mg PO DAILY [facility] Last Admin: 08/16/17 13:15 Dose: 0.125 mg Docusate Sodium (Colace) 100 mg PO BID [facility] Last Admin: 08/16/17 13:14 Dose: 100 mg Furosemide (Lasix) 40 mg PO DAILY [facility] Last Admin: 08/16/17 13:12 Dose: 40 mg Insulin Human Regular (Humulin R Low) 0 units SC ACHS [facility] PRN Reason: Protocol Last Admin: 08/16/17 13:16 Dose: 3 units Levothyroxine Sodium (Synthroid) 75 mcg PO DAILY [facility] Last Admin: 08/16/17 13:15 Dose: 75 mcg Ondansetron HCl (Zofran Inj) 4 mg IVP Q4H PRN PRN Reason: Nausea/Vomiting Pantoprazole Sodium (Protonix Ec Tab) 40 mg PO DAILY [facility] Last Admin: 08/16/17 13:15 Dose: 40 mg Spironolactone (Aldactone) 25 mg PO DAILY [facility] Last Admin: 08/16/17 13:12 Dose: Not Given - Labs Labs: 08/16/17 06:00 08/16/17 06:00 PT 15.8 SECONDS (9.4-12.5) H 08/14/17 04:15 INR 1.43 (0.93-1.08) H 08/14/17 04:15 APTT 34.1 Seconds (25.1-36.5) 08/14/17 04:15 - Constitutional Appears: No Acute Distress - Head Exam Head Exam: NORMOCEPHALIC - Eye Exam Eye Exam: Normal appearance. absent: Scleral icterus - ENT Exam ENT Exam: Mucous Membranes Moist - Respiratory Exam Respiratory Exam: NORMAL BREATHING PATTERN. absent: Respiratory Distress - Cardiovascular Exam Cardiovascular Exam: +S1, +S2 - GI/Abdominal Exam GI & Abdominal Exam: Soft, Normal Bowel Sounds. absent: Guarding, Tenderness, Rebound - Extremities Exam Extremities Exam: Normal Capillary Refill. absent: Calf Tenderness - Neurological Exam Neurological Exam: Alert, Awake, Oriented x3 - Skin Skin Exam: Dry, Warm Assessment and Plan - Assessment and Plan (Free Text) Assessment: Assessment: Abdominal pain / Epigastric, differential to consider, gallstones, hepatic congestion, PUD Elevated troponins Elevated LFT, differentials to consider is hepatic congestion, poor EF 25%, CHF vs CBD stone, patient w/ elevated TB/ALk phos, patient had abdominal US, CBD not dilated on evidence of cholecystitis. History of AICD Multiple gallstones w/ sludge, no evidence of cholecystitis Diabetes mellitus type 2 Elevated BNP, history of CHF Plan: continue heart healthy diet Continue Protonix On Plavix and Aspirin On Aldactone, lasix DVT:SCD trend lft as per cardiology pending stool studies, no current diarrhea Patient abdominal pain improved, discussed with patient and medical team, LFTs improving, may have been related to hepatic congestion. Patient will be discharged home today, discussed with patient can follow up as an outpatient. Seen and discussed with Dr. Baker.
[2017-08-16 17:18] VITALS: BP 127/79; PULSE 18; RESP 20; TEMP 98.8; O2SAT 94
== END 2017-08-16 19:00 | disposition home or self-care (01) | DRG 445 ==
LOC: ED 03:19 → ERH 05:46 → 2RSO 07:54 → OBSVTOIN 08-15 13:47 → 5RNO 08-16 09:43
PROVIDERS: ADMIT Hospitalist; ATTEND Hospitalist
DX: K80.20 Calculus of gallbladder without cholecystitis without obstruction (principal); K92.2 Gastrointestinal hemorrhage, unspecified; R18.8 Other ascites; E10.22 Type 1 diabetes mellitus with diabetic chronic kidney disease; I48.1 Persistent atrial fibrillation; I13.0 Hypertensive heart and chronic kidney disease with heart failure and stage 1 through stage 4 chronic kidney disease, or unspecified chronic kidney disease; I50.22 Chronic systolic (congestive) heart failure; I50.20 Unspecified systolic (congestive) heart failure; I48.2 Chronic atrial fibrillation; I65.23 Occlusion and stenosis of bilateral carotid arteries; I67.9 Cerebrovascular disease, unspecified; M10.9 Gout, unspecified; N18.9 Chronic kidney disease, unspecified; Z79.01 Long term (current) use of anticoagulants; Z79.02 Long term (current) use of antithrombotics/antiplatelets; Z79.4 Long term (current) use of insulin; Z79.82 Long term (current) use of aspirin; I34.0 Nonrheumatic mitral (valve) insufficiency; I25.5 Ischemic cardiomyopathy; I25.2 Old myocardial infarction; I25.10 Atherosclerotic heart disease of native coronary artery without angina pectoris; H40.9 Unspecified glaucoma; E78.5 Hyperlipidemia, unspecified; Z79.899 Other long term (current) drug therapy; Z86.73 Personal history of transient ischemic attack (TIA), and cerebral infarction without residual deficits; Z95.5 Presence of coronary angioplasty implant and graft; Z95.810 Presence of automatic (implantable) cardiac defibrillator; Z95.0 Presence of cardiac pacemaker

== ENCOUNTER 2018-02-07 10:12 | Inpatient (IN) | payer MEDICARE, BC ==
--- NOTE | 2018-02-07 10:38 | ED PDOC ---
Arrival/HPI - General Chief Complaint: Shortness Of Breath Time Seen by Provider: 02/07/18 10:18 Historian: Patient, Family - History of Present Illness Narrative History of Present Illness (Text): 02/07/18 10:22 A 82 year old male, whose past medical history includes diabetes, CHF (not taking blood thinners, taking Protonix), kidney disease, pacemaker myocardial infarction, defibrillator, and coronary artery disease, presents to the emergency department complaining of shortness of breath since last night. Patient reports symptom worsens when ambulating. Notes also experiencing chills. Patient denies any fever, cough, body aches, or any other complaints at this time. Also, patient mentions never having used breathing treatments. Blood sugar in the ER is currently 214. PMD: Dr. Hussein Armhole Baster Hand: Dr. Parrish Past Medical History - Provider Review Nursing Documentation Reviewed: Yes - Infectious Disease Hx of Infectious Diseases: None - Tetanus Immunization Tetanus Immunization: Unknown - Cardiac Hx Cardiac Disorders: Yes (cad) Hx Cardiac Arrhythmia: Yes Hx Hypertension: Yes Hx Internal Defibrillator: Yes Hx Pacemaker: Yes (Left Chest) - Pulmonary Hx Respiratory Disorders: No - Neurological Hx Neurological Disorder: Yes HX Cerebrovascular Accident: Yes Hx Dizziness: Yes (vertigo) - HEENT Hx HEENT Disorder: Yes Hx Glaucoma: Yes - Renal Hx Renal Disorder: No - Endocrine/Metabolic Hx Endocrine Disorders: Yes Hx Diabetes Mellitus Type 1: Yes - Hematological/Oncological Hx Blood Disorders: Yes Hx Anemia: Yes - Integumentary Hx Dermatological Disorder: No - Musculoskeletal/Rheumatological Hx Falls: No - Gastrointestinal Hx Gastrointestinal Disorders: Yes (gi bleed) - Genitourinary/Gynecological Hx Genitourinary Disorders: No - Psychiatric Hx Psychophysiologic Disorder: No Hx Substance Use: No - Surgical History Hx Coronary Stent: Yes Other/Comment: cardiac stent, pacemaker - Anesthesia Hx Anesthesia: Yes Hx Anesthesia Reactions: No Hx Malignant Hyperthermia: No - Suicidal Assessment Feels Threatened In Home Enviroment: No Family/Social History - Physician Review Nursing Documentation Reviewed: Yes Family/Social History: No Known Family HX Smoking Status: Never Smoked Hx Alcohol Use: No Hx Substance Use: No Hx Substance Use Treatment: No Allergies/Home Meds Allergies/Adverse Reactions: Allergies No Known Allergies Allergy (Verified 02/07/18 14:09) Home Medications: Home Meds Medication Instructions Recorded Confirmed Carvedilol [Coreg] 3.125 mg PO BID 05/17/15 02/07/18 Levothyroxine Sodium [Synthroid] 100 mg PO DAILY 05/17/15 02/07/18 Nitroglycerin [Nitrostat] 0.4 mg SL PRN PRN 05/17/15 02/07/18 Atorvastatin [Lipitor] 20 mg PO DAILY 06/15/17 02/07/18 Digoxin 0.125 mg PO DAILY 06/15/17 02/07/18 Pantoprazole [Protonix EC Tab] 40 mg PO DAILY 06/15/17 02/07/18 Clopidogrel [Plavix] 75 mg PO DAILY 02/07/18 02/07/18 Donepezil [Aricept] 5 mg PO DAILY 02/07/18 02/07/18 Famotidine [Pepcid] 40 mg PO HS 02/07/18 02/07/18 Insulin Aspart, Recombinant 100 units SC ACHS 02/07/18 02/07/18 [Novolog] Sacubitril/Valsartan [Entresto 24 1 tab PO BID 02/07/18 02/07/18 mg-26 mg] Sennosides [Senna] 8.6 mg PO DAILY 02/07/18 02/07/18 Review of Systems - Physician Review All systems were reviewed & negative as marked: Yes - Review of Systems Constitutional: Night Sweats. absent: Fevers Respiratory: SOB. absent: Cough Musculoskeletal: absent: Myalgias Physical Exam Vital Signs Reviewed: Yes Vital Signs Temp Pulse Resp BP Pulse Ox 02/07/18 14:54 98.1 F 75 16 116/55 L 02/07/18 14:28 98.0 F 78 17 119/56 L 02/07/18 12:02 77 22 110/59 L 98 02/07/18 10:57 124/68 02/07/18 10:12 98.4 F 79 20 124/68 100 Temperature: Afebrile Blood Pressure: Normal Pulse: Regular Respiratory Rate: Normal Appearance: Positive for: Well-Appearing Pain Distress: None Mental Status: Positive for: Alert and Oriented X 3 - Systems Exam Head: Present: Atraumatic, Normocephalic Pupils: Present: PERRL Extroacular Muscles: Present: EOMI Conjunctiva: Present: Normal Mouth: Present: Moist Mucous Membranes Neck: No: JVD Respiratory/Chest: Present: Clear to Auscultation, Other (lower left lung crackles). No: Wheezes Cardiovascular: Present: Regular Rate and Rhythm, Normal S1, S2. No: Murmurs Abdomen: No: Tenderness, Distention, Peritoneal Signs Back: Present: Normal Inspection Upper Extremity: Present: Normal Inspection. No: Cyanosis, Edema Lower Extremity: Present: Normal Inspection. No: Edema Neurological: Present: GCS=15, CN II-XII Intact, Speech Normal Skin: Present: Warm, Dry, Normal Color. No: Rashes Psychiatric: Present: Alert, Oriented x 3, Normal Insight, Normal Concentration Medical Decision Making ED Course and Treatment: 02/07/18 10:26 Impression: 82 year old male with shortness of breath. Physical exam shows left lower crackles in lungs, otherwise lungs are clear, no wheezing; no JVD to neck ; no lower extremity edema. Differential Diagnosis included but are not limited to: CHF vs Anemia Plan: -- EKG -- Chest X-ray -- Labs -- Aspirin -- Lasix -- Rapid Flu Test -- Urinalysis -- Reassess and disposition Prior Visits: Notes and results from previous visits were reviewed. Patient was last seen in the emergency department on 08/14/2017 for upper abdominal pain and chest pain. Patient was admitted. Progress Notes: EKG: Ordered, reviewed, and independently interpreted the EKG. Rate : 70 BPM Rhythm : Pacemaker Interpretation : No ST-segment elevations, ST depressions present from V4-V6.. Comparison : No changes from 08/15/2017. 02/07/2018 11:16 Chest X-ray IMPRESSION: No acute cardiopulmonary disease. Dictator: Nakul Rudy 02/07/18 12:07 Patient is found to be anemic at 7.0 hgb. Type and Cross sent. 1 unit of PRBC ordered and then recommend revaluation since patient is in CHF Exacerbation. Consent was obtained by me and witnessed by Dr. Simpson. Rectal exam showed. Normal external. no hemorrohids or fissures. Brown stool. + guiaic on one field. Case discussed with Dr. Simpson, Hospitalist, who admits for the hospitalist. Consults were placed for Dr. Taylor, Cardiology and Dr. Baker, GI physician. Troponin elevated. Case discussed with Dr. Taylor, whom requests to hold Plavix and Aspirin. Aspirin was held. Patient took it this morning. Patient admitted to Telemetry for GI Bleed, Symptomatic Anemia, and CHF. - Critical Care Critical Care Minutes: 30 minutes - Lab Interpretations Lab Results: 02/07/18 10:50 02/07/18 10:50 Lab Results 02/07/18 11:30: Urine Color Yellow, Urine Appearance Clear, Urine pH 6.0, Ur Specific [place] 1.015, Urine Protein Trace H, Urine Glucose (UA) Negative, Urine Ketones Negative, Urine Blood Negative, Urine Nitrate Negative, Urine Bilirubin Negative, Urine Urobilinogen 0.2, Ur Leukocyte Esterase Negative, Urine RBC 0 - 2, Urine WBC 1 - 3, Ur Epithelial Cells None, Urine Bacteria Few 02/07/18 10:50: Influenza Typ A,B (EIA) Negative for flu a/b 02/07/18 10:50: Sodium 143, Potassium 4.2, Chloride 105, Carbon Dioxide 26, Anion Gap 16, BUN 34 H, Creatinine 1.3, Est GFR ( Amer) > 60, Est GFR ( Non-Af Amer) 53, Random Glucose 191 H, Calcium 9.0, Magnesium 2.4 H, Total Bilirubin 0.7, AST 32, ALT 33, Alkaline Phosphatase 153 H, Lactate Dehydrogenase 545, Total Creatine Kinase 63, Troponin I 0.12, NT-Pro-B Natriuret Pep 2620 H, Total Protein 6.8, Albumin 3.9, Globulin 2.9, Albumin/ Globulin Ratio 1.4 02/07/18 10:50: PT 13.9 H, INR 1.20 H, APTT 30.7 02/07/18 10:50: WBC 5.9, RBC 3.19 L, Hgb 7.0 L D, Hct 24.0 L, MCV 75.2 L D, MCH 21.9 L, MCHC 29.2 L, RDW 17.2 H, Plt Count 148, MPV 9.3, Gran % 75.4 H, Lymph % (Auto) 14.6 L, [place] % (Auto) 8.8 H, Eos % (Auto) 0.7 L, Baso % (Auto) 0.5, Gran # 4.44, Lymph # (Auto) 0.9 L, [place] # (Auto) 0.5, Eos # (Auto) 0.0, Baso # (Auto ) 0.03 02/07/18 10:24: POC Glucose (mg/dL) 214 H I have reviewed the lab results: Yes - RAD Interpretation Radiology Orders: 02/07/18 10:28 CHEST PORTABLE [RAD] Stat - Medication Orders Current Medication Orders: Atorvastatin Calcium (Lipitor) 20 mg PO DAILY [facility] Carvedilol (Coreg) 3.125 mg PO BID [facility] Last Admin: 02/07/18 17:11 Dose: 3.125 mg MAR Pulse and Blood Pressure Document 02/07/18 17:11 Talon (Rec: 02/07/18 17:11 [place] [id number]) Pulse Pulse Rate (60-90) 87 Blood Pressure Blood Pressure (100/60-150/90) 133/69 Digoxin (Digoxin) 0.125 mg PO DAILY [facility] Docusate Sodium (Colace) 100 mg PO BID PRN PRN Reason: Constipation Donepezil HCl (Aricept) 5 mg PO DAILY [facility] Furosemide (Lasix) 40 mg IVP DAILY [facility] Insulin Human Lispro (Humalog Med) 0 units SC ACHS [facility] PRN Reason: Protocol Last Admin: 02/07/18 17:10 Dose: 3 units MAR Blood Glucose Document 02/07/18 17:10 Talon (Rec: 02/07/18 17:10 [place] [id number]) Blood Glucose Finger Stick Blood Glucose (70-120) 226 Subcutaneous Administrations Document 02/07/18 17:10 RADHA (Rec: 02/07/18 17:[address] [facility] [id number]) Injection Site MAR Injection Site Right Abdomen Charges for Administration # of Subcutaneous Administrations 1 Levothyroxine Sodium (Synthroid) 100 mcg PO DAILY [facility] Pantoprazole Sodium (Protonix Inj) 40 mg IVP Q12 [facility] Last Admin: 02/07/18 17:10 Dose: 40 mg Comments: As per ER Nurse: Evelina, she did not administer. As per ER charge nurse: she did not administer/ IVP Administration Document 02/07/18 17:10 RADHA (Rec: 02/07/18 17:[address] [id number]) Charges for Administration # of IVP Administrations 1 Sacubitril/Valsartan (Entresto 24 Mg-26 Mg Tablet) 1 each PO BID [facility] Last Admin: 02/07/18 17:12 Dose: 1 each Discontinued Medications Aspirin (Aspirin Chewable) 324 mg PO STAT STA Stop: 02/07/18 10:29 Last Admin: 02/07/18 11:06 Dose: Furosemide (Lasix) 40 mg IVP STAT STA Stop: 02/07/18 10:29 Last Admin: 02/07/18 10:57 Dose: 40 mg MAR Blood Pressure Document 02/07/18 10:57 SRE (Rec: 02/07/18 10:58 SRE [id number]) Blood Pressure Blood Pressure (100/60-150/90) 124/68 IVP Administration Document 02/07/18 10:57 SRE (Rec: 02/07/18 10:58 SRE [id number]) Charges for Administration # of IVP Administrations 1 Pneumococcal Polyvalent Vaccine (Pneumovax 23 Vaccine) 0.5 ml IM .ONCE ONE Stop: 02/07/18 16:55 Last Admin: 02/07/18 17:18 Dose: Comments: up to date: Dr. Hussein Immunization Registry Document 02/07/18 17:18 RADHA (Rec: 02/07/18 17:18 RADHA [id number]) Immunization Registry Consent Date 02/07/18 - Scribe Statement The provider has reviewed the documentation as recorded by the Shannon Flores Provider Scribe Attestation: All medical record entries made by the Jayibiveth were at my direction and personally dictated by me. I have reviewed the chart and agree that the record accurately reflects my personal performance of the history, physical exam, medical decision making, and the department course for this patient. I have also personally directed, reviewed, and agree with the discharge instructions and disposition. Disposition/Present on Arrival - Present on Arrival Any Indicators Present on Arrival: Yes History of DVT/PE: No History of Uncontrolled Diabetes: Yes Urinary Catheter: No History of Decub. Ulcer: No History Surgical Site Infection Following: None - Disposition Have Diagnosis and Disposition been Completed?: Yes Diagnosis: Congestive heart failure (CHF), Symptomatic anemia, GI bleed Disposition: HOSPITALIZED Disposition Time: 12:13 Patient Plan: Admission Condition: GUARDED
[2018-02-07 11:01] LABS: BASO # 0.03 K/mm3 (0.0-2.0); BASO % 0.5 % (0.0-3.0); EOS % 0.7 % (1.5-5.0); GRAN # 4.44 (1.4-6.5); GRAN % 75.4 % (50.0-68.0); LYMPH # 0.9 (1.2-3.4); LYMPH % 14.6 % (22.0-35.0); MEAN CELL VOLUME 75.2 fl (80.0-105.0); MEAN CORPUSCULAR HEMOGLOBIN 21.9 pg (25.0-35.0); MEAN CORPUSCULAR HGB CONC 29.2 g/dl (31.0-37.0); MEAN PLATELET VOLUME 9.3 fl (7.0-11.0); MONO # 0.5 (0.1-0.6); MONO % 8.8 % (1.0-6.0); RBC 3.19 10^6/uL (3.5-6.1); RED CELL DISTRIBUTION WIDTH 17.2 % (11.5-14.5); WHITE BLOOD COUNT 5.9 10^3/ul (4.5-11.0)
[2018-02-07 11:13] LABS: INR 1.2 (0.93-1.08); PARTIAL THROMBOPLASTIN TIME 30.7 Seconds (25.1-36.5); PROTHROMBIN TIME 13.9 SECONDS (9.4-12.5)
--- NOTE | 2018-02-07 11:18 | RAD ---
HISTORY: chf/sob COMPARISON: Comparison chest dated 08/15/2017 FINDINGS: LUNGS: No acute consolidation. PLEURA: No significant pleural effusion identified, no pneumothorax apparent. CARDIOVASCULAR: No change single lead pacemaker. Heart remains enlarged. Aorta ectatic and uncoiled. OSSEOUS STRUCTURES: No significant abnormalities. VISUALIZED UPPER ABDOMEN: Normal. OTHER FINDINGS: None. IMPRESSION: No acute cardiopulmonary disease.
[2018-02-07 11:42] LABS: URINE BILIRUBIN NEGATIVE (NEGATIVE); URINE BLOOD NEGATIVE (NEGATIVE); URINE GLUCOSE (UA) NEGATIVE (NEGATIVE); URINE LEUKOCYTE ESTERASE NEGATIVE Leu/uL (NEGATIVE); URINE PROTEIN TRACE mg/dL (<30 mg/dL); URINE UROBILINOGEN 0.2 E.U./dL (<1 E.U./dL)
[2018-02-07 11:44] LABS: URINE APPEARANCE CLEAR (CLEAR); URINE COLOR YELLOW (YELLOW)
[2018-02-07 11:53] LABS: URINE BACTERIA FEW (NEG); URINE RBC 0 - 2 /hpf (0-2)
[2018-02-07 12:21] LABS: ALB/GLOB RATIO 1.4 (1.1-1.8); ALBUMIN 3.9 g/dL (3.0-4.8); ALT/SGPT 33 U/L (7-56); AST/SGOT 32 U/L (17-59); BLOOD UREA NITROGEN 34 mg/dL (7-21); GFR AFRICAN-AMERICAN > 60; GFR NON-AFRICAN AMERICAN 53
[2018-02-07 12:59] LABS: B-TYPE NATRIURETIC PEPTIDE 2620 pg/mL (0-450); TROPONIN I 0.12 ng/mL
--- NOTE | 2018-02-07 13:03 | CP.PCM.HP ---
<Jadon Arango - Last Filed: 02/07/18 14:23> History of Present Illness - History of Present Illness History of Present Illness: Subjective: CC: SOB HPI: Patient is a 82 year old male with a past medical history of GI bleed, CHF EF 30%, Atrial Fibrillation, CAD, defibrillator, CAD, TIA's, and Type II Diabetes Mellitus who presents to the ED for evaluation and treatment of shortness of breath which began yesterday evening without a specific provoking event. States he is able to walk one block prior to requiring rest. Admits to increased generalized fatigue. Denies blood with bowel movements. Denies fever, chills, chest pain, abdominal pain, nausea, vomiting, diarrhea, constipation, and urinary symptoms. 12-point review of systems negative except as indicated in the HPI Past medical history: GI bleed, CHF EF 30%, Atrial Fibrillation, CAD, defibrillator, CAD, TIA's, and Type II Diabetes Mellitus Past surgical history: amulate procedure 09/2017, AICD ([employer] Model E160, 0283), Cardiac stent (~30 years ago), Cataract L eye Allergies: NKDA Social hx: Denies smoking or illicit drug use. Occasionally drinks (less than once a month) Medications: Please see MAR PMD: Cardiology: Dr. Hi Physical Examination: - Head Exam Head Exam: ATRAUMATIC, NORMOCEPHALIC - Constitutional Appears: Non-toxic, No Acute Distress - Head Exam Head Exam: ATRAUMATIC, NORMOCEPHALIC - Eye Exam Eye Exam: EOMI - ENT Exam ENT Exam: Mucous Membranes Moist - Respiratory Exam Respiratory Exam: CTA bilaterally - Cardiovascular Exam Cardiovascular Exam: +S1, +S2. absent: Systolic Murmur - GI/Abdominal Exam GI & Abdominal Exam: Normal Bowel Sounds, Soft, Non tender to palpation absent : Distended, Firm, Mass, Rebound, Rigid - Extremities Exam Extremities exam: Positive for: +2 bilateral lower extremities, Negative for: calf tenderness, pedal edema - Neurological Exam Neurological exam: Alert, Oriented x3 - Psychiatric Exam Psychiatric exam: Normal Affect, Normal Mood - Skin Skin Exam: Intact, Normal Color, Warm Assessment and Plan: Patient is a 82 year old male with a past medical history of GI bleed, CHF EF 30%, Atrial Fibrillation, CAD, defibrillator, CAD, TIA's, and Type II Diabetes Mellitus who was admitted for evaluation and treatment of shortness of breath. GI Bleed - Hgb reviewed, trended, and appreciated- Hgb 7.0 on admit - 1 unit pRBCS being transfused in ED - H and H q6 - protonix 40 IV q12 - GI consult- appreciate recommendations- they will determine patients diet CHF Exacerbation; Ischemic Cardiomyopathy - previous ECHO 12/12/2016 reviewed and appreciated- EF 30%, left ventricular function is moderately impaired - BNP on admission- 2620, repeat tomorrow - troponins 0.12, similar to late 2017, cardiac isoezymes x 3 q6h - lasix 40 IV daily - continue home entresto - cardiology consult- appreciate recommendations Hx of Atrial Fibrillation - EKG reviewed and appreciated- acclerated junctional rhythm HR 79 bpm, Qtc 433 - hold aspirin and plavix due to GI bleed - continue digoxin and carvedilol Hx of CAD with hx of Stent - continue Lipitor - hold aspirin as a GI bleed Hx of DM - hold home diabetic medications - fingersticks ACHS - [place] sliding Scale - when resuming diet restart on carb consistent Hx of Hypothyroidism - continue home synthroid Prophylaxis - DVT ppx- SCDs as pt is presumed to have GI bleed - GI ppx- protonix 40 IV BID Patient seen, case discussed with, and plan approved by attending physician, Dr. Simpson. Present on Admission - Present on Admission Any Indicators Present on Admission: No Past Patient History - Infectious Disease Hx of Infectious Diseases: None - Tetanus Immunizations Tetanus Immunization: Unknown - Past Social History Smoking Status: Never Smoked - CARDIAC Hx Cardiac Disorders: Yes (cad) Hx Cardia Arrhythmia: Yes Hx Hypertension: Yes Hx Internal Defibrillator: Yes Hx Pacemaker: Yes (Left Chest) - PULMONARY Hx Respiratory Disorders: No - NEUROLOGICAL Hx Neurological Disorder: Yes HX Cerebrovascular Accident: Yes Hx Dizziness: Yes (vertigo) - HEENT Hx HEENT Problems: Yes Hx Glaucoma: Yes - RENAL Hx Chronic Kidney Disease: No - ENDOCRINE/METABOLIC Hx Endocrine Disorders: Yes Hx Diabetes Mellitus Type 1: Yes - HEMATOLOGICAL/ONCOLOGICAL Hx Blood Disorders: Yes Hx Anemia: Yes - INTEGUMENTARY Hx Dermatological Problems: No - MUSCULOSKELETAL/RHEUMATOLOGICAL Hx Falls: No - GASTROINTESTINAL Hx Gastrointestinal Disorders: Yes (gi bleed) - GENITOURINARY/GYNECOLOGICAL Hx Genitourinary Disorders: No - PSYCHIATRIC Hx Psychophysiologic Disorder: No Hx Substance Use: No - SURGICAL HISTORY Hx Coronary Stent: Yes Other/Comment: cardiac stent, pacemaker - ANESTHESIA Hx Anesthesia: Yes Hx Anesthesia Reactions: No Hx Malignant Hyperthermia: No Meds Allergies/Adverse Reactions: Allergies Allergy/AdvReac Type Severity Reaction Status Date / Time No Known Allergies Allergy Verified 02/07/18 14:09 Results - Vital Signs Recent Vital Signs: Last Vital Signs Temp 98.4 F 02/07/18 10:12 Pulse 77 02/07/18 12:02 Resp 22 02/07/18 12:02 BP 110/59 L 02/07/18 12:02 Pulse Ox 98 02/07/18 12:02 - Labs Result Diagrams: 02/07/18 10:50 02/07/18 10:50 <Teri Simpson - Last Filed: 02/08/18 15:07> Results - Vital Signs Recent Vital Signs: Last Vital Signs Temp 98.7 F 02/08/18 13:40 Pulse 78 02/08/18 13:40 Resp 18 02/08/18 13:40 BP 118/65 02/08/18 13:40 Pulse Ox 99 02/08/18 10:52 - Labs Result Diagrams: 02/08/18 05:15 02/08/18 05:15 Labs: Laboratory Results - last 24 hr 02/07/18 02/07/18 02/07/18 12:43 16:05 17:05 WBC RBC Hgb Hct MCV MCH MCHC RDW Plt Count MPV Gran % Lymph % (Auto) [place] % (Auto) Eos % (Auto) Baso % (Auto) Gran # Lymph # (Auto) [place] # (Auto) Eos # (Auto) Baso # (Auto) Retic Count Sodium Potassium Chloride Carbon Dioxide Anion Gap BUN Creatinine Est GFR ( Amer) Est GFR (Non-Af Amer) POC Glucose (mg/dL) 226 H Random Glucose Calcium Iron TIBC % Saturation Ferritin Total Bilirubin AST ALT Alkaline Phosphatase Lactate Dehydrogenase 457 Total Creatine Kinase 56 Troponin I 0.11 NT-Pro-B Natriuret Pep Total Protein Albumin Globulin Albumin/Globulin Ratio Vitamin B12 Folate Stool Occult Blood Blood Type O POSITIVE Antibody Screen Negative Crossmatch See Detail BBK History Checked Patient has bt 02/07/18 02/07/18 02/07/18 19:21 19:21 21:42 WBC RBC Hgb 7.4 L Hct 24.8 L MCV MCH MCHC RDW Plt Count MPV Gran % Lymph % (Auto) [place] % (Auto) Eos % (Auto) Baso % (Auto) Gran # Lymph # (Auto) [place] # (Auto) Eos # (Auto) Baso # (Auto) Retic Count 1.12 Sodium Potassium Chloride Carbon Dioxide Anion Gap BUN Creatinine Est GFR ( Amer) Est GFR (Non-Af Amer) POC Glucose (mg/dL) 210 H Random Glucose Calcium Iron 32 L TIBC % Saturation Ferritin Total Bilirubin AST ALT Alkaline Phosphatase Lactate Dehydrogenase Total Creatine Kinase Troponin I NT-Pro-B Natriuret Pep Total Protein Albumin Globulin Albumin/Globulin Ratio Vitamin B12 Folate Stool Occult Blood Blood Type Antibody Screen Crossmatch BBK History Checked 02/07/18 02/08/18 02/08/18 22:42 02:45 05:15 WBC RBC Hgb 8.2 L Hct 26.9 L MCV MCH MCHC RDW Plt Count MPV Gran % Lymph % (Auto) [place] % (Auto) Eos % (Auto) Baso % (Auto) Gran # Lymph # (Auto) [place] # (Auto) Eos # (Auto) Baso # (Auto) Retic Count Sodium 140 Potassium 3.9 Chloride 104 Carbon Dioxide 28 Anion Gap 11 BUN 31 H Creatinine 1.2 Est GFR ( Amer) > 60 Est GFR (Non-Af Amer) 58 POC Glucose (mg/dL) Random Glucose 188 H Calcium 8.7 Iron TIBC % Saturation Ferritin 8.8 Total Bilirubin 0.8 AST 33 ALT 35 Alkaline Phosphatase 137 H Lactate Dehydrogenase 467 491 Total Creatine Kinase 54 Troponin I 0.12 NT-Pro-B Natriuret Pep Total Protein 6.3 Albumin 3.7 Globulin 2.6 Albumin/Globulin Ratio 1.5 Vitamin B12 645 Folate 13.6 Stool Occult Blood Blood Type Antibody Screen Crossmatch BBK History Checked 02/08/18 02/08/18 02/08/18 05:15 05:15 06:30 WBC 5.6 RBC 3.54 Hgb 8.0 L Hct 26.6 L MCV 75.1 L MCH 22.6 L MCHC 30.1 L RDW 17.2 H Plt Count 147 MPV 10.5 Gran % 66.5 Lymph % (Auto) 22.5 [place] % (Auto) 9.4 H Eos % (Auto) 0.9 L Baso % (Auto) 0.7 Gran # 3.73 Lymph # (Auto) 1.3 [place] # (Auto) 0.5 Eos # (Auto) 0.1 Baso # (Auto) 0.04 Retic Count Sodium Potassium Chloride Carbon Dioxide Anion Gap BUN Creatinine Est GFR ( Amer) Est GFR (Non-Af Amer) POC Glucose (mg/dL) Random Glucose Calcium Iron 36 L TIBC 390 % Saturation 9 L Ferritin Total Bilirubin AST ALT Alkaline Phosphatase Lactate Dehydrogenase Total Creatine Kinase Troponin I NT-Pro-B Natriuret Pep 2650 H Total Protein Albumin Globulin Albumin/Globulin Ratio Vitamin B12 Folate Stool Occult Blood Blood Type Antibody Screen Crossmatch BBK History Checked 02/08/18 02/08/18 02/08/18 08:24 11:12 11:18 WBC RBC Hgb Hct MCV MCH MCHC RDW Plt Count MPV Gran % Lymph % (Auto) [place] % (Auto) Eos % (Auto) Baso % (Auto) Gran # Lymph # (Auto) [place] # (Auto) Eos # (Auto) Baso # (Auto) Retic Count Sodium Potassium Chloride Carbon Dioxide Anion Gap BUN Creatinine Est GFR ( Amer) Est GFR (Non-Af Amer) POC Glucose (mg/dL) 175 H 247 H Random Glucose Calcium Iron TIBC % Saturation Ferritin Total Bilirubin AST ALT Alkaline Phosphatase Lactate Dehydrogenase Total Creatine Kinase Troponin I NT-Pro-B Natriuret Pep Total Protein Albumin Globulin Albumin/Globulin Ratio Vitamin B12 Folate Stool Occult Blood Negative Blood Type Antibody Screen Crossmatch BBK History Checked Attending/Attestation - Attestation I have personally seen and examined this patient.: Yes I have fully participated in the care of the patient.: Yes I have reviewed all pertinent clinical information: Yes Notes (Text): 02/08/18 15:00 Attending note ; Patient seen and examined with resident in the ER . Patient's daughters by the bedside. Patient is a 82 year old male with history of CAD s/p stent, CKD, 60-79% left ICA stenosis and 20-39% right ICA stenosis, CHF secondary to systolic dysfunction , AICD, DM-2, glaucoma, chronic atrial fibrillation not on anti cogulation due to GI bleed who was brought for evaluation of shortness of breath. Patient was found to be anemic with a hemoglobin of 7.0. Patient denied any significant GI bleeding. stool Guaiac was positive in the ER. Previous hemoglobin was 9.7 in 09/2017. Patient had previous EGD done November 2017 at [facility]. Found to have gastritis and H. pylori. H. pylori was not treated. Patient had last colonoscopy done on 12/28/16. 2 units PRBC transfusion ordered. Case discussed with GI in detail. Cardiomyopathy /atrial fibrillation ; currently rate controlled .Aspirin and Plavix on hold. Cardiology evaluation requested. Leg swelling/elevated BNP; continue IV Lasix. Poor systolic dysfunction with ejection fraction of 30%. The diagnosis and treatment plan discussed with patient and patient's family in detail. Upon discharge the patient will follow up with Dr. Hussein. 02/08/18 15:05 02/08/18 15:06
[2018-02-07] MEDS ORDERED: Pneumococcal 23-Valent Vaccine IM ONE (16:54)
[2018-02-07 16:55] VITALS: BMI 22.9
[2018-02-07] MEDS: Insulin Lispro (humaLOG) MEDIUM Coverage SC SCH ×2 (17:10→23:46)
[2018-02-07] MEDS: SACUBITRIL 24mg/VALSARTAN 26mg tab PO SCH (17:12)
[2018-02-07 17:43] LABS: TROPONIN I 0.11 ng/mL
[2018-02-07 19:29] LABS: HEMOGLOBIN 7.4 g/dL (14.0-18.0)
--- NOTE | 2018-02-07 22:21 | CARD ---
APPROVED REPORT EKG Measurement Heart [id number] <Conclusion> Consider Junctional rhythm Inferior infarct, age undetermined ST & T wave abnormality, consider lateral ischemia Abnormal ECG
[2018-02-07 23:11] LABS: TROPONIN I 0.12 ng/mL
[2018-02-08 03:40] LABS: HEMOGLOBIN 8.2 g/dL (14.0-18.0)
[2018-02-08 06:13] LABS: BASO # 0.04 K/mm3 (0.0-2.0); BASO % 0.7 % (0.0-3.0); EOS # 0.1 (0.0-0.7); EOS % 0.9 % (1.5-5.0); GRAN # 3.73 (1.4-6.5); GRAN % 66.5 % (50.0-68.0); LYMPH # 1.3 (1.2-3.4); LYMPH % 22.5 % (22.0-35.0); MEAN CELL VOLUME 75.1 fl (80.0-105.0); MEAN CORPUSCULAR HEMOGLOBIN 22.6 pg (25.0-35.0); MEAN CORPUSCULAR HGB CONC 30.1 g/dl (31.0-37.0); MEAN PLATELET VOLUME 10.5 fl (7.0-11.0); MONO # 0.5 (0.1-0.6); MONO % 9.4 % (1.0-6.0); RBC 3.54 10^6/uL (3.5-6.1); RED CELL DISTRIBUTION WIDTH 17.2 % (11.5-14.5); WHITE BLOOD COUNT 5.6 10^3/ul (4.5-11.0)
[2018-02-08 06:28] LABS: IRON 36 ug/dL (45-180)
[2018-02-08 06:36] LABS: ALB/GLOB RATIO 1.5 (1.1-1.8); ALBUMIN 3.7 g/dL (3.0-4.8); ALT/SGPT 35 U/L (7-56); AST/SGOT 33 U/L (17-59); BLOOD UREA NITROGEN 31 mg/dL (7-21); CALCIUM 8.7 mg/dL (8.4-10.5); GFR AFRICAN-AMERICAN > 60; GFR NON-AFRICAN AMERICAN 58
[2018-02-08 06:38] LABS: % IRON SATURATION 9 % (20-55); TOTAL IRON BINDING CAPACITY 390 ug/dL (261-462)
[2018-02-08] MEDS: Insulin Lispro (humaLOG) MEDIUM Coverage SC SCH ×4 (08:30→22:24)
[2018-02-08] MEDS ORDERED: Barium Sulfate Susp 2.1% w/v, 2.0% w/w 450 mL Bottle PO ONE (09:45)
--- NOTE | 2018-02-08 09:47 | CON ---
DATE: 02/07/2018 REASON FOR CONSULTATION: Severe anemia. HISTORY OF PRESENT ILLNESS: This is an 82-year-old patient with a past medical history of CHF, his ejection fraction around 30%, atrial fibrillation, coronary artery disease, status post defibrillator placement, TIAs, type 2 diabetes mellitus, history of left atrial appendiceal closure procedure done, status post AICD placement, was brought to the hospital for complaints of shortness of breath. Patient was found to be severely anemic, the hemoglobin was 7. Patient denies any bleeding per rectum, melena, or abdominal pain. Patient has a history of GI bleeding, massive bleeding in the past. More than 5 years ago, the patient was found to have a gastric ulcer, there is anemia and drop in blood count, presently, only on aspirin and Plavix. History of coronary artery disease. PAST MEDICAL HISTORY: Significant as above. History of TIA, AFib, he is status post defibrillator placement, diabetes mellitus. PAST SURGICAL HISTORY: Patient had a left atrial appendiceal closure procedure done. History of cardiac stent placed many years ago. Had a left cataract surgery done. SOCIAL HISTORY: He denies smoking. Alcohol, occasionally. REVIEW OF SYSTEMS: Positive as above. All other symptoms reviewed. PHYSICAL EXAMINATION: GENERAL: Patient is lying on the bed, not in acute distress. HEART: S1 and S2 heard. LUNGS: Bilateral air entry present. ABDOMEN: Soft. There is no tenderness. No mass. LABORATORY DATA: Hemoglobin 7, hematocrit 24, WBC 5.9, platelets 148, MCV 75, all along was normal. IMPRESSION: This is an 82-year-old patient admitted with severe anemia, symptomatic with hemoglobin of 7. Denies any bleeding per rectum or melena. Patient did have an endoscopy done by in November. He was found to have H.pylori gastritis,erosions. Chronic Afib sp watchmn procedure as patient is not a candidate for anticoagulation in view of GIB CAD CHF sp AICD h/o TIA CKD . RECOMMENDATIONS: 1. I did have detailed discussion with the patient's daughter who mentioned to me that the patient had endoscopy done by Dr. Mehta at the end of This patient is severely anemic, no obvious bleeding. It could be multifactorial etiology. Patient mentioned to me that in endoscopy done in November, was found to have H. pylori, gastritis, gastric erosions. H. pylori was not treated. Patient was on famotidine. Patient had a colonoscopy more than a year ago. No polyps were found.I will dw patients daughter reg the report Close followup of HB/hct aabd transfuse PPI Will get CT scan of abdomen and pelvis with Po contrast Repeat EGD to further evaluate after optimization prior to reatarting plavix We will continue to closely follow up his care and suggest further management based on the clinical course. Shaun Baker MD MTDD
--- NOTE | 2018-02-08 09:54 | CP.PCM.PN ---
<ArangoJadon stock - Last Filed: 02/08/18 11:49> Subjective - Date & Time of Evaluation Date of Evaluation: 02/08/18 Time of Evaluation: 07:40 - Subjective Subjective: Subjective: Patient seen and examined. No acute events overnight. Offers no complaints at this time. Spoke with daughter, Delmi, over the phone to update her on Mr. Foley's plan after attaining his permission to share medical information. All questions addressed. Denies fever, chills, chest pain, SOB, abdominal pain, N/V , diarrhea constipation, and urinary symptoms. 12 point ROS negative except as indicated in HPI. Physical Examination: - Head Exam Head Exam: ATRAUMATIC, NORMOCEPHALIC - Constitutional Appears: Non-toxic, No Acute Distress - Head Exam Head Exam: ATRAUMATIC, NORMOCEPHALIC - Eye Exam Eye Exam: EOMI - ENT Exam ENT Exam: Mucous Membranes Moist - Respiratory Exam Respiratory Exam: CTA bilaterally - Cardiovascular Exam Cardiovascular Exam: +S1, +S2. absent: Systolic Murmur - GI/Abdominal Exam GI & Abdominal Exam: Normal Bowel Sounds, Soft, Non tender to palpation absent : Distended, Firm, Mass, Rebound, Rigid - Extremities Exam Extremities exam: Positive for: +2 bilateral lower extremities, Negative for: calf tenderness, pedal edema - Neurological Exam Neurological exam: Alert, Oriented x3 - Psychiatric Exam Psychiatric exam: Normal Affect, Normal Mood - Skin Skin Exam: Intact, Normal Color, Warm Assessment and Plan: Patient is a 82 year old male with a past medical history of GI bleed, CHF EF 30%, Atrial Fibrillation, CAD, defibrillator, CAD, TIA's, and Type II Diabetes Mellitus who was admitted for evaluation and treatment of shortness of breath. Patient was found to have hemoglobin less than 7 and was transfused 2 units pRBCS since admission. GI Bleed - Hgb reviewed, trended, and appreciated- Hgb 7.0 on admit- trended to 8.2 and is 8.0 today - 1 unit pRBCS being transfused on 07/11 in the morning - protonix 40 IV q12 - GI consult- appreciate recommendations- they will determine patients diet, CT with oral contrast 02/08- ordered and pending, planning EGD on 02/09 CHF Exacerbation; Ischemic Cardiomyopathy - previous ECHO 12/12/2016 reviewed and appreciated- EF 30%, left ventricular function is moderately impaired - BNP on admission- 2620, BNP for 07/11 pending - troponins 0.12 -- 0.11 -- 0.12 - lasix 40 IV daily - continue home entresto - cardiology consult- appreciate recommendations Hx of Atrial Fibrillation - EKG reviewed and appreciated- accelerated junctional rhythm HR 79 bpm, Qtc 433 - hold aspirin and plavix due to GI bleed- will consider restarting after potential endoscopy on 02/09 - continue digoxin and carvedilol Hx of CAD with hx of Stent - continue Lipitor - hold aspirin as a GI bleed Hx of DM - hold home diabetic medications - fingersticks ACHS - [place] sliding Scale - when resuming diet restart on carb consistent Hx of Hypothyroidism - continue home synthroid Prophylaxis - DVT ppx- SCDs as pt is presumed to have GI bleed - GI ppx- protonix 40 IV BID Patient seen, case discussed with, and plan approved by attending physician, Dr. Simpson. Objective - Vital Signs/Intake and Output Vital Signs (last 24 hours): Temp Pulse Resp BP Pulse Ox 98.5 F 77 19 103/54 L 96 02/08/18 06:00 02/08/18 06:00 02/08/18 06:00 02/08/18 06:00 02/08/18 06:00 Intake and Output: 02/08/18 02/08/18 06:59 18:59 Intake Total 286 Output Total 500 Balance -214 - Medications Medications: Current Medications Atorvastatin Calcium (Lipitor) 20 mg PO DAILY [facility] Carvedilol (Coreg) 3.125 mg PO BID [facility] Last Admin: 02/07/18 17:11 Dose: 3.125 mg Digoxin (Digoxin) 0.125 mg PO DAILY [facility] Docusate Sodium (Colace) 100 mg PO BID PRN PRN Reason: Constipation Donepezil HCl (Aricept) 5 mg PO DAILY [facility] Furosemide (Lasix) 40 mg IVP DAILY [facility] Insulin Human Lispro (Humalog Med) 0 units SC ACHS [facility] PRN Reason: Protocol Last Admin: 02/08/18 08:30 Dose: 1 units Levothyroxine Sodium (Synthroid) 100 mcg PO DAILY [facility] Pantoprazole Sodium (Protonix Inj) 40 mg IVP Q12 [facility] Last Admin: 02/07/18 17:10 Dose: 40 mg Sacubitril/Valsartan (Entresto 24 Mg-26 Mg Tablet) 1 each PO BID [facility] Last Admin: 02/07/18 17:12 Dose: 1 each - Labs Labs: 02/08/18 05:15 02/08/18 05:15 PT 13.9 SECONDS (9.4-12.5) H 02/07/18 10:50 INR 1.20 (0.93-1.08) H 02/07/18 10:50 APTT 30.7 Seconds (25.1-36.5) 02/07/18 10:50 <Teri Simpson - Last Filed: 02/08/18 15:09> Objective - Vital Signs/Intake and Output Vital Signs (last 24 hours): Temp Pulse Resp BP Pulse Ox 98.7 F 78 18 118/65 99 02/08/18 13:40 02/08/18 13:40 02/08/18 13:40 02/08/18 13:40 02/08/18 10:52 Intake and Output: 02/08/18 02/08/18 06:59 18:59 Intake Total 286 440 Output Total 500 750 Balance -214 -310 - Medications Medications: Current Medications Atorvastatin Calcium (Lipitor) 20 mg PO DAILY [facility] Last Admin: 02/08/18 10:14 Dose: 20 mg Carvedilol (Coreg) 3.125 mg PO BID [facility] Last Admin: 02/08/18 10:15 Dose: 3.125 mg Digoxin (Digoxin) 0.125 mg PO DAILY [facility] Last Admin: 02/08/18 10:14 Dose: 0.125 mg Docusate Sodium (Colace) 100 mg PO BID PRN PRN Reason: Constipation Donepezil HCl (Aricept) 5 mg PO DAILY [facility] Last Admin: 02/08/18 10:14 Dose: 5 mg Furosemide (Lasix) 40 mg IVP DAILY [facility] Last Admin: 02/08/18 10:16 Dose: 40 mg Insulin Human Lispro (Humalog Med) 0 units SC ACHS [facility] PRN Reason: Protocol Last Admin: 02/08/18 12:24 Dose: 3 units Levothyroxine Sodium (Synthroid) 100 mcg PO DAILY [facility] Last Admin: 02/08/18 10:15 Dose: 100 mcg Pantoprazole Sodium (Protonix Inj) 40 mg IVP Q12 [facility] Last Admin: 02/08/18 10:16 Dose: 40 mg Sacubitril/Valsartan (Entresto 24 Mg-26 Mg Tablet) 1 each PO BID [facility] Last Admin: 02/08/18 10:16 Dose: 1 each - Labs Labs: 02/08/18 05:15 02/08/18 05:15 PT 13.9 SECONDS (9.4-12.5) H 02/07/18 10:50 INR 1.20 (0.93-1.08) H 02/07/18 10:50 APTT 30.7 Seconds (25.1-36.5) 02/07/18 10:50 Attending/Attestation - Attestation I have personally seen and examined this patient.: Yes I have fully participated in the care of the patient.: Yes I have reviewed all pertinent clinical information, including history, physical exam and plan: Yes Notes (Text): 02/08/18 15:08 Attending note ; Patient seen and examined with resident. Patient is a 82 year old male with history of CAD s/p stent, CKD, 60-79% left ICA stenosis and 20-39% right ICA stenosis, CHF secondary to systolic dysfunction , AICD, DM-2, glaucoma, chronic atrial fibrillation not on anti cogulation due to GI bleed who was brought for evaluation of shortness of breath. Patient was found to be anemic with a hemoglobin of 7.0. Status post 2 unit PRBC transfusion. Hemoglobin is 8.0. One more unit of blood transfusion ordered. Case discussed with Dr. Hernandez in detail. CT abdomen and pelvis with po contrast requested. Plan for EGD tomorrow afternoon. Clear liquid diet for breakfast. Nothing by mouth after that. Cardiomyopathy /atrial fibrillation ; currently rate controlled .Aspirin and Plavix on hold. Cardiology evaluation appreciated. Leg swelling/elevated BNP; continue IV Lasix. Poor systolic dysfunction with ejection fraction of 30%. The diagnosis and treatment plan discussed with patient and patient's family in detail. Upon discharge the patient will follow up with Dr. Hussein.
[2018-02-08] MEDS ORDERED: Levothyroxine 75 MCG TAB PO SCH (10:00)
[2018-02-08] MEDS: Digoxin 125 mcg (0.125 mg) Tab PO SCH (10:14)
[2018-02-08] MEDS: Levothyroxine 100 MCG TAB PO SCH (10:15)
[2018-02-08] MEDS: SACUBITRIL 24mg/VALSARTAN 26mg tab PO SCH ×2 (10:16→17:11)
[2018-02-08 13:22] LABS: FERRITIN 8.8 ng/mL
--- NOTE | 2018-02-08 13:28 | PQF ANEMIA ---
This form is a permanent part of the medical record Dr. Simpson, Patient was admitted with severe symptomatic anemia, transfused with 2 UPRBC. When determined, please specify type and acuity of anemia present (acute, chronic, blood loss anemia, anemia of chronic disease, etc). Clarification of your documentation is requested to better reflect the severity of illness and intensity of treatment of your patient. Indicators present [x] Anemia x] Drop in H&H from []___ to []___7.0/24.0 [] Hypotension [x] GI Bleed [x] Transfusion(s) 2 UPRBC [] Acute bleed other sites [] Tachycardia [] Surgical Procedure Blood Loss (expected not a complication) Other:[] Location in the medical record that reflects the above clinical findings: [] Treatment Provided: [] PHYSICIAN'S RESPONSE Based on your medical judgment of the clinical indicators outlined above, are you treating this patient for a known or suspected: [x] Acute blood loss anemia [] Chronic blood loss anemia [] Acute on Chronic blood loss anemia [] Anemia due to malignancy [] Anemia due to chemotherapy or radiation therapy [] Anemia of Chronic Disease, please specify: [] [] Other, please indicate type of anemia []____ [] If Unable to Determine, please check the box, sign and date. Present On Admission (POA) Indicator: [x] Present at the time of admission [] Not present at the time of admission [] Clinically Undetermined In responding to this query, please exercise your independent professional judgment. The fact that a question is asked does not imply that any particular answer is desired or expected. Thank you for your clarification on this documentation. If you have any questions please call:[ ] * Thank you, [ ]Jose Franz [facility] #[id number] corsetier [place]
[2018-02-08 13:52] LABS: FOLATE 13.6 ng/mL
--- NOTE | 2018-02-08 15:09 | CON ---
DATE: 02/08/2018 INDICATIONS: Shortness of breath, severe anemia. HISTORY OF PRESENT ILLNESS: This is an 82-year-old man, well known to our practice, admitted yesterday with increasing shortness of breath, found to have severe anemia with a hemoglobin of 7. He was admitted to telemetry. He has received 2 units of transfusion and feels much better this morning. There is no chest pain. He does not have shortness of breath today. There was no orthopnea, PND, syncope, presyncope, lightheadedness, dizziness, vertigo, palpitation, edema, claudication, fever, chills, cough, sputum production, hemoptysis, abdominal pain, nausea, vomiting, diarrhea, constipation or melena. PAST MEDICAL HISTORY: His past medical history is complex. He has known coronary artery disease, status post myocardial infarction with severe LV dysfunction. He has had congestive heart failure. He has an ICD. He has chronic atrial fibrillation, not anticoagulated because of recurrent GI bleeding. He has a history of diabetes, mild mitral regurgitation, hypertension, hyperlipidemia, cerebral vascular disease, possible TIA, gallstones and cataract surgery. MEDICATIONS AT THE TIME OF ADMISSION: Include Aricept, Coreg, digoxin, Entresto, Lasix, Lipitor, insulin, Pepcid, Plavix, Protonix, Senna, Synthroid, nitroglycerin p.r.n. ALLERGIES: THERE ARE NO MEDICATION ALLERGIES REPORTED. SOCIAL HISTORY: He lives at home. He does not smoke. He does not drink. He is ambulatory. FAMILY HISTORY: Noncontributory. REVIEW OF SYSTEMS: Ten-point review of systems is otherwise unremarkable except as noted above. PHYSICAL EXAMINATION GENERAL: He is a well-developed male, in no acute distress, lying in bed on telemetry. VITAL SIGNS: Notable for sinus rhythm, afebrile, blood pressure 103/54, respiratory rate 19, O2 sat 96% to 97% on room air and nasal cannula. HEENT: Reveals no neck vein distention, thyromegaly or carotid bruits. Mucous membranes moist. Conjunctivae pink. NECK: Supple. LUNGS: Lung greene, a few scattered rhonchi. HEART: Reveals normal first and second heart sounds. Irregular rhythm. PMI displaced laterally. ABDOMEN: Soft. Bowel sounds present. No mass, organomegaly, tenderness, rebound, guarding, CVA tenderness. No palpable abdominal aortic aneurysm. EXTREMITIES: Mild edema. NEUROLOGIC: Awake, alert and oriented. PSYCHIATRIC: Normal as to mood and affect. SKIN: Warm and dry. No rash or cellulitis. LABORATORY AND IMAGING: An EKG demonstrates atrial fibrillation, left axis deviation, poor R-wave progression, intraventricular conduction delay, ST-T wave changes consistent with ischemia. A chest x-ray reveals no acute cardiopulmonary disease. White count was normal. Initial hemoglobin 7, repeat 8 today. Hematocrit initially 24, repeat 26.6 today. Platelet counts are normal. PT 13.9, INR 1.2, PTT 30.7. Electrolytes: BUN and creatinine unremarkable. Blood sugars in the 200 range. Magnesium 2.4. LFTs are unremarkable. Troponins are negative x3. CKs are negative x3. BNP 2620. Urinalysis is noted. Influenza serology is negative. ASSESSMENT AND PLAN: Chase Foley is an 82-year-old man admitted with increasing shortness of breath, found to have severe anemia. He has a history of prior gastrointestinal bleeds. He is not on anticoagulation for chronic atrial fibrillation because of this. He has a Watchman device implanted. He has received 2 units of blood. His hemoglobin is 8 this morning. His aspirin and Plavix are on hold. He will have a GI evaluation. We will monitor stool for occult blood. We will continue Colace, Coreg, digoxin, Entresto, Lasix, Lipitor, Protonix, Synthroid. I will review his old records. I will discuss this case with Dr. Taylor. I have discussed this case with Dr. Simpson. Additional blood transfusions may be required. He will be on telemetry. We will monitor I's and O's and daily labs. I will follow along with you. I will make additional recommendations based on his clinical course. Ramakrishna Weiner MD MTDRoman
--- NOTE | 2018-02-08 17:06 | CT ---
PROCEDURE: CT Abdomen and Pelvis with contrast HISTORY: GI Bleed COMPARISON: Chest, abdomen and pelvis CT examination 08/14/2017. TECHNIQUE: Helical CT of the abdomen and pelvis was performed following oral contrast administration. Intravenous contrast was not administered as per referring physician request. Contrast dose: None Radiation dose: Total exam DLP = 415.37 mGy-cm. This CT exam was performed using one or more of the following dose reduction techniques: Automated exposure control, adjustment of the mA and/or kV according to patient size, and/or use of iterative reconstruction technique. FINDINGS: LOWER THORAX: A mild right pleural effusion is recurrent or has increased in volume. Trace pericardial effusion versus pericardial thickening noted which appears stable. Cardiomegaly again evident as well as pacemaker/implanted defibrillator leads and right heart. LIVER: Unremarkable. No gross lesion or ductal dilatation. GALLBLADDER AND BILE DUCTS: Cholelithiasis is again identified within a mildly distended gallbladder, unchanged in appearance. No gross CBD dilatation evident. PANCREAS: Unremarkable. No gross lesion or ductal dilatation. SPLEEN: Unremarkable. ADRENALS: 1.8 cm benign adrenal adenoma again seen left adrenal gland with the right adrenal gland unremarkable. KIDNEYS AND URETERS: Stable 2.2 cm lucency seen the upper pole left kidney. No obstructive uropathy or intrarenal CT radiodense calculi bilaterally. Nonspecific streaky perinephric changes appear stable bilaterally. VASCULATURE: Unremarkable. No aortic aneurysm. BOWEL: The stomach is mildly distended with retained food and limited oral contrast material. Evaluation of its wall is limited due lack of adequate distention. Mural thickening is difficult to completely exclude. Once again, there is no bowel obstruction pattern appreciated. Moderate fecal loading is seen at the distal colon with sigmoid diverticulosis again appreciated without definitive diverticulitis. A definitive mass is not clearly identified within opacified large bowel loops the large bowel is partially obscured by retained fecal material throughout its lumen. APPENDIX: Normal appendix. PERITONEUM: Trace fluid is nonspecific in the inferior abdomen pelvis extending minimally into the right inguinal canal. Developing bilateral the inguinal hernia is identified containing only fat. LYMPH NODES: Unremarkable. No enlarged lymph nodes. BLADDER: The urinary bladder is not fully distended limiting evaluation of its wall. Overall appearance the urinary bladder is stable. REPRODUCTIVE: Enlarged prostate gland again evident. BONES: No acute fracture. OTHER FINDINGS: None. IMPRESSION: 1. Sigmoid diverticulosis is again appreciated. No acute inflammatory changes are related that would indicate diverticulitis at this time. No gross large bowel mass appreciable however retained fecal material obscures evaluation of the colon somewhat. Mural thickening of the stomach is difficult to exclude however of the stomach is not fully distended. 2. Cholelithiasis reiterated. 3. Stable left adrenal adenoma. 4. Stable lucency upper pole left kidney. 5. Enlarged prostate gland.
[2018-02-09 05:55] LABS: BASO # 0.03 K/mm3 (0.0-2.0); BASO % 0.5 % (0.0-3.0); EOS # 0.1 (0.0-0.7); GRAN # 3.76 (1.4-6.5); GRAN % 65.5 % (50.0-68.0); HEMOGLOBIN 8.9 g/dL (14.0-18.0); LYMPH # 1.3 (1.2-3.4); LYMPH % 23.3 % (22.0-35.0); MEAN CELL VOLUME 76.3 fl (80.0-105.0); MEAN CORPUSCULAR HEMOGLOBIN 23.5 pg (25.0-35.0); MEAN CORPUSCULAR HGB CONC 30.8 g/dl (31.0-37.0); MEAN PLATELET VOLUME 9.8 fl (7.0-11.0); MONO # 0.6 (0.1-0.6); MONO % 9.7 % (1.0-6.0); RBC 3.79 10^6/uL (3.5-6.1); RED CELL DISTRIBUTION WIDTH 17.9 % (11.5-14.5); WHITE BLOOD COUNT 5.8 10^3/ul (4.5-11.0)
[2018-02-09 06:13] LABS: ALB/GLOB RATIO 1.4 (1.1-1.8); ALBUMIN 3.8 g/dL (3.0-4.8); ALT/SGPT 30 U/L (7-56); AST/SGOT 28 U/L (17-59); BLOOD UREA NITROGEN 26 mg/dL (7-21); GFR AFRICAN-AMERICAN > 60; GFR NON-AFRICAN AMERICAN > 60
[2018-02-09 06:21] LABS: B-TYPE NATRIURETIC PEPTIDE 2800 pg/mL (0-450)
--- NOTE | 2018-02-09 08:04 | CP.PCM.PN ---
Subjective - Date & Time of Evaluation Date of Evaluation: 02/09/18 Time of Evaluation: 07:00 - Subjective Subjective: Stable on 2R. No CP or SOB. S/P transfusions. V/S noted. V. Paced/A. Fib/Flutter PE: Lungs: clear Cor.: S1S2 Abd.: soft Ext.: no edema Neuro.: alert I/O = 1718/3325 labs noted: H/H = 8.9/28.9, BMP OK Stool for OB: Neg. CT a/p: noted. Objective - Vital Signs/Intake and Output Vital Signs (last 24 hours): Temp Pulse Resp BP Pulse Ox 99.3 F 77 20 116/58 L 96 02/09/18 06:00 02/09/18 06:00 02/09/18 06:00 02/09/18 06:00 02/09/18 06:00 Intake and Output: 02/09/18 02/09/18 06:59 18:59 Intake Total 240 Output Total 900 Balance -660 - Medications Medications: Current Medications Atorvastatin Calcium (Lipitor) 20 mg PO DAILY [facility] Last Admin: 02/08/18 10:14 Dose: 20 mg Carvedilol (Coreg) 3.125 mg PO BID [facility] Last Admin: 02/08/18 17:11 Dose: 3.125 mg Digoxin (Digoxin) 0.125 mg PO DAILY [facility] Last Admin: 02/08/18 10:14 Dose: 0.125 mg Docusate Sodium (Colace) 100 mg PO BID PRN PRN Reason: Constipation Donepezil HCl (Aricept) 5 mg PO DAILY [facility] Last Admin: 02/08/18 10:14 Dose: 5 mg Furosemide (Lasix) 40 mg IVP DAILY [facility] Last Admin: 02/08/18 10:16 Dose: 40 mg Insulin Human Lispro (Humalog Med) 0 units SC ACHS [facility] PRN Reason: Protocol Last Admin: 02/08/18 22:24 Dose: Not Given Levothyroxine Sodium (Synthroid) 100 mcg PO DAILY [facility] Last Admin: 02/08/18 10:15 Dose: 100 mcg Pantoprazole Sodium (Protonix Inj) 40 mg IVP Q12 [facility] Last Admin: 02/08/18 21:39 Dose: 40 mg Sacubitril/Valsartan (Entresto 24 Mg-26 Mg Tablet) 1 each PO BID [facility] Last Admin: 02/08/18 17:11 Dose: 1 each - Labs Labs: 02/09/18 05:15 02/09/18 05:15 PT 13.9 SECONDS (9.4-12.5) H 02/07/18 10:50 INR 1.20 (0.93-1.08) H 02/07/18 10:50 APTT 30.7 Seconds (25.1-36.5) 02/07/18 10:50 Assessment and Plan - Assessment and Plan (Free Text) Assessment: Dyspnea Anemia CAD/NE/Severe LVD/CHF Chronic AF/Flutter, no A/C b/o GIB ICD Diabetes MR, mild on echo HBP HLD CVD TIA Gall Stones Diverticulosis Cataract Surgery Plan: EGD today. IV > PO Lasix Monitor: labs, H/H, I/O, etc As per GI, Medical Team.
[2018-02-09] MEDS: Insulin Lispro (humaLOG) MEDIUM Coverage SC SCH ×4 (08:31→22:15)
--- NOTE | 2018-02-09 09:52 | CP.PCM.PN ---
<Jadon Arango - Last Filed: 02/09/18 12:38> Subjective - Date & Time of Evaluation Date of Evaluation: 02/09/18 Time of Evaluation: 09:15 - Subjective Subjective: Subjective: Patient seen and examined. No acute events overnight. States that his SOB has improved compared to baseline. Offers no complaints at this time. Denies fever , chills, chest pain, abdominal pain, N/V, diarrhea constipation, and urinary symptoms. 12 point ROS negative except as indicated in HPI. Physical Examination: - Head Exam Head Exam: ATRAUMATIC, NORMOCEPHALIC - Constitutional Appears: Non-toxic, No Acute Distress - Head Exam Head Exam: ATRAUMATIC, NORMOCEPHALIC - Eye Exam Eye Exam: EOMI - ENT Exam ENT Exam: Mucous Membranes Moist - Respiratory Exam Respiratory Exam: CTA bilaterally - Cardiovascular Exam Cardiovascular Exam: +S1, +S2. absent: Systolic Murmur - GI/Abdominal Exam GI & Abdominal Exam: Normal Bowel Sounds, Soft, Non tender to palpation absent : Distended, Firm, Mass, Rebound, Rigid - Extremities Exam Extremities exam: Positive for: +1 edema bilateral lower extremities, Negative for: calf tenderness, pedal edema - Neurological Exam Neurological exam: Alert, Oriented x3 - Psychiatric Exam Psychiatric exam: Normal Affect, Normal Mood - Skin Skin Exam: Intact, Normal Color, Warm Assessment and Plan: Patient is a 82 year old male with a past medical history of GI bleed, CHF EF 30%, Atrial Fibrillation, CAD, defibrillator, CAD, TIA's, and Type II Diabetes Mellitus who was admitted for evaluation and treatment of shortness of breath. Patient was found to have hemoglobin less than 7 and was transfused 3 units pRBCS since admission. GI Bleed - Hgb reviewed, trended, and appreciated- Hgb 7.0 on admit- trended to is 8.9 today s/p 3 units pRBCs - protonix 40 IV q12 - CT abdomen/pelvis reviewed and appreciated- 1. Sigmoid diverticulosis is again appreciated. No acute inflammatory changes are related that would indicate diverticulitis at this time. No gross large bowel mass appreciable however retained fecal material obscures evaluation of the colon somewhat. Mural thickening of the stomach is difficult to exclude however of the stomach is not fully distended. 2. Cholelithiasis reiterated. 3. Stable left adrenal adenoma. 4. Stable lucency upper pole left kidney. 5. Enlarged prostate gland. - GI consult- appreciate recommendations- planning EGD on 02/09 CHF Exacerbation; Ischemic Cardiomyopathy - previous ECHO 12/12/2016 reviewed and appreciated- EF 30%, left ventricular function is moderately impaired - BNP on admission- 2620, BNP elevated compared to admission secondary to trasfusing pRBCs- no clinical manifestation - troponins 0.12 -- 0.11 -- 0.12 - lasix 40 IV daily - continue home entresto - cardiology consult- appreciate recommendations- continue with IV lasixs Hx of Atrial Fibrillation - EKG reviewed and appreciated- accelerated junctional rhythm HR 79 bpm, Qtc 433 - hold aspirin and plavix due to GI bleed- will consider restarting after potential endoscopy on 02/09 - continue digoxin and carvedilol Hx of CAD with hx of Stent - continue Lipitor - hold aspirin as a GI bleed Hx of DM - hold home diabetic medications - fingersticks ACHS - [place] sliding Scale - when resuming diet restart on carb consistent Hx of Hypothyroidism - continue home synthroid Prophylaxis - DVT ppx- SCDs as pt is presumed to have GI bleed - GI ppx- protonix 40 IV BID Patient seen, case discussed with, and plan approved by attending physician, Dr. Simpson. Objective - Vital Signs/Intake and Output Vital Signs (last 24 hours): Temp Pulse Resp BP Pulse Ox 99.3 F 77 20 116/58 L 96 02/09/18 06:00 02/09/18 06:00 02/09/18 06:00 02/09/18 06:00 02/09/18 06:00 Intake and Output: 02/09/18 02/09/18 06:59 18:59 Intake Total 240 Output Total 900 Balance -660 - Medications Medications: Current Medications Atorvastatin Calcium (Lipitor) 20 mg PO DAILY [facility] Last Admin: 02/08/18 10:14 Dose: 20 mg Carvedilol (Coreg) 3.125 mg PO BID [facility] Last Admin: 02/08/18 17:11 Dose: 3.125 mg Digoxin (Digoxin) 0.125 mg PO DAILY [facility] Last Admin: 02/08/18 10:14 Dose: 0.125 mg Docusate Sodium (Colace) 100 mg PO BID PRN PRN Reason: Constipation Donepezil HCl (Aricept) 5 mg PO DAILY [facility] Last Admin: 02/08/18 10:14 Dose: 5 mg Furosemide (Lasix) 40 mg PO DAILY [facility] Insulin Human Lispro (Humalog Med) 0 units SC ACHS [facility] PRN Reason: Protocol Last Admin: 02/09/18 08:31 Dose: Not Given Levothyroxine Sodium (Synthroid) 100 mcg PO DAILY [facility] Last Admin: 02/08/18 10:15 Dose: 100 mcg Pantoprazole Sodium (Protonix Inj) 40 mg IVP Q12 [facility] Last Admin: 02/08/18 21:39 Dose: 40 mg Sacubitril/Valsartan (Entresto 24 Mg-26 Mg Tablet) 1 each PO BID [facility] Last Admin: 02/08/18 17:11 Dose: 1 each - Labs Labs: 02/09/18 05:15 02/09/18 05:15 PT 13.9 SECONDS (9.4-12.5) H 02/07/18 10:50 INR 1.20 (0.93-1.08) H 02/07/18 10:50 APTT 30.7 Seconds (25.1-36.5) 02/07/18 10:50 <Teri Simpson - Last Filed: 02/09/18 17:01> Objective - Vital Signs/Intake and Output Vital Signs (last 24 hours): Temp Pulse Resp BP Pulse Ox 98.7 F 75 17 121/67 99 02/09/18 14:14 02/09/18 14:14 02/09/18 14:14 02/09/18 14:14 02/09/18 14:14 Intake and Output: 02/09/18 02/09/18 06:59 18:59 Intake Total 240 0 Output Total 900 400 Balance -660 -400 - Medications Medications: Current Medications Atorvastatin Calcium (Lipitor) 20 mg PO DAILY [facility] Last Admin: 02/09/18 12:45 Dose: Not Given Carvedilol (Coreg) 3.125 mg PO BID [facility] Digoxin (Digoxin) 0.125 mg PO DAILY [facility] Last Admin: 02/09/18 10:50 Dose: 0.125 mg Docusate Sodium (Colace) 100 mg PO BID PRN PRN Reason: Constipation Donepezil HCl (Aricept) 5 mg PO DAILY [facility] Last Admin: 02/09/18 12:44 Dose: Not Given Furosemide (Lasix) 40 mg PO DAILY [facility] Last Admin: 02/09/18 12:44 Dose: Not Given Sodium Chloride (Sodium Chloride 0.9%) 1,000 mls @ 100 mls/hr IV .Q10H [facility] Insulin Human Lispro (Humalog Med) 0 units SC ACHS [facility] PRN Reason: Protocol Last Admin: 02/09/18 12:44 Dose: Not Given Levothyroxine Sodium (Synthroid) 100 mcg PO DAILY [facility] Last Admin: 02/09/18 12:45 Dose: Not Given Pantoprazole Sodium (Protonix Inj) 40 mg IVP Q12 [facility] Last Admin: 02/09/18 12:45 Dose: Not Given Sacubitril/Valsartan (Entresto 24 Mg-26 Mg Tablet) 1 each PO BID [facility] Last Admin: 02/09/18 12:44 Dose: Not Given - Labs Labs: 02/09/18 05:15 02/09/18 05:15 PT 13.9 SECONDS (9.4-12.5) H 02/07/18 10:50 INR 1.20 (0.93-1.08) H 02/07/18 10:50 APTT 30.7 Seconds (25.1-36.5) 02/07/18 10:50 Attending/Attestation - Attestation I have personally seen and examined this patient.: Yes I have fully participated in the care of the patient.: Yes I have reviewed all pertinent clinical information, including history, physical exam and plan: Yes Notes (Text): 02/09/18 16:59 Attending note ; Patient seen and examined with resident. Patient is a 82 year old male with history of CAD s/p stent, CKD, 60-79% left ICA stenosis and 20-39% right ICA stenosis, CHF secondary to systolic dysfunction , AICD, DM-2, glaucoma, chronic atrial fibrillation not on anti cogulation due to GI bleed who was brought for evaluation of shortness of breath. Patient was found to be anemic with a hemoglobin of 7.0. Status post 3 unit PRBC transfusion. Hemoglobin is 8.9 today. denies any dizziness or chest pain. Case discussed with Dr. Baker in detail. CT abdomen and pelvis showed diverticulosis without diverticulitis. Plan for EGD today. Clear liquid diet for breakfast. Nothing by mouth after that. patient needs outpatient hematology evaluation. Cardiomyopathy /atrial fibrillation ; currently rate controlled .Aspirin and Plavix on hold. Cardiology evaluation appreciated. Leg swelling/elevated BNP; continue IV Lasix. Poor systolic dysfunction with ejection fraction of 30%. The diagnosis and treatment plan discussed with patient and patient's daughter in detail. Upon discharge the patient will follow up with Dr. Hussein. case discussed with PMD in detail today. 02/09/18 17:01
[2018-02-09] MEDS: Digoxin 125 mcg (0.125 mg) Tab PO SCH (10:50)
[2018-02-09] MEDS: SACUBITRIL 24mg/VALSARTAN 26mg tab PO SCH ×2 (12:44→18:35)
[2018-02-09] MEDS: Levothyroxine 100 MCG TAB PO SCH (12:45)
[2018-02-09] MEDS ORDERED: Etomidate 20 mg/10ml Inj IV ONE (14:15)
[2018-02-09] MEDS: Sodium Chloride 0.9% 1,000 ML IV SCH (22:31)
[2018-02-10] MEDS: Sodium Chloride 0.9% 1,000 ML IV SCH (02:09)
[2018-02-10 02:54] VITALS: RESP 20
[2018-02-10] MEDS ORDERED: Pantoprazole 40 mg EC Tab PO SCH ×2 (06:00→10:00)
[2018-02-10 06:22] VITALS: TEMP 97.4; O2SAT 97
[2018-02-10 06:55] LABS: BASO # 0.05 K/mm3 (0.0-2.0); BASO % 0.9 % (0.0-3.0); EOS # 0.1 (0.0-0.7); EOS % 1.1 % (1.5-5.0); GRAN # 3.3 (1.4-6.5); GRAN % 62.1 % (50.0-68.0); HEMOGLOBIN 8.9 g/dL (14.0-18.0); LYMPH # 1.4 (1.2-3.4); LYMPH % 26.1 % (22.0-35.0); MEAN CELL VOLUME 77.4 fl (80.0-105.0); MEAN CORPUSCULAR HEMOGLOBIN 23.4 pg (25.0-35.0); MEAN CORPUSCULAR HGB CONC 30.2 g/dl (31.0-37.0); MONO # 0.5 (0.1-0.6); MONO % 9.8 % (1.0-6.0); RBC 3.81 10^6/uL (3.5-6.1); RED CELL DISTRIBUTION WIDTH 18.5 % (11.5-14.5); WHITE BLOOD COUNT 5.3 10^3/ul (4.5-11.0)
[2018-02-10 07:04] LABS: ALB/GLOB RATIO 1.5 (1.1-1.8); ALBUMIN 3.8 g/dL (3.0-4.8); ALT/SGPT 31 U/L (7-56); AST/SGOT 25 U/L (17-59); BLOOD UREA NITROGEN 27 mg/dL (7-21); CALCIUM 8.7 mg/dL (8.4-10.5); GFR AFRICAN-AMERICAN > 60; GFR NON-AFRICAN AMERICAN 53
[2018-02-10 07:10] LABS: B-TYPE NATRIURETIC PEPTIDE 2750 pg/mL (0-450)
--- NOTE | 2018-02-10 08:56 | CP.PCM.DIS ---
<Jadon Arango - Last Filed: 02/10/18 10:50> Provider - Provider Date of Admission: 02/07/18 12:13 Attending physician: Teri Simpson MD Primary care physician: Moy Hussein MD Time Spent in preparation of Discharge (in minutes): 45 Diagnosis - Discharge Diagnosis (1) Erosive gastropathy Status: Chronic Priority: Medium (2) Coronary artery disease Status: Chronic Priority: Medium (3) Congestive heart failure (CHF) Status: Chronic Priority: Medium (4) Symptomatic anemia Status: Resolved Priority: Medium (5) Cholelithiasis Status: Acute (6) Atrial fibrillation Status: Chronic Priority: Medium Hospital Course - Lab Results Lab Results: Most Recent Lab Values WBC 5.3 10^3/ul (4.5-11.0) 02/10/18 06:30 RBC 3.81 10^6/uL (3.5-6.1) 02/10/18 06:30 Hgb 8.9 g/dL (14.0-18.0) L 02/10/18 06:30 Hct 29.5 % (42.0-52.0) L 02/10/18 06:30 MCV 77.4 fl (80.0-105.0) L 02/10/18 06:30 MCH 23.4 pg (25.0-35.0) L 02/10/18 06:30 MCHC 30.2 g/dl (31.0-37.0) L 02/10/18 06:30 RDW 18.5 % (11.5-14.5) H 02/10/18 06:30 Plt Count 132 10^3/uL (120.0-450.0) 02/10/18 06:30 MPV 10.0 fl (7.0-11.0) 02/10/18 06:30 Gran % 62.1 % (50.0-68.0) 02/10/18 06:30 Lymph % (Auto) 26.1 % (22.0-35.0) 02/10/18 06:30 [place] % (Auto) 9.8 % (1.0-6.0) H 02/10/18 06:30 Eos % (Auto) 1.1 % (1.5-5.0) L 02/10/18 06:30 Baso % (Auto) 0.9 % (0.0-3.0) 02/10/18 06:30 Gran # 3.30 (1.4-6.5) 02/10/18 06:30 Lymph # (Auto) 1.4 (1.2-3.4) 02/10/18 06:30 [place] # (Auto) 0.5 (0.1-0.6) 02/10/18 06:30 Eos # (Auto) 0.1 (0.0-0.7) 02/10/18 06:30 Baso # (Auto) 0.05 K/mm3 (0.0-2.0) 02/10/18 06:30 Retic Count 1.12 % (0.5-1.5) 02/07/18 19:21 PT 13.9 SECONDS (9.4-12.5) H 02/07/18 10:50 INR 1.20 (0.93-1.08) H 02/07/18 10:50 APTT 30.7 Seconds (25.1-36.5) 02/07/18 10:50 Sodium 141 mmol/L (132-148) 02/10/18 06:30 Potassium 4.2 mmol/L (3.6-5.0) 02/10/18 06:30 Chloride 104 mmol/L (98-107) 02/10/18 06:30 Carbon Dioxide 26 mmol/L (21-33) 02/10/18 06:30 Anion Gap 15 (10-20) 02/10/18 06:30 BUN 27 mg/dL (7-21) H 02/10/18 06:30 Creatinine 1.3 mg/dl (0.8-1.5) 02/10/18 06:30 Est GFR ( Amer) > 60 02/10/18 06:30 Est GFR (Non-Af Amer) 53 02/10/18 06:30 POC Glucose (mg/dL) 166 mg/dL (65-110) H 02/10/18 07:17 Random Glucose 196 mg/dL (70-110) H 02/10/18 06:30 Calcium 8.7 mg/dL (8.4-10.5) 02/10/18 06:30 Magnesium 2.4 mg/dL (1.7-2.2) H 02/07/18 10:50 Iron 36 ug/dL (45-180) L 02/08/18 05:15 TIBC 390 ug/dL (261-462) 02/08/18 05:15 % Saturation 9 % (20-55) L 02/08/18 05:15 Ferritin 8.8 ng/mL 02/08/18 05:15 Total Bilirubin 0.9 mg/dL (0.2-1.3) 02/10/18 06:30 AST 25 U/L (17-59) 02/10/18 06:30 ALT 31 U/L (7-56) 02/10/18 06:30 Alkaline Phosphatase 130 U/L (38-126) H 02/10/18 06:30 Lactate Dehydrogenase 491 U/L (333-699) 02/08/18 05:15 Total Creatine Kinase 54 U/L (35-230) 02/07/18 22:42 Troponin I 0.12 ng/mL 02/07/18 22:42 NT-Pro-B Natriuret Pep 2750 pg/mL (0-450) H 02/10/18 06:30 Total Protein 6.3 g/dL (5.8-8.3) 02/10/18 06:30 Albumin 3.8 g/dL (3.0-4.8) 02/10/18 06:30 Globulin 2.5 gm/dL 02/10/18 06:30 Albumin/Globulin Ratio 1.5 (1.1-1.8) 02/10/18 06:30 Vitamin B12 645 pg/mL (239-931) 02/08/18 05:15 Folate 13.6 ng/mL 02/08/18 05:15 Urine Color Yellow (YELLOW) 02/07/18 11:30 Urine Appearance Clear (CLEAR) 02/07/18 11:30 Urine pH 6.0 (4.7-8.0) 02/07/18 11:30 Ur Specific Lowry 1.015 (1.005-1.035) 02/07/18 11:30 Urine Protein Trace mg/dL (<30 mg/dL) H 02/07/18 11:30 Urine Glucose (UA) Negative mg/dL (NEGATIVE) 02/07/18 11:30 Urine Ketones Negative mg/dL (NEGATIVE) 02/07/18 11:30 Urine Blood Negative (NEGATIVE) 02/07/18 11:30 Urine Nitrate Negative (NEGATIVE) 02/07/18 11:30 Urine Bilirubin Negative (NEGATIVE) 02/07/18 11:30 Urine Urobilinogen 0.2 E.U./dL (<1 E.U./dL) 02/07/18 11:30 Ur Leukocyte Esterase Negative Fartun/uL (NEGATIVE) 02/07/18 11:30 Urine RBC 0 - 2 /hpf (0-2) 02/07/18 11:30 Urine WBC 1 - 3 /hpf (0-6) 02/07/18 11:30 Ur Epithelial Cells None /hpf (0-5) 02/07/18 11:30 Urine Bacteria Few (NEG) 02/07/18 11:30 Stool Occult Blood Negative (NEGATIVE) 02/08/18 11:12 Influenza Typ A,B (EIA) Negative for flu a/b (NEGATIVE) 02/07/18 10:50 Blood Type O POSITIVE 02/07/18 12:43 Antibody Screen Negative 02/07/18 12:43 Crossmatch See Detail 02/07/18 12:43 BBK History Checked Patient has bt 02/07/18 12:43 - Hospital Course Hospital Course: Patient is a 82 year old male with a past medical history of GI bleed, CHF EF 30%, Atrial Fibrillation, CAD, defibrillator, CAD, TIA's, and Type II Diabetes Mellitus who was admitted for evaluation and treatment of shortness of breath. With the use of physical examinations, lab work, and imaging the patient was diagnosed with and treated for symptomatic anemia along with the patients chronic medical conditions. During their hospital stay the patient was seen by gastroenterology ( Dr. Baker) and cardiology (Dr. Hi) and their recommendations were both appreciated and utilized in the care for this patient. During their hospital stay the patient underwent a CT of the abdomen and pelvis and endoscopy which were reviewed, appreciated, and utilized in the management of the patients clinical course. The CT showed sigmoid diverticulosis , no acute inflammatory changes are related that would indicate diverticuliti, no gross large bowel mass appreciable, cholelithiasis reiterated, stable left adrenal adenoma, stable lucency upper pole left kidney, and an enlarged prostate gland. Endoscopy revealed a small hiatal hernia, a few gastric polyps , normal duodenum, and erosive gastropathy. Patient was treated with 3 units of pRBCS and his hemoglobin is stable above 8 at the time of discharge. He was also treated with antihypertensive medications, synthroid amongst other empiric/ therapeutic medications. At this time the patient is medically stable for discharge. Patient understands and appreciates discharge plan. Patient instructed to follow up with primary care physicians and referrals within three to five days from discharge. Furthermore, the patient is instructed to take medications as prescribed and to return to emergency room for evaluation of intractable headache, fever, chills, dizziness, chest pain, shortness of breath , abdominal pain, nausea, vomiting, diarrhea, constipation, and urinary symptoms. This is a brief summary of the patients hospital course. Please see patient chart for full details. Discharge Exam - Additional Findings Additional findings: - Constitutional Appears: Non-toxic, No Acute Distress - Head Exam Head Exam: ATRAUMATIC, NORMOCEPHALIC - Eye Exam Eye Exam: EOMI - ENT Exam ENT Exam: Mucous Membranes Moist - Respiratory Exam Respiratory Exam: CTA bilaterally - Cardiovascular Exam Cardiovascular Exam: +S1, +S2. absent: Systolic Murmur - GI/Abdominal Exam GI & Abdominal Exam: Normal Bowel Sounds, Soft, Non tender to palpation absent : Distended, Firm, Mass, Rebound, Rigid - Extremities Exam Extremities exam: Positive for: +1 edema bilateral lower extremities, Negative for: calf tenderness, pedal edema - Neurological Exam Neurological exam: Alert, Oriented x3 - Psychiatric Exam Psychiatric exam: Normal Affect, Normal Mood - Skin Skin Exam: Intact, Normal Color, Warm Discharge Plan - Discharge Medications Prescriptions: Pantoprazole [Protonix] 40 mg PO DAILY 21 Days #21 ect - Follow Up Plan Condition: GUARDED Disposition: HOME/ ROUTINE Patient education suggested?: Yes Instructions: Heart Failure, Adult, Gastrointestinal Bleeding (DC) Additional Instructions: Patient Instructions: Take medications as prescribed. New medication: Pantoprazole- take one 40mg tablet daily orally Follow up with PMD and referrals within three to five days from discharge. Return to the emergency room for evaluation of intractable headache, fever, chills, dizziness, chest pain, shortness of breath, abdominal pain, nausea, vomiting, diarrhea, constipation, and urinary symptoms. Referrals: Moy Hussein MD [Primary Care Provider] - Shaun Baker MD [Medical Doctor] - <Teri Simpson - Last Filed: 02/10/18 16:07> Provider - Provider Date of Admission: 02/07/18 12:13 Attending physician: Teri Simpson MD Primary care physician: Moy Hussein MD Hospital Course - Lab Results Lab Results: Most Recent Lab Values WBC 5.3 10^3/ul (4.5-11.0) 02/10/18 06:30 RBC 3.81 10^6/uL (3.5-6.1) 02/10/18 06:30 Hgb 8.9 g/dL (14.0-18.0) L 02/10/18 06:30 Hct 29.5 % (42.0-52.0) L 02/10/18 06:30 MCV 77.4 fl (80.0-105.0) L 02/10/18 06:30 MCH 23.4 pg (25.0-35.0) L 02/10/18 06:30 MCHC 30.2 g/dl (31.0-37.0) L 02/10/18 06:30 RDW 18.5 % (11.5-14.5) H 02/10/18 06:30 Plt Count 132 10^3/uL (120.0-450.0) 02/10/18 06:30 MPV 10.0 fl (7.0-11.0) 02/10/18 06:30 Gran % 62.1 % (50.0-68.0) 02/10/18 06:30 Lymph % (Auto) 26.1 % (22.0-35.0) 02/10/18 06:30 [place] % (Auto) 9.8 % (1.0-6.0) H 02/10/18 06:30 Eos % (Auto) 1.1 % (1.5-5.0) L 02/10/18 06:30 Baso % (Auto) 0.9 % (0.0-3.0) 02/10/18 06:30 Gran # 3.30 (1.4-6.5) 02/10/18 06:30 Lymph # (Auto) 1.4 (1.2-3.4) 02/10/18 06:30 [place] # (Auto) 0.5 (0.1-0.6) 02/10/18 06:30 Eos # (Auto) 0.1 (0.0-0.7) 02/10/18 06:30 Baso # (Auto) 0.05 K/mm3 (0.0-2.0) 02/10/18 06:30 Retic Count 1.12 % (0.5-1.5) 02/07/18 19:21 PT 13.9 SECONDS (9.4-12.5) H 02/07/18 10:50 INR 1.20 (0.93-1.08) H 02/07/18 10:50 APTT 30.7 Seconds (25.1-36.5) 02/07/18 10:50 Sodium 141 mmol/L (132-148) 02/10/18 06:30 Potassium 4.2 mmol/L (3.6-5.0) 02/10/18 06:30 Chloride 104 mmol/L (98-107) 02/10/18 06:30 Carbon Dioxide 26 mmol/L (21-33) 02/10/18 06:30 Anion Gap 15 (10-20) 02/10/18 06:30 BUN 27 mg/dL (7-21) H 02/10/18 06:30 Creatinine 1.3 mg/dl (0.8-1.5) 02/10/18 06:30 Est GFR ( Amer) > 60 02/10/18 06:30 Est GFR (Non-Af Amer) 53 02/10/18 06:30 POC Glucose (mg/dL) 276 mg/dL (65-110) H 02/10/18 11:21 Random Glucose 196 mg/dL (70-110) H 02/10/18 06:30 Calcium 8.7 mg/dL (8.4-10.5) 02/10/18 06:30 Magnesium 2.4 mg/dL (1.7-2.2) H 02/07/18 10:50 Iron 36 ug/dL (45-180) L 02/08/18 05:15 TIBC 390 ug/dL (261-462) 02/08/18 05:15 % Saturation 9 % (20-55) L 02/08/18 05:15 Ferritin 8.8 ng/mL 02/08/18 05:15 Total Bilirubin 0.9 mg/dL (0.2-1.3) 02/10/18 06:30 AST 25 U/L (17-59) 02/10/18 06:30 ALT 31 U/L (7-56) 02/10/18 06:30 Alkaline Phosphatase 130 U/L (38-126) H 02/10/18 06:30 Lactate Dehydrogenase 491 U/L (333-699) 02/08/18 05:15 Total Creatine Kinase 54 U/L (35-230) 02/07/18 22:42 Troponin I 0.12 ng/mL 02/07/18 22:42 NT-Pro-B Natriuret Pep 2750 pg/mL (0-450) H 02/10/18 06:30 Total Protein 6.3 g/dL (5.8-8.3) 02/10/18 06:30 Albumin 3.8 g/dL (3.0-4.8) 02/10/18 06:30 Globulin 2.5 gm/dL 02/10/18 06:30 Albumin/Globulin Ratio 1.5 (1.1-1.8) 02/10/18 06:30 Vitamin B12 645 pg/mL (239-931) 02/08/18 05:15 Folate 13.6 ng/mL 02/08/18 05:15 Urine Color Yellow (YELLOW) 02/07/18 11:30 Urine Appearance Clear (CLEAR) 02/07/18 11:30 Urine pH 6.0 (4.7-8.0) 02/07/18 11:30 Ur Specific Lowry 1.015 (1.005-1.035) 02/07/18 11:30 Urine Protein Trace mg/dL (<30 mg/dL) H 02/07/18 11:30 Urine Glucose (UA) Negative mg/dL (NEGATIVE) 02/07/18 11:30 Urine Ketones Negative mg/dL (NEGATIVE) 02/07/18 11:30 Urine Blood Negative (NEGATIVE) 02/07/18 11:30 Urine Nitrate Negative (NEGATIVE) 02/07/18 11:30 Urine Bilirubin Negative (NEGATIVE) 02/07/18 11:30 Urine Urobilinogen 0.2 E.U./dL (<1 E.U./dL) 02/07/18 11:30 Ur Leukocyte Esterase Negative Fartun/uL (NEGATIVE) 02/07/18 11:30 Urine RBC 0 - 2 /hpf (0-2) 02/07/18 11:30 Urine WBC 1 - 3 /hpf (0-6) 02/07/18 11:30 Ur Epithelial Cells None /hpf (0-5) 02/07/18 11:30 Urine Bacteria Few (NEG) 02/07/18 11:30 Stool Occult Blood Negative (NEGATIVE) 02/08/18 11:12 Influenza Typ A,B (EIA) Negative for flu a/b (NEGATIVE) 02/07/18 10:50 Blood Type O POSITIVE 02/07/18 12:43 Antibody Screen Negative 02/07/18 12:43 Crossmatch See Detail 02/07/18 12:43 BBK History Checked Patient has bt 02/07/18 12:43 Attending/Attestation - Attestation I have personally seen and examined this patient.: Yes I have fully participated in the care of the patient.: Yes I have reviewed all pertinent clinical information, including history, physical exam and plan: Yes Notes (Text): 02/10/18 16:06 Attending note ; Patient seen and examined with resident. Patient is a 82 year old male with history of CAD s/p stent, CKD, 60-79% left ICA stenosis and 20-39% right ICA stenosis, CHF secondary to systolic dysfunction , AICD, DM-2, glaucoma, chronic atrial fibrillation not on anti cogulation due to GI bleed who was brought for evaluation of shortness of breath. Patient was found to be anemic with a hemoglobin of 7.0. Status post 3 unit PRBC transfusion. Hemoglobin is 8.9 today. Status post EGD yesterday. Some gastric erosion. No significant ulcer. Will be discharged with by mouth Protonix. denies any dizziness or chest pain. Cardiomyopathy / h/o atrial fibrillation ; s/p Watchman's procedure. Case discussed with transit worker in detail. Advised to start only aspirin. Plavix discontinued. Follow-up CBC closely. Lab results and endoscopy findings given to the patient. The diagnosis and treatment plan discussed with patient and patient's daughter in detail. Upon discharge the patient will follow up with Dr. Hussein.
[2018-02-10] MEDS: Levothyroxine 100 MCG TAB PO SCH (10:06)
[2018-02-10] MEDS: Digoxin 125 mcg (0.125 mg) Tab PO SCH (10:07)
[2018-02-10] MEDS: SACUBITRIL 24mg/VALSARTAN 26mg tab PO SCH (10:11)
[2018-02-10] MEDS: Insulin Lispro (humaLOG) MEDIUM Coverage SC SCH ×2 (10:12→12:16)
[2018-02-10 10:20] VITALS: BP 126/65; PULSE 78
--- NOTE | 2018-02-10 16:32 | PN ---
DATE: 02/10/2018 SUBJECTIVE: The patient is seen sitting in a chair on telemetry. He feels more comfortable. He underwent endoscopy at which time he was found to have some superficial gastric erosions. He otherwise feels back to his baseline. CURRENT MEDICATIONS: Include Aricept 5 mg daily, carvedilol 3.125 mg b.i.d., digoxin 0.125 mg daily, Entresto 24 per 26 mg b.i.d., Lasix 40 mg daily, Lipitor 20 mg daily, Protonix 40 mg daily, and Synthroid 100 mcg daily. PHYSICAL EXAMINATION: GENERAL: He is an elderly man who appears comfortable at the present time. VITAL SIGNS: Blood pressure is 126/65 with a pulse of 76 with ventricular pacing, respirations are 14, he is afebrile. HEENT: No JVD. CHEST: A few scattered rhonchi heard. HEART: PMI displaced laterally with soft tones noted and systolic murmur present at the apex. ABDOMEN: Soft and nontender with normoactive bowel sounds. EXTREMITIES: No edema. DIAGNOSTIC DATA: Potassium 4.2, BUN and creatinine 27 and 1.3 with glucose of 196. White count 5.3, hemoglobin and hematocrit of 8.9 and 29.5 with a platelet count of 132,000. IMPRESSION: 1. Recurrent anemia, status post transfusion. 2. Gastric erosions, likely source of bleeding. The patient has been maintained on aspirin and Plavix following a recent left atrial appendage occlusion placement. 3. Coronary artery disease, status post remote myocardial infarction. 4. Severe left ventricular dysfunction. 5. Chronic atrial fibrillation, not currently anticoagulated because of recurrent gastrointestinal bleeding. 6. History of hypertension and diabetes. RECOMMENDATIONS: His oral medications will be continued. Aspirin will be resumed as this has been felt to be safe from a GI standpoint. Plavix will not be resumed as this has been more than 45 days since implant of his device. Close outpatient followup will be arranged. Yogi Taylor MD
--- NOTE | 2018-02-12 16:26 | PQF CHF ---
02/12/18 Dr. Taylor, Please indicate whether CHF is acute, chronic, or both. Thank you. Clarification of your documentation is requested to better reflect the severity of illness and intensity of treatment of your patient. Indicators present [] Diagnosis of CHF and/or history of CHF [] BNP > 200 [] Imaging Finding of Pulmonary Edema /Pleural Effusions [] Fluid/Volume Overload [] Pitting edema [] Ejection Fraction < 40% (Indicative of Systolic Heart Failure) [] Ejection Fraction > 40% (Indicative of Diastolic Heart Failure) [] Dyspnea / Orthopenea / Paroxysmal Nocturnal Dyspnea [] Other: Location in the medical record that reflects the above clinical findings: [] Treatment Provided: [] PHYSICIAN'S RESPONSE Based on your medical judgment of the clinical indicators outlined above, are you treating this patient for a known or suspected: [] Acute CHF [] Systolic [] Diastolic [] Combined [] Chronic CHF [] Systolic [] Diastolic [] Combined [] Acute on Chronic CHF []Systolic [] Diastolic [] Combined [] CHF due hypertension [] Acute systolic []Chronic systolic [] Acute/ chronic systolic [] Other, please indicate: [] [] If Unable to Determine, please check the box, sign and date. Present On Admission (POA) Indicator: [] Present at the time of admission [] Not present at the time of admission [] Clinically Undetermined In responding to this query, please exercise your independent professional judgment. The fact that a question is asked does not imply that any particular answer is desired or expected. Thank you for your clarification on this documentation. If you have any questions please call:[ ] * Thank you, [ ] gse mechanic VICTORIA
== END 2018-02-10 12:52 | disposition home or self-care (01) | DRG 377 ==
LOC: ED 10:12 → ERH 12:13 → 2RNO 15:14
PROVIDERS: ADMIT Internal Medicine; ATTEND Internal Medicine
PROC: 30233N1 Transfusion of Nonautologous Red Blood Cells into Peripheral Vein, Percutaneous Approach (ICD-10-PCS; 2018-02-07)
PROC: 0DJ08ZZ Inspection of Upper Intestinal Tract, Via Natural or Artificial Opening Endoscopic (ICD-10-PCS; principal; 2018-02-09 15:45)
DX: K92.2 Gastrointestinal hemorrhage, unspecified (principal); I50.21 Acute systolic (congestive) heart failure; I13.0 Hypertensive heart and chronic kidney disease with heart failure and stage 1 through stage 4 chronic kidney disease, or unspecified chronic kidney disease; I48.92 Unspecified atrial flutter; D62 Acute posthemorrhagic anemia; K31.7 Polyp of stomach and duodenum; K31.9 Disease of stomach and duodenum, unspecified; I25.10 Atherosclerotic heart disease of native coronary artery without angina pectoris; B96.81 Helicobacter pylori [H. pylori] as the cause of diseases classified elsewhere; D35.02 Benign neoplasm of left adrenal gland; D63.8 Anemia in other chronic diseases classified elsewhere; E03.9 Hypothyroidism, unspecified; E10.22 Type 1 diabetes mellitus with diabetic chronic kidney disease; E78.5 Hyperlipidemia, unspecified; Z86.73 Personal history of transient ischemic attack (TIA), and cerebral infarction without residual deficits; Z95.0 Presence of cardiac pacemaker; Z95.5 Presence of coronary angioplasty implant and graft; Z95.810 Presence of automatic (implantable) cardiac defibrillator; Z98.42 Cataract extraction status, left eye; Z79.02 Long term (current) use of antithrombotics/antiplatelets; Z79.4 Long term (current) use of insulin; K29.70 Gastritis, unspecified, without bleeding; H40.9 Unspecified glaucoma; I25.2 Old myocardial infarction; I25.5 Ischemic cardiomyopathy; I34.0 Nonrheumatic mitral (valve) insufficiency; I48.2 Chronic atrial fibrillation; I65.23 Occlusion and stenosis of bilateral carotid arteries; I67.9 Cerebrovascular disease, unspecified; K44.9 Diaphragmatic hernia without obstruction or gangrene; K57.30 Diverticulosis of large intestine without perforation or abscess without bleeding; K80.20 Calculus of gallbladder without cholecystitis without obstruction; N18.9 Chronic kidney disease, unspecified; N40.0 Benign prostatic hyperplasia without lower urinary tract symptoms